=== PATIENT | female | born 1975 | race Hispanic/Latino ===

== ENCOUNTER 2018-05-17 19:08 | Emergency (ER) | payer OTHER ==
[~2018-05-17] VITALS: Ht 157.5 cm; Wt 133.4 kg
--- OUTSIDE RECORDS SUMMARY | ~2018-05-17 | XMS | Encounter Summary ---
Demographics + + + | Address | [address] | | | [place] [address] | + + + | Home Phone | | + + + | Preferred Language | Unknown | + + + | Marital Status | Legally | + + + | Faith Affiliation | 1025 | + + + | Race | Unknown | + + + | Ethnic Group | Unknown | + + + Author + + + | Author | [facility] | | | and [place] | + + + | Organization | [facility] | | | and [place] | + + + | Address | Unknown | + + + | Phone | Unavailable | + + + Support + + + + + | Name | Relationship | Address | Phone | + + + + + | Mar Ahmadi | ECON | NA | | | | | [place] [address] | | + + + + + | Magdaleno Vásquez | ECON | [address] | | | o | | [place] | | | | | [address] | | + + + + + Care Team Providers + +------+ + | Care Lapidary Apprentice Name | Role | Phone | + +------+ + | Barbara Hill MD | PCP | | + +------+ + Reason for Visit + + + | Reason | Comments | + + + | Mental Health | | | Problem | | + + + Encounter Details +--------+ + + + + | Date | Type | Department | Care Team | Description | +--------+ + + + + | 03/27/ | Emergency | [facility] | Yemi Brian, | Bipolar I disorder, | | 2019 | | [facility] | [address] | single manic | | | | CENTER [address] | [place], [place] | episode, severe, | | | | [place], [place] | [phone] | with psychosis (HCC) | | | | [address] | | (Primary Dx); | | | | [phone] | Luke Fuentes | Medical clearance | | | | | MD Iman [address] | for psychiatric | | | | | ST [place], [place] | admission | | | | | [address] | | | | | | [phone] | | | | | | | | +--------+ + + + + Social History + +-------+ +--------+------+ | Tobacco Use | Types | Packs/Day | Years | Date | | | | | Used | | + +-------+ +--------+------+ | Never Smoker | | | | | + +-------+ +--------+------+ + +---+---+---+ | Smokeless Tobacco: | | | | | Never Used | | | | + +---+---+---+ + + +---------+ + | Alcohol Use | Drinks/We | oz/Week | Comments | | | ek | | | + + +---------+ + | No | | | Was told she cannot drink after bariatirc | | | | | surgery - did not drink much before | + + +---------+ + + + + | Sex Assigned at | Date Recorded | | | | + + + | Not on file | | + + + as of this encounter Last Filed Vital Signs + + + + | Vital Sign | Reading | Time Taken | + + + + | Blood Pressure | 138/86 | 03/27/2018 1619 PST | + + + + | Pulse | 115 | 03/27/20181618 PST | + + + + | Temperature | 36.8 C (98.3 F) | 03/27/20181618 PST | + + + + | Respiratory Rate | 16 | 03/27/20181618 PST | + + + + | Oxygen Saturation | 99% | 03/27/20181618 PST | + + + + | Inhaled Oxygen | - | - | | Concentration | | | + + + + | Weight | - | - | + + + + | Height | - | - | + + + + | Body Mass Index | - | - | + + + + in this encounter Medications at Time of Discharge + + +-------+---------+ + + | Medication | Sig. | Disp. | Refills | Start | End Date | | | | | | Date | | + + +-------+---------+ + + | Calcium | Take 1 tablet by | | | | | | Citrate-Vitamin D | mouth Daily. | | | | | | (CALCIUM CITRATE + | | | | | | | PO) | | | | | | + + +-------+---------+ + + | cyanocobalamin | Take 1,000 mcg by | | | | | | (VITAMIN B-12) 1000 | mouth Daily. | | | | | | MCG tablet | | | | | | + + +-------+---------+ + + | metFORMIN | Take 1,000 mg by | | | 07/09/19 | | | (GLUCOPHAGE) 500 mg | mouth 2 times daily | | | 18 | | | tablet | (with breakfast & | | | | | | | dinner). | | | | | + + +-------+---------+ + + | Multiple | Take 1 tablet by | | | | | | Vitamins-Minerals | mouth Daily. | | | | | | (MULTIVITAMIN ADULT | | | | | | | PO) | | | | | | + + +-------+---------+ + + as of this encounter Plan of Treatment +--------+ + + + + | Date | Type | Specialty | Care Team | Description | +--------+ + + + + | 08/05/ | Office | Cardiology | Kev Dumont | | | 2018 | Visit | | MD Noe [address] | | | | | [address] [place] | | | | | | [place] [address] | | | | | | [phone] | | | | | | | | +--------+ + + + + | 02/24/ | Appointment | Oncology | Guillermo, | | | 2018 | | | Luke Antony MD [address] | | | | | [address] [place] | | | | | | [place] [address] | | | | | | [phone] | | | | | | | | +--------+ + + + + as of this encounter Procedures + +--------+ + + + | Procedure Name | Priori | Date/Time | Associated Diagnosis | Comments | | | ty | | | | + +--------+ + + + | POC GLUCOSE | Routin | 03/27/2018 | | Results for this | | | e | 1211 PST | | procedure are in the | | | | | | results section. | + +--------+ + + + | POC GLUCOSE | Routin | 03/27/2018 | | Results for this | | | e | 0846 PST | | procedure are in the | | | | | | results section. | + +--------+ + + + | HCG, URINE, QUAL | STAT | 03/27/2018 | | Results for this | | | | 0222 PST | | procedure are in the | | | | | | results section. | + +--------+ + + + | DRUGS OF ABUSE, | STAT | 03/27/2018 | | Results for this | | SCREEN, URINE | | 0222 PST | | procedure are in the | | | | | | results section. | + +--------+ + + + | CBC WITH | STAT | 03/27/2018 | | Results for this | | DIFFERENTIAL | | 221 PST | | procedure are in the | | | | | | results section. | + +--------+ + + + | TSH | STAT | 03/27/2018 | | Results for this | | | | 0222 PST | | procedure are in the | | | | | | results section. | + +--------+ + + + | ALCOHOL | STAT | 03/27/2018 | | Results for this | | | | 022 PST | | procedure are in the | | | | | | results section. | + +--------+ + + + | ACETAMINOPHEN LEVEL | STAT | 03/27/2018 | | Results for this | | | | 2 PST | | procedure are in the | | | | | | results section. | + +--------+ + + + | SALICYLATE LEVEL | STAT | 03/27/2018 | | Results for this | | | | 0222 PST | | procedure are in the | | | | | | results section. | + +--------+ + + + | COMPREHENSIVE | STAT | 03/27/2018 | | Results for this | | METABOLIC PANEL | | 2 PST | | procedure are in the | | | | | | results section. | + +--------+ + + + in this encounter Results POC Glucose (03/27/2018 1211) + +---------+ + + | Component | Value | Ref Range | Performed At | + +---------+ + + | Glucose, POC | 235 (H) | 70 - 109 mg/dL | [facility] | | | | | [facility] | | | | | CENTER - | | | | | LABORATORY | + +---------+ + + + + | Specimen | + + | Blood | + + + + + + + | Performing | Address | City/State/Zipcode | Phone Number | | Organization | | | | + + + + + | [facility] | [address] | [place] | [phone] | | [facility] | | [address] | | | - LABORATORY | | | | + + + + + | [facility] | [address] | [place], [place] | | | [facility] | | [address] | | | - LABORATORY | | | | + + + + + POC Glucose (03/27/2018845) + +---------+ + + | Component | Value | Ref Range | Performed At | + +---------+ + + | Glucose, POC | 201 (H) | 70 - 109 mg/dL | [facility] | | | | | [facility] | | | | | CENTER - | | | | | LABORATORY | + +---------+ + + + + | Specimen | + + | Blood | + + + + + + + | Performing | Address | City/State/Zipcode | Phone Number | | Organization | | | | + + + + + | [facility] | [address] | [place], [place] | [phone] | | [facility] | | [address] | | | - LABORATORY | | | | + + + + + | [facility] | [address] | [place], [place] | | | [facility] | | [address] | | | - LABORATORY | | | | + + + + + TSH (03/27/2018221) + + + + + | Component | Value | Ref Range | Performed At | + + + + + | TSH | 1.07Comment: This is a | 0.45 - 5.33 uIU/mL | [facility] | | | third generation TSH | | [facility] | | | test. | | CENTER - | | | | | LABORATORY | + + + + + + + | Specimen | + + | Blood | + + + + + + + | Performing | Address | City/State/Zipcode | Phone Number | | Organization | | | | + + + + + | [facility] | [address] | [place] | [phone] | | [facility] | | [address] | | | - LABORATORY | | | | + + + + + | [facility] | [address] | [place], [place] | | | [facility] | | [address] | | | - LABORATORY | | | | + + + + + , Urine, Qual (03/27/2018221) + + + + + | Component | Value | Ref Range | Performed At | + + + + + | HCG SCREEN, URINE | Negative | Negative | [facility] | | | | | [facility] | | | | | CENTER - | | | | | LABORATORY | + + + + + + + | Specimen | + + | Urine - Urine, Clean | | Catch | + + + + + + + | Performing | Address | City/State/Zipcode | Phone Number | | Organization | | | | + + + + + | [facility] | [address] | [place], [place] | [phone] | | [facility] | | [address] | | | - LABORATORY | | | | + + + + + | [facility] | [address] | [place], [place] | | | [facility] | | [address] | | | - LABORATORY | | | | + + + + + Salicylate Level (03/27/2018221) + +-------+ + + | Component | Value | Ref Range | Performed At | + +-------+ + + | Salicylate Level | <4.0 | <30.0 mg/dL | [facility] | | | | | [facility] | | | | | CENTER - | | | | | LABORATORY | + +-------+ + + + + | Specimen | + + | Blood | + + + + + + + | Performing | Address | City/State/Zipcode | Phone Number | | Organization | | | | + + + + + | [facility] | [address] | [place] | [phone] | | [facility] | | [address] | | | - LABORATORY | | | | + + + + + | [facility] | [address] | [place] | | | [facility] | | [address] | | | - LABORATORY | | | | + + + + + Acetaminophen Level (03/27/2018221) + +-------+ + + | Component | Value | Ref Range | Performed At | + +-------+ + + | Acetaminophen Level | <10 | <10 ug/mL | [facility] | | | | | [facility] | | | | | CENTER - | | | | | LABORATORY | + +-------+ + + + + | Specimen | + + | Blood | + + + + + + + | Performing | Address | City/State/Zipcode | Phone Number | | Organization | | | | + + + + + | [facility] | [address] | [place] | [phone] | | [facility] | | [address] | | | - LABORATORY | | | | + + + + + | [facility] | [address] | [place] | | | [facility] | | [address] | | | - LABORATORY | | | | + + + + + Ethanol (03/27/2018221) + +-------+ + + | Component | Value | Ref Range | Performed At | + +-------+ + + | ALCOHOL, | <5 | <400 mg/dL | [facility] | | SERUM/PLASMA | | | [facility] | | | | | CENTER - | | | | | LABORATORY | + +-------+ + + + + | Specimen | + + | Blood | + + + + + + + | Performing | Address | City[facility] | Phone Number | | Organization | | | | + + + + + | [facility] | [address] | [place] | [phone] | | [facility] | | [address] | | | - LABORATORY | | | | + + + + + | [facility] | [address] | [place] | | | [facility] | | [address] | | | - LABORATORY | | | | + + + + + Drugs of Abuse, Screen, Urine (03/27/2018221) + + + + + | Component | Value | Ref Range | Performed At | + + + + + | Amphetamine Screen, | Negative | Negative | [facility] | | Urine | | | [facility] | | | | | CENTER - | | | | | LABORATORY | + + + + + | Barbiturates Screen, | Negative | Negative | [facility] | | Urine | | | [facility] | | | | | CENTER - | | | | | LABORATORY | + + + + + | Benzodiazepines | Positive (A) | Negative | [facility] | | Screen, Urine | | | [facility] | | | | | CENTER - | | | | | LABORATORY | + + + + + | Cannabinoids Screen, | Negative | Negative | [facility] | | Urine | | | [facility] | | | | | CENTER - | | | | | LABORATORY | + + + + + | Cocaine Screen, | Negative | Negative | [facility] | | Urine | | | [facility] | | | | | CENTER - | | | | | LABORATORY | + + + + + | Methadone Screen, | Negative | Negative | [facility] | | Urine | | | [facility] | | | | | CENTER - | | | | | LABORATORY | + + + + + | Opiates Screen, | Negative | Negative | [facility] | | Urine | | | [facility] | | | | | CENTER - | | | | | LABORATORY | + + + + + + + | Specimen | + + | Urine - Urine, Clean | | Catch | + + + + + + + | Performing | Address | City/State/Zipcode | Phone Number | | Organization | | | | + + + + + | [facility] | [address] | [place], [place] | [phone] | | [facility] | | [address] | | | - LABORATORY | | | | + + + + + | [facility] | [address] | [place], [place] | | | [facility] | | [address] | | | - LABORATORY | | | | + + + + + Comprehensive Metabolic Panel (03/27/2018221) + + + + + | Component | Value | Ref Range | Performed At | + + + + + | Na | 132 (L) | 136 - 149 mmol/L | [facility] | | | | | [facility] | | | | | CENTER - | | | | | LABORATORY | + + + + + | K | 4.2 | 3.5 - 5.1 mmol/L | [facility] | | | | | [facility] | | | | | CENTER - | | | | | LABORATORY | + + + + + | Cl | 97 (L) | 98 - 109 mmol/L | [facility] | | | | | [facility] | | | | | CENTER - | | | | | LABORATORY | + + + + + | CO2 | 22 (L) | 24 - 31 mmol/L | [facility] | | | | | [facility] | | | | | CENTER - | | | | | LABORATORY | + + + + + | Anion Gap | 13 | 3 - 16 mmol/L | [facility] | | | | | [facility] | | | | | CENTER - | | | | | LABORATORY | + + + + + | Glucose | 378 (H) | 70 - 109 mg/dL | [facility] | | | | | [facility] | | | | | CENTER - | | | | | LABORATORY | + + + + + | BUN | 16 | 7 - 18 mg/dL | [facility] | | | | | [facility] | | | | | CENTER - | | | | | LABORATORY | + + + + + | Creatinine | 0.56 (L) | 0.60 - 1.30 mg/dL | [facility] | | | | | [facility] | | | | | CENTER - | | | | | LABORATORY | + + + + + | eGFR if not | >60Comment: GLOMERULAR | >=60 mL/min/1.73m2 | [facility] | | NEPALESE | FILTRATION | | [facility] | | | RATE,ESTIMATED mL/min | | CENTER - | | | /[id number] than 60 | | LABORATORY | | | Chronic kidney | | | | | disease,if found over a | | | | | 3-month period.Less than | | | | | 15 Kidney | | | | | failureFor | | | | | Americans,multiply the | | | | | calculated GFR by 1.21. | | | | | | | | + + + + + | Ca | 9.8 | 8.3 - 10.5 mg/dL | [facility] | | | | | [facility] | | | | | CENTER - | | | | | LABORATORY | + + + + + | Albumin | 4.0 | 3.2 - 5.0 g/dL | [facility] | | | | | [facility] | | | | | CENTER - | | | | | LABORATORY | + + + + + | Bilirubin Total | 0.5Comment: This is an | 0.1 - 1.5 mg/dL | [facility] | | | appended report. These | | [facility] | | | results have been | | CENTER - | | | appended to a previously | | LABORATORY | | | preliminary verified | | | | | report. | | | + + + + + | Total Protein | 7.6 | 6.0 - 7.8 g/dL | [facility] | | | | | [facility] | | | | | CENTER - | | | | | LABORATORY | + + + + + | AST | 21Comment: This is an | 10 - 42 U/L | [facility] | | | appended report. These | | [facility] | | | results have been | | CENTER - | | | appended to a previously | | LABORATORY | | | preliminary verified | | | | | report. | | | + + + + + | ALT | 17Comment: This is an | 6 - 45 U/L | [facility] | | | appended report. These | | [facility] | | | results have been | | CENTER - | | | appended to a previously | | LABORATORY | | | preliminary verified | | | | | report. | | | + + + + + | Alkaline Phosphatase | 116 (H)Comment: This is | 40 - 110 U/L | [facility] | | | an appended report. | | [facility] | | | These results have been | | CENTER - | | | appended to a previously | | LABORATORY | | | preliminary verified | | | | | report. | | | + + + + + | Globulin | 3.6 | 2.1 - 3.8 g/dL | [facility] | | | | | [facility] | | | | | CENTER - | | | | | LABORATORY | + + + + + | Albumin/Globulin | 1.1 | 0.8 - 2.0 | [facility] | | Ratio | | | [facility] | | | | | CENTER - | | | | | LABORATORY | + + + + + | BUN/Creatinine Ratio | 28.6 | | [facility] | | | | | [facility] | | | | | CENTER - | | | | | LABORATORY | + + + + + + + | Specimen | + + | Blood | + + + + + + + | Performing | Address | City/State/Zipcode | Phone Number | | Organization | | | | + + + + + | [facility] | [address] | [place] | [phone] | | [facility] | | [address] | | | - LABORATORY | | | | + + + + + | [facility] | [address] | [place] | | | [facility] | | [address] | | | - LABORATORY | | | | + + + + + CBC with Differential (03/27/2018221) + + + + + | Component | Value | Ref Range | Performed At | + + + + + | WBC | 10.2 | 4.0 - 11.0 K/uL | [facility] | | | | | [facility] | | | | | CENTER - | | | | | LABORATORY | + + + + + | RBC | 4.66 | 3.70 - 5.20 M/uL | [facility] | | | | | [facility] | | | | | CENTER - | | | | | LABORATORY | + + + + + | Hemoglobin | 13.7 | 11.5 - 16.0 g/dL | [facility] | | | | | [facility] | | | | | CENTER - | | | | | LABORATORY | + + + + + | Hematocrit | 41.9 | 34.0 - 47.0 % | [facility] | | | | | [facility] | | | | | CENTER - | | | | | LABORATORY | + + + + + | MCV | 89.9 | 83.0 - 101.0 fL | [facility] | | | | | [facility] | | | | | CENTER - | | | | | LABORATORY | + + + + + | MCH | 29.4 | 28.0 - 35.0 pg | [facility] | | | | | [facility] | | | | | CENTER - | | | | | LABORATORY | + + + + + | MCHC | 32.7 | 32.0 - 36.0 g/dL | [facility] | | | | | [facility] | | | | | CENTER - | | | | | LABORATORY | + + + + + | RDW-CV | 12.3 | <15.0 % | [facility] | | | | | [facility] | | | | | CENTER - | | | | | LABORATORY | + + + + + | RDW-SD | 40.8 | 35.1 - 46.3 fL | [facility] | | | | | [facility] | | | | | CENTER - | | | | | LABORATORY | + + + + + | Platelet Count | 367 | 140 - 440 K/uL | [facility] | | | | | [facility] | | | | | CENTER - | | | | | LABORATORY | + + + + + | MPV | 8.9 | 6.5 - 12.4 fL | [facility] | | | | | [facility] | | | | | CENTER - | | | | | LABORATORY | + + + + + | % Neutrophils | 81.3 | 45.0 - 82.0 % | [facility] | | | | | [facility] | | | | | CENTER - | | | | | LABORATORY | + + + + + | % Lymphocytes | 13.4 (L) | 20.0 - 45.0 % | [facility] | | | | | [facility] | | | | | CENTER - | | | | | LABORATORY | + + + + + | % Monocytes | 4.5 | 4.0 - 12.0 % | [facility] | | | | | [facility] | | | | | CENTER - | | | | | LABORATORY | + + + + + | % Eosinophils | 0.2 | 0.0 - 5.0 % | [facility] | | | | | [facility] | | | | | CENTER - | | | | | LABORATORY | + + + + + | % Basophils | 0.2 | 0.0 - 1.0 % | [facility] | | | | | [facility] | | | | | CENTER - | | | | | LABORATORY | + + + + + | % Immature | 0.4Comment: For | 0.0 - 0.4 % | [facility] | | Granulocytes | patients, use the | | [facility] | | | special reference ranges | | CENTER - | | | listed below. | | LABORATORY | + + + + + | Absolute Neutrophils | 8.30 | 1.80 - 8.50 K/uL | [facility] | | | | | [facility] | | | | | CENTER - | | | | | LABORATORY | + + + + + | Absolute Lymphocytes | 1.37 | 0.60 - 3.20 K/uL | [facility] | | | | | [facility] | | | | | CENTER - | | | | | LABORATORY | + + + + + | Absolute Monocytes | 0.46 | 0.00 - 1.00 K/uL | [facility] | | | | | [facility] | | | | | CENTER - | | | | | LABORATORY | + + + + + | Absolute Eosinophils | 0.02 | 0.00 - 0.40 K/uL | [facility] | | | | | [facility] | | | | | CENTER - | | | | | LABORATORY | + + + + + | Absolute Basophils | 0.02 | 0.00 - 0.10 K/uL | [facility] | | | | | [facility] | | | | | CENTER - | | | | | LABORATORY | + + + + + | Absolute Immature | 0.04 (H)Comment: For | 0.00 - 0.03 K/uL | [facility] | | Granulocytes | patients, use | | [facility] | | | the special reference | | CENTER - | | | ranges listed below. | | LABORATORY | + + + + + | % nRBC | 0 | 0 - 2 per 100 WBC's | [facility] | | | | | [facility] | | | | | CENTER - | | | | | LABORATORY | + + + + + | Absolute nRBC | 0.00 | 0.00 - 0.01 K/uL | [facility] | | | | | [facility] | | | | | CENTER - | | | | | LABORATORY | + + + + + + + | Specimen | + + | Blood | + + + + + | Narrative | Performed At | + + + | IMMATURE GRANULOCYTES - For patients, use the following | [facility] | | reference ranges: Trim. Absolute (K/uL) Percentage (%) | [facility] | | 1st 0.003-0.091 K/uL 0.0-0.9% 2nd 0.007-0.247 K/uL [facility] | | 0.1-2.0% 3rd 0.018-0.456 K/uL 0.1-2.0% | - LABORATORY | + + + + + + + + | Performing | Address | City/State/Zipcode | Phone Number | | Organization | | | | + + + + + | [facility] | [address] | [place], [place] | [phone] | | [facility] | | [address] | | | - LABORATORY | | | | + + + + + | [facility] | [address] | [place], [place] | | | [facility] | | [address] | | | - LABORATORY | | | | + + + + + in this encounter Visit Diagnoses + + | Diagnosis | + + | Bipolar I disorder, single manic episode, severe, with psychosis (HCC) - Primary | + + | Bipolar I disorder, single manic episode, severe, specified as with psychotic behavior | + + | Medical clearance for psychiatric admission | + + Administered Medications + +--------+ +--------+------+------+ | Medication Order | MAR | Action | Dose | Rate | Site | | | Action | Date | | | | + +--------+ +--------+------+------+ | acetaminophen (TYLENOL) tablet | Given | 03/27/2018 | 650 mg | | | | 650 mg 650 mg, Oral, ONCE, Sat | | 9:58 | | | | | 03/27/18 at 0955, For 1 dose | | PST | | | | + +--------+ +--------+------+------+ +---+---+ | | | +---+---+ + +-------+ +------+---+---+ | LORazepam (ATIVAN) tablet 2 mg | Given | 03/27/2018 | 2 mg | | | | 2 mg, Oral, ONCE, 03/27/18 at | | 16:32 | | | | | 1625, For 1 dose | | PST | | | | + +-------+ +------+---+---+ +---+---+ | | | +---+---+ + +-------+ +--------+---+---+ | metFORMIN (GLUCOPHAGE) tablet | Given | 03/27/2018 | 500 mg | | | | 500 mg 500 mg, Oral, 2 TIMES | | 9:58 | | | | | DAILY WITH BREAKFAST & DINNER, | | PST | | | | | First dose on 03/27/18 at 0935, | | | | | | | Follow hospital guidelines to | | | | | | | determine if metFORMIN should be | | | | | | | held following procedures using | | | | | | | IV iodinated contrast. | | | | | | + +-------+ +--------+---+---+ +---+---+ | | | +---+---+ + +-------+ +--------+---+---+ | metFORMIN (GLUCOPHAGE) tablet | Given | 03/27/2018 | 500 mg | | | | 500 mg 500 mg, Oral, ONCE, Sat | | 12:48 | | | | | 03/27/18 at 1225, For 1 dose, | | PST | | | | | Follow hospital guidelines to | | | | | | | determine if metFORMIN should be | | | | | | | held following procedures using | | | | | | | IV iodinated contrast. | | | | | | + +-------+ +--------+---+---+ +---+---+ | | | +---+---+ + +-------+ +------+---+ + | midazolam (VERSED) 5 mg/mL | Given | 03/27/2018 | 5 mg | | Glut-Rig | | injection 5 mg 5 mg, | | 1:12 | | | ht | | Intramuscular, ONCE, 03/27/18 | | PST | | | | | at 0100, For 1 dose | | | | | | + +-------+ +------+---+ + +---+---+ | | | +---+---+ + +-------+ +------+---+ + | midazolam (VERSED) 5 mg/mL | Given | 03/27/2018 | 5 mg | | Ventrogl | | injection 5 mg 5 mg, | | 13:10 | | | uteal-Le | | Intramuscular, ONCE, 03/27/18 | | PST | | | ft | | at 1240, For 1 dose | | | | | | + +-------+ +------+---+ + +---+---+ | | | +---+---+ + +-------+ +-------+---+ + | OLANZapine (zyPREXA) injection | Given | 03/27/2018 | 10 mg | | Deltoid- | | 10 mg 10 mg, Intramuscular, | | 1:12 | | | Left | | ONCE, 03/27/18 at 0100, For 1 | | PST | | | | | dose, Mix with 2.1 mL sterile | | | | | | | water to make 5 mg/mL. Do not | | | | | | | exceed 30 mg/day. | | | | | | + +-------+ +-------+---+ + +---+---+ | | | +---+---+ + +-------+ +------+---+---+ | OLANZapine zydis (zyPREXA | Given | 03/27/2018 | 5 mg | | | | ZYDIS) disintegrating tablet 5 mg | | 9:58 | | | | | 5 mg, Oral, ONCE, 03/27/18 at | | PST | | | | | 0955, For 1 dose | | | | | | + +-------+ +------+---+---+ +---+---+ | | | +---+---+ in this encounter"
--- OUTSIDE RECORDS SUMMARY | ~2018-05-17 | XMS | Encounter Summary ---
Demographics + + + | Address | [address] | | | [place] [address] | + + + | Home Phone | | + + + | Preferred Language | Unknown | + + + | Marital Status | Legally | + + + | Sikhism Affiliation | 1025 | + + + | Race | Unknown | + + + | Ethnic Group | Unknown | + + + Author + + + | Author | [facility] | | | and [place] | + + + | Organization | [facility] | | | and [place] | + + + | Address | Unknown | + + + | Phone | Unavailable | + + + Support + + + + + | Name | Relationship | Address | Phone | + + + + + | Mar Ahmadi | ECON | NA | | | | | [place] [address] | | + + + + + | Magdaleno Vásquez | ECON | [address] | | | o | | [place] | | | | | [address] | | + + + + + Care Team Providers + +------+ + | Care Superintendent Ammunition Storage Name | Role | Phone | + +------+ + | Barbara Hill MD | PCP | | + +------+ + Reason for Visit +---------+ + | Reason | Comments | +---------+ + | No Show | | +---------+ + Encounter Details +--------+ + + + + | Date | Type | Department | Care Team | Description | +--------+ + + + + | 02/19/ | Telephone | [facility] | Alyssia Perez, | No Show | | 2018 | | MED CTR THERAPY PT | PT [address] | | | | | OP [address] | [place] | | | | | [place] | [id number] | | | | | [address] | | | | | | [phone] | | | +--------+ + + + [...] + + + as of this encounter Plan of Treatment +--------+ + + + + | Date | Type | Specialty | Care Team | Description | +--------+ + + + + | 08/05/ | Office | Cardiology | Kev Dumont | | | 2018 | Visit | | MD Prosper [address] | | | | | | [address] [place] | | | | | | [place] [address] | | | | | | [phone] | | | | | | | | +--------+ + + + + | 02/24/ | Appointment | Oncology | Guillermo, | | | 2018 | | | MD Prosper [address] | | | | | | [address] [place] | | | | | | [place] [address] | | | | | | [phone] | | | | | | | | +--------+ + + + + as of this encounter Visit Diagnoses Not on filein this encounter"
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
--- OUTSIDE RECORDS SUMMARY | ~2018-05-17 | XMS | Encounter Summary ---
Demographics + + + | Address | [address] | | | [place] [address] | + + + | Home Phone | | + + + | Preferred Language | Unknown | + + + | Marital Status | Legally | + + + | Restoration Affiliation | 1025 | + + + | Race | Unknown | + + + | Ethnic Group | Unknown | + + + Author + + + | Author | [facility] | | | and [place] | + + + | Organization | [facility] | | | and [place] | + + + | Address | Unknown | + + + | Phone | Unavailable | + + + Support + + + + + | Name | Relationship | Address | Phone | + + + + + | Mar Ahmadi | ECON | NA | | | | | [place] [address] | | + + + + + | Magdaleno Vásquez | ECON | [address] | | | o | | [place] | | | | | [address] | | + + + + + Care Team Providers + +------+ + | Care Shift Superintendent Name | Role | Phone | + +------+ + | Barbara Hill MD | PCP | | + +------+ + Reason for Visit + + + | Reason | Comments | + + + | Therapy Daily | | | Treatment | | + + + Encounter Details +--------+---------+ + + + | Date | Type | Department | Care Team | Description | +--------+---------+ + + + | 02/22/ | Office | [facility] | Homer Barrios | Acute pain of right | | 2018 | Visit | MED CTR THERAPY PT | [address] | knee; Presence of | | | | OP [address] | [facility] | right artificial | | | | [place] | [place] [address] | knee joint | | | | [address] | [phone] | | | | | [phone] | | | | | | | Alyssia Perez B, PT | | | | | | [address] | | | | | | [place] | | | | | | [address] | | | | | | | | +--------+---------+ + + + Social History + +-------+ [...] + + + as of this encounter Progress Notes Alyssia Perez, PT - 02/22/2018 1345 PSTFormatting of this note may be different from the or iginal. [facility] CTR THERAPY PT OP [address] [place] [address] Physical Therapy Daily Treatment Note Date: 02/22/2018 Patient Information Patient Name: Desire Ahmadi Date of : 1975 Age: 42 y.o. Encounter Diagnoses Code Name Primary? M25.561 Acute pain of right knee Z96.651 Presence of right artificial knee joint Date of Onset: 11/12/2017 Referring Provider: Homer Barrios PA-C # of PT Visits to Date: 14 Start Time: 1355 Stop time: 1430 Duration: 35 minutes Timed Treatment Codes: 35 minutes Rehab Precautions Office Visit from 12/04/2017 in [facility] CTR THERAPY PT OP Rehab Precautions Precautions None Pain Assessment: Pain Rating Pre Assessment: 0 Subjective: Desire arrives at her therapy appointment 10 minutes late today; pt reports that she is doi ng well with no knee pain. Objective: Right knee AROM: 4-115 deg Therapeutic exercise to improve strength, coordination and neuromotor control for right LE: -biodex stepper: level 2 for 5 min. -supine: assisted leg lowering to bolster 2x10 each -supine: leg lock bridge 2x5 -Quad sets with heel on towel roll, 2 x 10, 10 sec hold -total gym: squats with red band at knees level 22 for 5 min. With focus on knee flexion, h eel raises for 3 min with focus on knee extension increased time to ensure good quality movements Assessment: Pt tolerated session well and demonstrated improve ROM and motor control with all activitie s. Pt does cont. To have limited knee ROM bilaterally and decreased quad strength but is slo wly improving. Pt would benefit from cont. Therapy to progress ROM and motor control to impr ove gait mechanics and ability to complete daily tasks. Plan: Cont. To progress right knee ROM/strength, manual therapy as indicated (can only schedule s appts at this time) Electronically signed by: Alyssia Perez PT, 02/22/2018 14:31 Patient Name: Desire Ahmadi/: 1975/ in this encounter Plan of Treatment +--------+ + + + + | Date | Type | Specialty | Care Team | Description | +--------+ + + + + | 08/05/ | Office | Cardiology | Kev Dumont | | | 2019 | Visit | | MD Noe [address] | | | | | | [address] | | | | | | [place] [address] | | | | | | [phone] | | | | | | | | +--------+ + + + + | 02/24/ | Appointment | Oncology | Guillermo, | | | 2018 | | | Luke Antony MD [address] | | | | | | [address] | | | | | | [place] [address] | | | | | | [phone] | | | | | | | | +--------+ + + + + as of this encounter Visit Diagnoses + + | Diagnosis | + + | Acute pain of right knee | + + | Presence of right artificial knee joint | + + | Knee joint replacement by other means | + +"
--- OUTSIDE RECORDS SUMMARY | ~2018-05-17 | XMS | Clinical Summary ---
Demographics + + + | Address | [address] | | | [place] [address] | + + + | Home Phone | | + + + | Preferred Language | Unknown | + + + | Marital Status | | + + + | Rastafarian Affiliation | JEH | + + + | Race | White | + + + | Ethnic Group | or | + + + Author + + + | Author | [facility] | + + + | Organization | [facility] | + + + | Address | Unknown | + + + | Phone | Unavailable | + + + Support + + +---------+ + | Name | Relationship | Address | Phone | + + +---------+ + | ISAIAS AHMADI | ECON | Unknown | | + + +---------+ + | Mar Ahmadi | ECON | Unknown | | + + +---------+ + Care Team Providers + +------+ + | Care Supervisor Real Estate Office Name | Role | Phone | + +------+ + | Barbara Hill MD | PP | | + +------+ + Source Comments NATASHA is fully live on both [facility] and [facility] Allergies No Known Allergies Current Medications + + +--------+---------+------+------+-------+ | Prescription | Sig. | Disp. | Refills | Star | End | Statu | | | | | | t | Date | s | | | | | | Date | | | + + +--------+---------+------+------+-------+ | ATORVASTATIN 20 mg | TAKE ONE TABLET BY | 30 | 1 | 12/2 | | Activ | | oral tablet | MOUTH AT BEDTIME | tablet | | 2/20 | | e | | | | | | 15 | | | + + +--------+---------+------+------+-------+ | ARIPIPRAZOLE | Take 5 mg by mouth | | | | | Activ | | (ABILIFY ORAL) | once daily at | | | | | e | | | bedtime. | | | | | | + + +--------+---------+------+------+-------+ | FLUOXETINE HCL | Take 5 mg by mouth | | | | | Activ | | (FLUOXETINE ORAL) | once daily. Patient | | | | | e | | | takes 1/2 of 10mg | | | | | | | | tablet | | | | | | + + +--------+---------+------+------+-------+ | metFORMIN 500 mg | Take 1,000 mg by | | | | | Activ | | oral tablet | mouth two times | | | | | e | | | daily. | | | | | | + + +--------+---------+------+------+-------+ | LORazepam 1 mg | Take 1 mg by mouth | | | | | Activ | | oral tablet | once daily as needed | | | | | e | | | (aggitation). | | | | | | + + +--------+---------+------+------+-------+ | Cholecalciferol, | Take 1 tablet by | 90 | 0 | 10/1 | | Activ | | Vitamin D3, 2,000 | mouth once daily. | tablet | | 8/20 | | e | | unit oral tablet | | | | 16 | | | + + +--------+---------+------+------+-------+ | ALBERTSONS CALCIUM | Take 1 tablet by | | | | | Activ | | 500 mg oral tablet | mouth two times | | | | | e | | | daily. | | | | | | + + +--------+---------+------+------+-------+ | cyanocobalamin | Take 1,000 mcg by | | | | | Activ | | (VITAMIN B-12) 1,000 | mouth every two | | | | | e | | mcg oral tablet | days. | | | | | | + + +--------+---------+------+------+-------+ | PEDIATRIC MULTIVIT | Take 2 tablets by | | | | | Activ | | COMB NO.28 (CHILD | mouth once daily. 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 ([facility]) | 08/02/2015 | + + + | Diabetes mellitus with insulin therapy (HCC) | 07/21/2014 | + + + | Abnormal EKG | 06/05/2014 | + + + | Gait difficulty | 05/11/2014 | + + + Resolved Problems + + + + | Problem | Noted | Resolved | | | Date | Date | + + + + | Physical deconditioning | 08/02/19 | | | | 16 | 7 | + + + + | Morbid obesity with BMI of 50.0-59.9, adult ([facility]) | 05/11/19 | | | | 15 | 7 | + + + + Family History + + +------+ + | Medical History | Relation | Name | Comments | + + +------+ + | Anesthesia | Brother | | | + + +------+ + | Depression | Mother | | | + + +------+ + | Diabetes | Mother | | | + + +------+ + | Diabetes | Sister | | | + + +------+ + | Heart Disease | Neg Hx | | | + + +------+ + + +------+ + + | Relation | Name | Status | Comments | + +------+ + + | Brother | | Alive | | + +------+ + + | Brother | | | | + +------+ + + | Father | | | natural | + +------+ + + | Mother | | | diabetes | | | | (Age | | | | | 60) | | + +------+ + + | Sister | | Alive | | + +------+ + + | Sister | | | | + +------+ + + Social History + +-------+ +--------+------+ [...] + + +---------+ + | No | 0 | 0.0 | | | | Standard | | | | | drinks or | | | | | | | | | | equivalen | | | | | t | | | + + +---------+ + + + + | Sex Assigned at | Date Recorded | | | | + + + | Not on file | | + + + Last Filed Vital Signs + + + + | Vital Sign | Reading | Time Taken | + + + + | Blood Pressure | 129/62 | 10/24/2016 9:56 AM PDT | + + + + | Pulse | 86 | 10/24/2016 9:56 AM PDT | + + + + | Temperature | 36.8 C (98.2 F) | 10/24/2016 9:56 AM PDT | + + + + | Respiratory Rate | 18 | 10/24/2016 9:56 AM PDT | + + + + | Oxygen Saturation | 96% | 05/15/2016 1:01 PM PST | + + + + | Inhaled Oxygen | - | - | | Concentration | | | + + + + | Weight | 95.7 kg (211 lb) | 10/24/2016 9:56 AM PDT | + + + + | Height | 157.5 cm (5' 2") | 10/24/2016 9:56 AM PDT | + + + + | Body Mass Index | 38.59 | 10/24/2016 9:56 AM PDT | + + + + Plan of Treatment + + + + + | Health Maintenance | Due Date | Last Done | Comments | + + + + + | Pneumococcal (Adult) | | | | | (1 of 1 - PPSV23) | 4 | | | + + + + + | Influenza (Flu) | | 03/02/2007, 03/02/2007 | | | vaccination (#1) | 8 | | | + + + + + Implants + +------+--------+ +--------+--------+--------+ | Implanted | Type | Area | Manufacture | Device | Expira | Model | | | | | r | | tion | / | | | | | | Identi | Date | Serial | | | | | | fier | | / Lot | + +------+--------+ +--------+--------+--------+ | Reinforcement Staple Line | | N/A: | [employer] | | 06/20/ | [id number] | | Bioabsorbable Sterile | | Abdome | [employer] | | 2019 | [id number] / | | Seamguard Latex Free | | n | | | | | | Disposable Blue Gold Green - | | | | | | /[id number] | | [id number]: Qty: 2 on | | | | | | 211 | | 10/08/2015 by Dina Rodriguez | | | | | | | | MD Iman | | | | | | | + +------+--------+ +--------+--------+--------+ | Sridevi Ledesma Implanted: | | N/A: | [id number] | | 02/19/ | [id number] | | Qty: 2 on 10/08/2015 by | | Alexandra | | | 2017 | 5 / | | Dina Rodriguez MD | | n | | | | /[id number] | | | | | | | | 483 | + +------+--------+ +--------+--------+--------+ Results Not on filefrom Last 3 Months Insurance + +--------+ +--------+ + + | Payer | Benefi | Subscriber | Type | Phone | Address | | | t Plan | ID | | | | | | / | | | | | | | Group | | | | | + +--------+ +--------+ + + | MEDICARE | MEDICA | xxxxxxxxxx | Medica | [phone] [phone] | | | RE A & | | re | [phone] | [place] [phone] | | | B | | | | | + +--------+ +--------+ + + | LOCKSMITH HELPER MEDICAID | LOCKSMITH HELPER | xxxxxxxx | Medica | | | | | [place] | | id | | | | | [place] | | | | | + +--------+ +--------+ + + + +--------+ +--------+ + + | Guarantor Name | Accoun | Relation to | Date | Phone | Billing Address | | | t Type | Patient | of | | | | | | | | | | + +--------+ +--------+ + + | MARIELOS CARROLL | Person | Self [birth year] Home: | [address] | | A | al/[place] | | 1975 | [phone] [place] | | | mikayla | | [phone] | + +--------+ +--------+ + +
--- OUTSIDE RECORDS SUMMARY | ~2018-05-17 | XMS | Encounter Summary ---
Demographics + + + | Address | [address] | | | [place] [address] | + + + | Home Phone | | + + + | Preferred Language | Unknown | + + + | Marital Status | Legally | + + + | Christianity Affiliation | 1025 | + + + | Race | Unknown | + + + | Ethnic Group | Unknown | + + + Author + + + | Author | [facility] | | | and [place] | + + + | Organization | [facility] | | | and [place] | + + + | Address | Unknown | + + + | Phone | Unavailable | + + + Support + + + + + | Name | Relationship | Address | Phone | + + + + + | Mar Ahmadi | ECON | NA | | | | | [place] [address] | | + + + + + | Magdaleno Vásquez | ECON | [address] | | | o | | [place] | | | | | [address] | | + + + + + Care Team Providers + +------+ + | Care Supervisor Cutting Department Name | Role | Phone | + [...] + + | 02/22/ | Office | [facility] | Homer Barrios | Acute pain of right | | 2018 | Visit | MED CTR THERAPY PT | [address] | knee; Presence of | | | | OP [address] | [facility] | right artificial | | | | [address] [place] | [place] [address] | knee joint | | | | [address] | [phone] | | | | | [phone] | | | | | | | Alyssia Perez B, PT | | | | | | [address] | | | | | | [place] | | | | | | [address] | | | | | | | [...] may be different from the or iginal. [facility] CTR THERAPY PT OP [address] [place] [address] Physical Therapy Daily Treatment Note Date: 02/22/2018 [...] Rehab Precautions Office Visit from 12/04/2017 in [facility] CTR THERAPY PT OP Rehab Precautions Precautions [...] | | | | | | [place] [address] | | | | | | [phone] | | | | | | | | +--------+ + + + + | 02/24/ | Appointment | Oncology | Guillermo, | | | 2018 | | | Luke Antony MD [address] | | | | | | [address] | | | | | | [place] [address] | | | | | | [phone] | | | | | | | | +--------+ + + + + as of this encounter Visit Diagnoses + + | Diagnosis | + + | Acute pain of right knee | + + | Presence of right artificial knee joint | + + | Knee joint replacement by other means | + +"
--- OUTSIDE RECORDS SUMMARY | ~2018-05-17 | XMS | Encounter Summary ---
Demographics + + + | Address | [address] | | | [place] [address] | + + + | Home Phone | | + + + | Preferred Language | Unknown | + + + | Marital Status | Legally | + + + | Anabaptism Affiliation | 1025 | + + + | Race | Unknown | + + + | Ethnic Group | Unknown | + + + Author + + + | Author | [facility] | | | and [place] | + + + | Organization | [facility] | | | and [place] | + + + | Address | Unknown | + + + | Phone | Unavailable | + + + Support + + + + + | Name | Relationship | Address | Phone | + + + + + | Mar Garrett | ECON | NA | | | | | [place] [address] | | + + + + + | Magdaleno Vásquez | ECON | [address] | | | o | | [place] | | | | | [address] | | + + + + + Care Team Providers + +------+ + | Care Boring Machine Feeder Name | Role | Phone | + +------+ + | Barbara Hill MD | PCP | | + +------+ + Encounter Details +--------+ + + + + | Date | Type | Department | Care Team | Description | +--------+ + + + + | 02/22/ | Hospital | [facility] | [place], | Iron deficiency | | 2018 | Encounter | [facility] | Luke Antony MD [address] | anemia following | | | | [facility] [address] | [facility] | bariatric surgery; | | | | [facility] | [place] [address] | Iron deficiency | | | | [place] [address] | [phone] | anemia due to | | | | [phone] | | chronic blood loss; | | | | | | Bipolar affective | | | | | | disorder, remission | | | | | | status unspecified | | | | | | ([facility]); Borderline | | | | | | personality disorder | | | | | | ([facility]); Diabetes | | | | | | mellitus with | | | | | | insulin therapy | | | | | | ([facility]); DM type 2 | | | | | | without retinopathy | | | | | | ([facility]); Morbid | | | | | | obesity ([facility]) | +--------+ + + + + Social [...] + + + | Blood Pressure | 131/76 | 02/22/20181055 PST | + + + + | Pulse | 82 | 02/22/20181055 PST | + + + + | Temperature | 36.4 C (97.6 F) | 02/22/20181055 PST | + + + + | Respiratory Rate | 16 | 02/22/20181055 PST | + + + + | Oxygen Saturation | 94% | 02/22/20181055 PST | + + + + | Inhaled Oxygen | - | - | | Concentration | | | + + + + | Weight | 92.8 kg (204 lb 9.4 | 02/22/20181055 PST | | | oz) | | + + + + | Height | - | - | + + + + | Body Mass Index | 37.42 | 02/22/2018 1056 PST | + + + + in [...] +-------+---------+ + + as of this encounter Progress Notes Luke Li MD - 02/22/2018 1051 PSTFormatting of this note may be different fro m the original. Hematology/Oncology Progress Note [facility] [place], [place] Pt. Name/Age/: Desire Garrett 42 y.o. 1975 Med. Record Number: [id number] Date of admission: 02/22/2018 Identifying Statement: Desire Garrett is a 42 y.o. female from [address] [place] [address] with Iron Deficiency following bariatric surgery. The patient chart and medications were reviewed in detail and the patient was seen and exam ined. History of Present Illnesses, their Current Assessments and Plans: Problem List Bipolar disorder Overview Overview: Managed by Max Toney. With psychosis Dx Name changed by system update on 01/02/2017 Last Assessment & Plan: Encouraged patient to stay on medication chronically Borderline personality disorder Overview Overview: consist symptoms. Overview: consist symptoms. Diabetes mellitus with insulin therapy DM type 2 without retinopathy Iron deficiency anemia due to chronic blood loss Iron deficiency anemia following bariatric surgery Overview ACTIVE DIAGNOSIS; Iron deficiency following bariatric surgery. 1. Eunice en Y Gastric Bypass October 08, 2015 at [facility]. 2. Patient continues to menstruate regularly following bypass surgery. 3. Iron Studies at [facility] January 04, 2016; Iron 47 ug/dl, TIBC 441 ug/dl, Saturation 11 %, F erritin 15 ng/ml. 4. Ferrlecit 125 mg iv weekly x 4 January,. 5. Iron Studies at [facility] July 07, 2016; Iron 45 ug/dl , TIBC 369 ug/dl, Saturation 7 %, Ferritin 7 ng/ml. 6. IUD placed in January,. 7. Ferrlecit 125 mg iv weekly x 4 in February,. Current Assessment & Plan Desire Garrett returned to clinic on 02/22/2018 for follow up of her iron deficienc y anemia. Interval history is notable for the fact that Desire had her right knee replaced. Review of systems is notable for the fact that Desire's menses remain light after placement of an IUD one year ago. She denies any PICA for ice. Clinical exam is negative for pallor. Laboratory exam is negative for anemia, tSat is 18%. Assessment; Iron deficiency anemia due to iron malabsorption following bariatric surgery-im proved after intravenous ferrlecit and interruption of menses with IUD. Plan; Continue to monitor. Clinical and laboratory follow up in one year. Morbid obesity Review of Systems: Constitutional: Reports energy level "is about the same. Weight loss from 92.8 kg on to 92.8 kg today, states that this intentional. Denies high fevers, shaking chills, anor exia, nausea, vomiting, or night sweats. Appetite without changes. Ear, Nose, Mouth, Throat: Denies odynophagia, dysphagia, or tinnitus. Cardiovascular: Denies shortness of breath, dyspnea on exertion, chest pain, palpitations o r orthopnea. Respiratory: Denies cough, hemoptysis, or sputum production. Gastrointestinal: Denies abdominal pain, constipation, diarrhea, melena, or bright red bloo d per rectum. Genitourinary: Denies hematuria or dysuria. Musculoskeletal: Reports joint pain in right knee, continues but improved. Neurologic: Occasional migraine reported. Denies visual changes, or numbness/tingling of th e extremities. Endocrine: Denies peripheral edema or heat/cold intolerance. Hematologic: Denies spontaneous bruising or bleeding. Integumentary: Denies rash, wounds or other skin concerns. Pain: Reports right knee pain 2/10 on scale of 0-10, goal <2/10, not taking anything for pa in. Note:6 month follow up and labs with Dr. Li My chart: Declined Scheduled Medications: Current Outpatient Prescriptions Medication Sig Dispense Refill Calcium Citrate-Vitamin D (CALCIUM CITRATE + PO) Take 1 tablet by mouth Daily. cyanocobalamin (VITAMIN B-12) 1000 MCG tablet Take 1,000 mcg by mouth Daily. metFORMIN (GLUCOPHAGE) 500 mg tablet Take 1,000 mg by mouth 2 times daily (with breakfa st & dinner). Multiple Vitamins-Minerals (MULTIVITAMIN ADULT PO) Take 1 tablet by mouth Daily. No current facility-administered medications for this encounter. Allergies: Allergy: No Known Allergies Past Medical and Surgical History, Social History and Problems: Past Medical History: Diagnosis Date Anxiety Bipolar 1 disorder (HCC) Depression Diabetes mellitus (HCC) Tachycardia Past Surgical History: Procedure Laterality Date BARIATRIC SURGERY October 08 2015 SECTION, CLASSIC KNEE ARTHROPLASTY Right REVISION TOTAL KNEE ARTHROPLASTY Right 11/12/2017 Procedure: Revision Right Total Knee Arthroplasty; Surgeon: Philippe Payne MD; Loc ation: [facility] TOE SURGERY 1999 Social History Social History Marital status: Legally Spouse name: N/A Number of children: N/A Years of education: N/A Occupational History Not on file. 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 Iron deficiency anemia due to chronic blood loss Iron deficiency anemia following bariatric surgery Abnormal EKG B12 nutritional deficiency Background diabetic retinopathy Bipolar disorder Borderline personality disorder Diabetes mellitus with insulin therapy DM type 2 without retinopathy Esophageal reflux Gait difficulty History of bariatric surgery Hypovitaminosis D Iron deficiency Menorrhagia with regular cycle Metrorrhagia Morbid obesity Obesity, morbid, BMI 50 or higher Osteoarthrosis Other and unspecified hyperlipidemia S/P gastric bypass Vitamin D deficiency Weight loss Right knee pain Presence of right artificial knee joint Objectives: Temp: 36.4 C (97.6 F) BP: 131/76 Pulse: 82 Resp: 16 SpO2: 94 % on Min/Max Temp past 24 hours:No Data Recorded No intake or output data in the 24 hours ending 02/28/18 1141 Wt. Admission: Weight: 92.8 kg (204 lb 9.4 oz) Wt. Current: Weight: 92.8 kg (204 lb 9.4 oz) Wt Readings from Last 3 Encounters: 02/23/18 92.5 kg (204 lb) 02/22/18 92.8 kg (204 lb 9.4 oz) 12/29/17 94.3 kg (208 lb) Body mass index is 37.42 kg/m. Physical Exam: General: The patient is alert and oriented. No acute distress. Eyes: Conjunctiva clear. Sclera anicteric. ENMT: Oropharynx fee of lesions, mucous membranes moist. Cardiovascular: Regular rate and rhythm, no rubs, gallops, or murmurs. Lungs: Clear to auscultation and percussion. Extremities: Nontender, no erythema, no edema. Skin: No rashes, bruising, or petechiae. Neurological: Cranial nerves are intact. Patient walks with a limp. Muscular/Skeletal: No acute bony tenderness. No evidence of sarcopenia. Psychiatric: Normal mood and affect. ECOG Performance Status [x] 0 [] 1 [] 2 []3 [] 4 ECOG PERFORMANCE STATUS* Grade ECOG Karnofsky 0 Fully active, able to carry on all pre-disease performance without restriction. 90 - 100 1 Restricted in physically strenuous activity but ambulatory and able to carry out work of a light or sedentary nature, e.g., light house work, office work 70 - 80 2 Ambulatory and capable of all selfcare but unable to carry out any work activ ities. Up and about more than 50% of waking hours 50 - 60 3 Capable of only limited selfcare, confined to bed or chair more than 50% of w aking hours 30 - 40 4 Completely disabled. Cannot carry on any selfcare. Totally confined to bed or chair 10 - 20 * As published in Am. J. Clin. Oncol.: Nadia Harley., Diane Randolph., Kathleen Rinaldi., Mateo Proctor, Pauline Rose., Stephanie Rios., [place], P .P.: Toxicity And Response Criteria Of The Eastern Cooperative Oncology Group. Am J Clin Onc ol 5:649-655, 1982. The ECOG Performance Status is in the public domain therefore available for public use. To duplicate the scale, please cite the reference above and credit the Eastern Cooperative Onco logy Group, Luke Hickey M.D., Group Chair Diagnostic studies: Available data and images were reviewed personally. See reports. Significant results and findings are addressed here or in the Assessment and Plan. Results for DESIRE GARRETT ( ) as of 02/28/2018 11:37 Ref. Range 02/22/2018 10:37 WBC Latest Ref Range: 4.0 - 11.0 K/uL 6.1 RBC COUNT Latest Ref Range: 3.70 - 5.20 M/uL 4.45 Hgb Latest Ref Range: 11.5 - 16.0 g/dL 13.2 Hct, Final Latest Ref Range: 34.0 - 47.0 % 40.3 MCV Latest Ref Range: 83.0 - 101.0 fL 90.6 MCH Latest Ref Range: 28.0 - 35.0 pg 29.7 MCHC Latest Ref Range: 32.0 - 36.0 g/dL 32.8 RDW-SD Latest Ref Range: 35.1 - 46.3 fL 40.6 RDW-CV Latest Ref Range: <15.0 % 12.3 Platelet Count Latest Ref Range: 140 - 440 K/uL 268 MPV Latest Ref Range: 6.5 - 12.4 fL 8.6 Absolute Neutrophils Latest Ref Range: 1.80 - 8.50 K/uL 4.04 Absolute Lymphocytes Latest Ref Range: 0.60 - 3.20 K/uL 1.46 Absolute Monocytes Latest Ref Range: 0.00 - 1.00 K/uL 0.33 Absolute Eosinophils Latest Ref Range: 0.00 - 0.40 K/uL 0.27 Absolute Basophils Latest Ref Range: 0.00 - 0.10 K/uL 0.02 % Neutrophils Latest Ref Range: 45.0 - 82.0 % 65.8 % Lymphocytes Latest Ref Range: 20.0 - 45.0 % 23.8 % Monocytes Latest Ref Range: 4.0 - 12.0 % 5.4 % Eosinophils Latest Ref Range: 0.0 - 5.0 % 4.4 % Basophils Latest Ref Range: 0.0 - 1.0 % 0.3 % Immature granulocytes Latest Ref Range: 0.0 - 0.4 % 0.3 Absolute Imm. Granulocytes Latest Ref Range: 0.00 - 0.03 K/uL 0.02 NRBC Latest Ref Range: 0 - 2 per 100 WBC's 0 Na Latest Ref Range: 136 - 149 mmol/L 134 (L) K Latest Ref Range: 3.5 - 5.1 mmol/L 3.8 Chloride Latest Ref Range: 98 - 109 mmol/L 101 Carbon dioxide Latest Ref Range: 24 - 31 mmol/L 25 Anion Gap Latest Ref Range: 3 - 16 mmol/L 8 Glucose Latest Ref Range: 70 - 109 mg/dL 229 (H) BUN Latest Ref Range: 7 - 18 mg/dL 7 Creatinine Latest Ref Range: 0.60 - 1.30 mg/dL 0.37 (L) BUN/Creatinine Ratio Unknown 18.9 Albumin Latest Ref Range: 3.2 - 5.0 g/dL 3.4 Albumin/Globulin Ratio Latest Ref Range: 0.8 - 2.0 1.1 Total Protein Latest Ref Range: 6.0 - 7.8 g/dL 6.4 EGFR IF NOT Latest Ref Range: >=60 mL/min/1.73m2 >60 Calcium Latest Ref Range: 8.3 - 10.5 mg/dL 8.8 ALK PHOS Latest Ref Range: 40 - 110 U/L 83 ALT (SGPT) (REF) Latest Ref Range: 6 - 45 U/L 19 AST (SGOT) (REF) Latest Ref Range: 10 - 42 U/L 23 LDH TOTAL Latest Ref Range: 91 - 180 U/L 112 Bilirubin Total (Calculated) Latest Ref Range: 0.1 - 1.5 mg/dL 0.4 Globulin Latest Ref Range: 2.1 - 3.8 g/dL 3.0 FERRITIN Latest Ref Range: 11 - 307 ng/mL 16 Iron Latest Ref Range: 40 - 150 ug/dL 66 TIBC Latest Ref Range: 235 - 425 ug/dL 367 % SATURATION Latest Ref Range: 20.0 - 55.0 % 18.0 (L) Transferrin Latest Ref Range: 240.0 - 480.0 mg/dL 262.3 NRBC ABS Latest Ref Range: 0.00 - 0.01 K/uL 0.00 Pharmacovigilance: Palliative Care: Procedure: Lkue Li MD Portions of this chart may have been created with [employer] recognition software. Occasi onal wrong-word or sound-alike substitutions may have occurred due to the inherent yin itations of voice recognition software. Please read the chart carefully and recognize, using context, where these substitutions have occurred. in this encounter Plan of Treatment +--------+ + + + + | Date | Type | Specialty | Care Team | Description | +--------+ + + + + | 08/05/ | Office | Cardiology | Kev Dumont | | | 2018 | Visit | | MD Noe [address] | | | | | | [address] | | | | | | [place] [address] | | | | | | [phone] | | | | | | | | +--------+ + + + + | 02/24/ | Appointment | Oncology | [place], | | | 2018 | | | Luke Antony MD [address] | | | | | | [address] [place] | | | | | | [place] [address] | | | | | | [phone] | | | | | | | | +--------+ + + + + + +--------+ + + | Name | Priori | Associated Diagnoses | Order Schedule | | | ty | | | + +--------+ + + | CBC w/ Auto Differential | STAT | Iron deficiency | 1 Occurrences | | | | anemia due to | starting 02/22/2018 | | | | chronic blood loss | until 02/22/2019 | + +--------+ + + | Comprehensive Metabolic Panel | STAT | Iron deficiency | 1 Occurrences | | | | anemia due to | starting 02/22/2018 | | | | chronic blood loss | until 02/22/2019 | + +--------+ + + | Lactate Dehydrogenase | STAT | Iron deficiency | 1 Occurrences | | | | anemia due to | starting 02/22/2018 | | | | chronic blood loss | until 02/23/2019 | + +--------+ + + | Iron and Transferrin | STAT | Iron deficiency | 1 Occurrences | | | | anemia due to | starting 02/22/2018 | | | | chronic blood loss | until 02/22/2019 | + +--------+ + + | Ferritin | STAT | Iron deficiency | 1 Occurrences | | | | anemia due to | starting 02/22/2018 | | | | chronic blood loss | until 02/22/2019 | + +--------+ + + as of this encounter Procedures + +--------+ + + + | Procedure Name | Priori | Date/Time | Associated Diagnosis | Comments | | | ty | | | | + +--------+ + + + | CBC W/AUTO | STAT | 02/22/2018 | Iron deficiency | Results for this | | DIFFERENTIAL | | 1037 PST | anemia following | procedure are in the | | | | | bariatric surgery | results section. | | | | | Iron deficiency | | | | | | anemia due to | | | | | | chronic blood loss | | + +--------+ + + + | IRON AND TRANSFERRIN | STAT | 02/22/2018 | Iron deficiency | Results for this | | | | 1037 PST | anemia following | procedure are in the | | | | | bariatric surgery | results section. | | | | | Iron deficiency | | | | | | anemia due to | | | | | | chronic blood loss | | + +--------+ + + + | LACTATE | STAT | 02/22/2018 | Iron deficiency | Results for this | | DEHYDROGENASE | | 1037 PST | anemia following | procedure are in the | | | | | bariatric surgery | results section. | | | | | Iron deficiency | | | | | | anemia due to | | | | | | chronic blood loss | | + +--------+ + + + | FERRITIN | STAT | 02/22/2018 | Iron deficiency | Results for this | | | | 1037 PST | anemia following | procedure are in the | | | | | bariatric surgery | results section. | | | | | Iron deficiency | | | | | | anemia due to | | | | | | chronic blood loss | | + +--------+ + + + | COMPREHENSIVE | STAT | 02/22/2018 | Iron deficiency | Results for this | | METABOLIC PANEL | | 1037 PST | anemia following | procedure are in the | | | | | bariatric surgery | results section. | | | | | Iron deficiency | | | | | | anemia due to | | | | | | chronic blood loss | | + +--------+ + + + in this encounter Results CBC w/ Auto Differential (02/22/2018 1037) + + + + + | Component | Value | Ref Range | Performed At | + + + + + | WBC | 6.1 | 4.0 - 11.0 K/uL | [facility] | | [facility] - | | | | | [facility] | + + + + + | RBC | 4.45 | 3.70 - 5.20 M/uL | [facility] | | [facility] - | | | | | [facility] | + + + + + | Hemoglobin | 13.2 | 11.5 - 16.0 g/dL | [facility] | | | | | [facility] | | | | | [facility] - | | | | | [facility]ORY | + + + + + | Hematocrit | 40.3 | 34.0 - 47.0 % | [facility] | | | | [facility] | | | | | [facility] - | | | | | [facility]ORY | + + + + + | MCV | 90.6 | 83.0 - 101.0 fL | [facility] | | [facility] | | | [facility] - | | | | | [facility] | + + + + + | MCH | 29.7 | 28.0 - 35.0 pg | [facility] | | [facility] | | | [facility] - | | | | | [facility]ORY | + + + + + | MCHC | 32.8 | 32.0 - 36.0 g/dL | [facility] [...] + + + + | RDW-SD | 40.6 | 35.1 - 46.3 fL | [facility] | | [facility] | | | [facility] - | | | | | [facility] | + + + + + | Platelet Count | 268 | 140 - 440 K/uL | [facility] | [facility] | | | [facility] - | | | | | [facility] | + + + + + | MPV | 8.6 | 6.5 - 12.4 fL | [facility] | | | | [facility] | | | | [facility] - | | | | | [facility] | + + + + + | % Neutrophils | 65.8 | 45.0 - 82.0 % | [facility] | | | | | [facility] | | | | | [facility] - | | | | | [facility]ORY | + + + + + | % Lymphocytes | 23.8 | 20.0 - 45.0 % | [facility] | | | | | [facility] | | | | | [facility] - | | | | | [facility]ORY | + + + + + | % Monocytes | 5.4 | 4.0 - 12.0 % | [facility] | | | | | [facility] | | | | | [facility] - | | | | | [facility]ORY | + + + + + | % Eosinophils | 4.4 | 0.0 - 5.0 % | [facility] | | | | | [facility] | | | | | [facility] - | | | | | [facility]ORY | + + + + + | % Basophils | 0.3 | 0.0 - 1.0 % | [facility] | | | | | [facility] | | | | | [facility] - | | | | | LAB[facility]ATORY | + + + + + | % Immature | 0.3Comment: For | 0.0 - 0.4 % | [facility] | | Granulocytes | patients, use the | | [facility] | | | special reference ranges | | [facility]ENTER - | | | listed below. | | LABORATORY | + + + + + | Absolute Neutrophils | 4.04 | 1.80 - 8.50 K/uL | [facility] | | | | | [facility] | | | | | [facility] - | | | | | LAB[facility]ATORY | + + + + + | Absolute Lymphocytes | 1.46 | 0.60 - 3.20 K/uL | [facility] | | | | | [facility] | | | | | [facility] - | | | | | LAB[facility]ATORY | + + + + + | Absolute Monocytes | 0.33 | 0.00 - 1.00 K/uL | [facility] | | | | | [facility] | | | | | [facility] - | | | | | LAB[facility]ATORY | + + + + + | Absolute Eosinophils | 0.27 | 0.00 - 0.40 K/uL | [facility] [...] + + + | Absolute Immature | 0.02Comment: For | 0.00 - 0.03 K/uL | [...] 0.00 | 0.00 - 0.01 K/uL | [facility] | | | | | [facility] | | | | | CENTER - [...] ranges: Trim. Absolute (K/uL) Percentage (%) | [facility] | | 1st 0.003-0.091 K/uL 0.0-0.9% 2nd 0.007-0.247 K/uL | MEDICAL [facility]ENTER | | 0.1-2.0% 3rd 0.018-0.456 K/uL 0.1-2.0% | - LABORATORY | + + + + + + + + | Performing | Address | City/State/Zipcode | Phone Number | | Organization | | | | + + + + + | [facility] | [address] | [place], [place] | [phone] | | [facility] | | [address] | | | - LABORATORY | | | | + + + + + | [facility] | [address] | [place], [place] | | | [facility] | | [address] | | | - LABORATORY | | | | + + + + + Comprehensive Metabolic Panel (02/22/2018 1037) + + + + + | Component | Value | Ref Range | Performed At | + + + + + | Na | 134 (L) | 136 - 149 mmol/L | [facility] | | | | | [facility] - | | | | | LAB[facility]ATORY | + + + + + | K | 3.8 | 3.5 - 5.1 mmol/L | [facility] | | | | | [facility] | | | | | [facility] - | | | | | LABORATORY | + + + + + | Cl | 101 | 98 - 109 mmol/L | [facility] | | | | | [facility] | | | | | [facility] - | | | | | LAB[facility]ATORY | + + + + + | CO2 | 25 | 24 - 31 mmol/L | [facility] | | | | | [facility] | | | | | [facility] - | | | | | LABORATORY | + + + + + | Anion Gap | 8 | 3 - 16 mmol/L | [facility] | | | | | [facility] | | | | | [facility] - | | | | | LABORATORY | + + + + + | Glucose | 229 (H) | 70 - 109 mg/dL | [facility] | | | | | [facility] | | | | | [facility] - | | | | | LABORATORY | + + + + + | BUN | 7 | 7 - 18 mg/dL | [facility] | | | | [facility] | | | | | CENTER - | | | | | LABORATORY | + + + + + | Creatinine | 0.37 (L) | 0.60 - 1.30 mg/dL | [facility] | | | | | [facility] | | | | | CENTER - | | | | | LABORATORY | + + + + + | eGFR if not | >60Comment: GLOMERULAR | >=60 mL/min/1.73m2 | [facility] | | UZBEK | FILTRATION | | [facility] | | | RATE,ESTIMATED mL/min | | CENTER - | | | /1.33q5Zobq than 60 | | LABORATORY | | [...] + + + + | Ca | 8.8 | 8.3 - 10.5 mg/dL | [facility] | | | | | [facility] | | | | | [facility] - | | | | | LAB[facility]ATORY | + + + + + | Albumin | 3.4 | 3.2 - 5.0 g/dL | [facility] | | | | | [facility] | | | | | [facility] - | | | | | LABORATORY | + + + + + | Bilirubin Total | 0.4Comment: This is an | 0.1 - 1.5 mg/dL | [facility] | | | appended report. These | | [facility] | | | results have been | | CENTER - | | | appended to a previously | | LABORATORY | | | preliminary verified | | | | | report. | | | + + + + + | Total Protein | 6.4 | 6.0 - 7.8 g/dL | [facility] | | | | | [facility] | | | | | [facility] - | | | | | LABORATORY | + + + + + | AST | 23Comment: This is an | 10 - 42 U/L | [facility] | | | appended report. These | | [facility] | | | results have been | | CENTER - | | | appended to a previously | | LABORATORY | | | preliminary verified | | | | | report. | | | + + + + + | ALT | 19Comment: This is an | 6 - 45 [...] + + + | Alkaline Phosphatase | 83Comment: This is an | 40 - 110 U/L | [facility] | | | appended report. These | | [facility] | | | results have been | | CENTER - | | | appended to a previously | | LABORATORY | | | preliminary verified | | | | | report. | | | + + + + + | Globulin | 3.0 | 2.1 - 3.8 g/dL | [facility] | | | | | [facility] | | | | | [facility] - | | | | | LABORATORY | + + + + + | Albumin/Globulin | 1.1 | 0.8 - 2.0 | [facility] | | Ratio | | | [facility] | | | | | CENTER - | | | | | LABORATORY | + + + + + | BUN/Creatinine Ratio | 18.9 | | [facility] | | | [...] + | [facility] | [address] | [place] | [phone] | | [facility] | | [address] | | | - LABORATORY | | | | + + + + + | [facility] | [address] | [place] | | | [facility] | | [address] | | | - LABORATORY | | | | + + + + + Ferritin (02/22/2018 1037) + +-------+ + + | Component | Value | Ref Range | Performed At | + +-------+ + + | FERRITIN | 16 | 11 - 307 ng/mL | [facility] | | | | | [facility] | | | | | CENTER - | | | | | LABORATORY | + +-------+ + + + + | Specimen | + + | Blood | + + + + + + + | Performing | Address | City/State/Zipcode | Phone Number | | Organization | | | | + + + + + | [facility] | [address] | [place] | [phone] | | [facility] | | [id number] | | | - LABORATORY | | | | + + + + + | [facility] | [address] | [place], [place] | | | [facility] | | [address] | | | - LABORATORY | | | | + + + + + Iron and Transferrin (02/22/2018 1037) + + + + + | Component | Value | Ref Range | Performed At | + + + + + | Iron | 66 | 40 - 150 ug/dL | [facility] | | | | | [facility] | | | | | CENTER - | | | | | LABORATORY | + + + + + | TRANSFERRIN | 262.3 | 240.0 - 480.0 mg/dL | [facility] | | | | | [facility] | | | | | CENTER - | | | | | LABORATORY | + + + + + | TIBC | 367 | 235 - 425 ug/dL | [facility] | | | | | [facility] | | | | | CENTER - | | | | | LABORATORY | + + + + + | % SATURATION | 18.0 (L) | 20.0 - 55.0 % | [facility] | | | [...] + | [facility] | [address] | [place] | [phone] | | [facility] | | [address] | | | - LABORATORY | | | | + + + + + | [facility] | [address] | [place] | | | [facility] | | [address] | | | - LABORATORY | | | | + + + + + Lactate Dehydrogenase (02/22/2018 1037) + +-------+ + + | Component | Value | Ref Range | Performed At | + +-------+ + + | LDH TOTAL | 112 | 91 - 180 U/L | [facility] | | | | | [facility] | | | | | CENTER - | | | | | LABORATORY | + +-------+ + + + + | Specimen | + + | Blood | + + + + + + + | Performing | Address | City/State/Zipcode | Phone Number | | Organization | | | | + + + + + | [facility] | [address] | [place] | [phone] | | [facility] | | [address] | | | - LABORATORY | | | | + + + + + | [facility] | 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
--- OUTSIDE RECORDS SUMMARY | ~2018-05-17 | XMS | Encounter Summary ---
Demographics + + + | Address | [address] | | | [place] [address] | + + + | Home Phone | | + + + | Preferred Language | Unknown | + + + | Marital Status | Legally | + + + | Temple Affiliation | 1025 | + + + | Race | Unknown | + + + | Ethnic Group | Unknown | + + + Author + + + | Author | [facility] | | | and [place] | + + + | Organization | [facility] | | | and [place] | + + + | Address | Unknown | + + + | Phone | Unavailable | + + + Support + + + + + | Name | Relationship | Address | Phone | + + + + + | Mar Ahmadi | ECON | NA | | | | | [place] [address] | | + + + + + | Magdaleno Vásquez | ECON | [address] | | | o | | [place] | | | | | [address] | | + + + + + Care Team Providers + +------+ + | Care Photogrammetric Engineer Name | Role | Phone | + +------+ + | Barbara Hill MD | PCP | | + +------+ + Reason for Referral Evaluate & Treat (Routine) + + + + + + + | Status | Reason | Specialty | Diagnoses / | Referred By | Referred To | | | | | Procedures | Contact | Contact | + + + + + + + | Authorized | Specialty | Cardiology | Diagnoses | Chanelle, | Irvin, | | | Services | | Chest pain, | Arnel | MD Fuentes | | | Required | | unspecified | MD Luke | [address] | | | | | type ER | [address] | [address] | | | | | F[address] | [place] | [place], | | | | | Procedures | [place], [place] | [place] [address] | | | | | [employer] | [address] | Phone: | | | | | | Phone: | [phone] | | | | | | [phone] | Fax: | | | | | | Fax: | [phone] | | | | | | [phone] | | + + + + + + + Reason for Visit + + + | Reason | Comments | + + + | Chest Pain | | + + + Encounter Details +--------+ + + + + | Date | Type | Department | Care Team | Description | +--------+ + + + + | 02/23/ | Emergency | [facility] | Arnel Roca | Chest pain, | | 2018 - | | [facility] | MD Luke [address] | unspecified type | | | | [place] [address] | [address] [facility] | (Primary Dx) | | 02/24/ | | [address] | [place] [address] | | | 2017 | | [address] | [phone] | | | | | [phone] | | | +--------+ + + + [...] + + + | Blood Pressure | 132/72 | 02/24/2018158 PST | + + + + | Pulse | 108 | 02/24/2018158 PST | + + + + | Temperature | 37.4 C (99.3 F) | 02/23/20182210 PST | + + + + | Respiratory Rate | 24 | 02/24/2018158 PST | + + + + | Oxygen Saturation | 96% | 02/24/2018158 PST | + + + + | Inhaled Oxygen | - | - | | Concentration | | | + + + + | Weight | 92.5 kg (204 lb) | 02/23/20182201 PST | + + + + | Height | - | - | + + + + | Body Mass Index | 37.31 | 02/23/20182201 PST | + + + + in this encounter Discharge Instructions The following attachments cannot be sent through Care Everywhere.Chest Pain, Uncertain Caus e (Nepali)in this encounter Medications at Time of Discharge [...] [address] | | | | | | [address] [place] | | | | | | [place] [address] | | | | | | [phone] | | | | | | | | +--------+ + + + + | 02/24/ | Appointment | Oncology | Guillermo, | | | 2018 | | | Luke Antony MD [address] | | | | | [address] [place] | | | | | | [place] [address] | | | | | | [phone] | | | | | | | | +--------+ + + + + + +--------+ + + | Name | Priori | Associated Diagnoses | Order Schedule | | | ty | | | + +--------+ + + | Cardiology [facility] | Routin | Chest pain, | Ordered: 02/24/2018 | | | e | unspecified type | | + +--------+ + + as of this encounter Procedures + +--------+ + + + | Procedure Name | Priori | Date/Time | Associated Diagnosis | Comments | | | ty | | | | + +--------+ + + + | TROPONIN I | STAT | 02/24/2018 | | Results for this | | | | 0100 PST | | procedure are in the | | | | | | results section. | + +--------+ + + + | ECG 12 LEAD | STAT | 02/24/2018 | | Results for this | | | | 0049 PST | | procedure are in the | | | | | | results section. | + +--------+ + + + | CT ANGIOGRAM | STAT | 02/23/2018 | | Results for this | | PULMONARY | | 2327 PST | | procedure are in the | | | | | | results section. | + +--------+ + + + | INFLUENZA A AND B | STAT | 02/23/2018 | | Results for this | | RNA, NAAT | | 2246 PST | | procedure are in the | | | | | | results section. | + +--------+ + + + | TROPONIN I | Routin | 02/23/2018 | | Results for this | | | e | 2221 PST | | procedure are in the | | | | | | results section. | + +--------+ + + + | CBC WITH | STAT | 02/23/2018 | | Results for this | | DIFFERENTIAL | | 2221 PST | | procedure are in the | | | | | | results section. | + +--------+ + + + | , SERUM, | STAT | 02/23/2018 | | Results for this | | QUAL | | 2221 PST | | procedure are in the | | | | | | results section. | + +--------+ + + + | B TYPE NATRIURETIC | STAT | 02/23/2018 | | Results for this | | PEPTIDE | | 2221 PST | | procedure are in the | | | | | | results section. | + +--------+ + + + | COMPREHENSIVE | STAT | 02/23/2018 | | Results for this | | METABOLIC PANEL | | 2221 PST | | procedure are in the | | | | | | results section. | + +--------+ + + + | XR CHEST AP PORTABLE | STAT | 02/23/2018 | | Results for this | | | | 2219 PST | | procedure are in the | | | | | | results section. | + +--------+ + + + | ECG 12 LEAD | STAT | 02/23/2018 | | Results for this | | | | 2204 PST | | procedure are in the | | | | | | results section. | + +--------+ + + + in this encounter Results Troponin I (02/24/2018 0100) + + + + + | Component | Value | Ref Range | Performed At | + + + + + | Troponin I | <0.01Comment: Reference | <0.06 ng/mL | [facility] | | | Ranges:0.00-0.06 = | | [facility] | | | NORMAL>0.06 = | | CENTER - | | | SUSPICIOUS FOR | | LABORATORY | | | MYOCARDIAL DAMAGE NOTE: | | | | | Values greater than 0.50 | | | | | ng/mL have been shown | | | | | to be strongly | | | | | associated with acute | | | | | myocardial infarction. | | | | | The [employer] | | | | | Cardiology (ACC) | | | | | recommends a decision | | | | | limit of 0.06 ng/mL for | | | | | this assay. Results | | | | | greater than 0.06 can | | | | | reflect a pre-infarct | | | | | acute coronary syndrome, | | | | | but can also reflect | | | | | myocardial necrosis or | | | | | injury that is not due | | | | | to coronary artery | | | | | disease. Some of | | | | | these causes are sepsis, | | | | | hypocolemia, atrial | | | | | fibrillation, heart | | | | | failure, pulmonary | | | | | embolism, myocarditis, | | | | | myocardial contusion, | | | | | and renal | | | | | failure. The | | | | | diagnosis of myocardial | | | | | infarction should be | | | | | based on a combination | | | | | of the patient's | | | | | clinical presentation | | | | | and the clinical | | | | | laboratory test results | | | | | (especially serial | | | | | troponin levels). | | | + + + + + + + | Specimen | + + | Blood | + + + + + + + | Performing | Address | City/State[facility] | Phone Number | | Organization | | | | + + + + + | [facility] | [address] | [place] | [phone] | | [facility] | | [address] | | | - LABORATORY | | | | + + + + + | [facility] | [address] | [place], [place] | | | [facility] | | [address] | | | - LABORATORY | | | | + + + + + ECG 12 lead (02/24/2018 0049) + + + + + | Component | Value | Ref Range | Performed At | + + + + + | VENTRICULAR RATE EKG | 103 | BPM | [facility] | + + + + + | ATRIAL RATE | 103 | BPM | [facility] | + + + + + | P-R INTERVAL | 154 | ms | [facility] | + + + + + | QRS DURATION | 98 | ms | [facility] | + + + + + | Q-T INTERVAL | 382 | ms | [facility] | + + + + + | Q-T INTERVAL | 500 | ms | [facility] | | (CORRECTED) | | | | + + + + + | P WAVE AXIS | 66 | degrees | [facility] | + + + + + | QRS AXIS | 20 | degrees | [facility] | + + + + + | T AXIS | 76 | degrees | [facility] | + + + + + | INTERPRETATION TEXT | Sinus tachycardiaLong | | [facility] | | | QTcWhen compared with | | | | | ECG of 23-FEB-2018 | | | | | 22:04, (Unconfirmed)T | | | | | wave amplitude has | | | | | decreased in leads I and | | | | | aVL though direct | | | | | comparison is difficult | | | | | secondary to poor data | | | | | quality of | | | | | priorConfirmed by | | | | | GILA PIERRE, SAGAR ([id number]) | | | | | on 02/24/2018 7:40:48 AM | | | + + + + + + + + | Narrative | Performed At | + + + | | | + + + + +---------+ + + | Performing | Address | City/State/Zipcode | Phone Number | | Organization | | | | + +---------+ + + | [facility] | | | | + +---------+ + + CT Angiogram Pulmonary (02/23/2018 2327) + + + | Narrative | Performed At | + + + | CT ANGIOGRAM PULMONARY CLINICAL INFORMATION: Left sided | [facility] | | chest pain. COMPARISON: XR CHEST AP PORTABLE (02/23/2018); | | | PROCEDURE: Thin-section images of the entire chest after the | | | administration of 90 ml Omnipaque 350 intravenous contrast. 3D MIP | | | thin slab images and 2D multiplanar reconstructions performed. At | | | least one of the following CT dose optimization techniques were | | | used: Automated exposure control; Adjustment of mA and/or kV according | | | to patient size; Use of iterative reconstruction technique. | | | FINDINGS: PULMONARY ARTERIES: No pulmonary embolism. RIGHT | | | VENTRICLE TO LEFT VENTRICLE RATIO: Not applicable. (Maximum short | | | axis diameter on axial image. Applicable only when pulmonary embolism | | | present. Abnormal greater than or equal to 0.9.) CHEST Lungs, | | | Pleura and Airways: No significant pulmonary abnormality. No airway | | | narrowing or obstruction. No pleural effusion or pneumothorax. | | | Mediastinum: No significant pericardial, great vessel or esophageal | | | abnormality. No mediastinal mass. Lymph Nodes: No adenopathy. Upper | | | Abdomen: No significant abnormality in the visualized upper abdomen. | | | Anastomotic suture is noted in the left upper quadrant. BODY WALL | | | Soft Tissues: The soft tissues of the chest wall are unremarkable. | | | Bones: No acute fracture or vertebral end plate destruction. No lytic | | | or blastic lesion. IMPRESSION- No pulmonary embolism or other | | | acute cardiopulmonary findings. Essentially normal CT of the | | | chest. A preliminary report was sent without significant | | | discrepancy. Dictated and Signed by: Hill Uriostegui MD | | | Electronically signed: 02/24/2018 9:18 AM | | + + + + + | Procedure Note | + + | Humza, Rad Results In - 02/24/2018 0921 PST | | CT ANGIOGRAM PULMONARY | | | | CLINICAL INFORMATION: | | Left sided chest pain. | | | | COMPARISON: | | XR CHEST AP PORTABLE (02/23/2018); | | | | PROCEDURE: | | Thin-section images of the entire chest after the administration of 90 | | ml Omnipaque 350 intravenous contrast. 3D MIP thin slab images and 2D | | multiplanar reconstructions performed. | | | | At least one of the following CT dose optimization techniques were | | used: Automated exposure control; Adjustment of mA and/or kV according | | to patient size; Use of iterative reconstruction technique. | | | | FINDINGS: | | PULMONARY ARTERIES: No pulmonary embolism. | | | | RIGHT VENTRICLE TO LEFT VENTRICLE RATIO: Not applicable. (Maximum short | | axis diameter on axial image. Applicable only when pulmonary embolism | | present. Abnormal greater than or equal to 0.9.) | | | | CHEST | | Lungs, Pleura and Airways: No significant pulmonary abnormality. No | | airway narrowing or obstruction. No pleural effusion or pneumothorax. | | Mediastinum: No significant pericardial, great vessel or esophageal | | abnormality. No mediastinal mass. | | Lymph Nodes: No adenopathy. | | Upper Abdomen: No significant abnormality in the visualized upper | | abdomen. Anastomotic suture is noted in the left upper quadrant. | | | | BODY WALL | | Soft Tissues: The soft tissues of the chest wall are unremarkable. | | Bones: No acute fracture or vertebral end plate destruction. No lytic | | or blastic lesion. | | | | IMPRESSION- | | No pulmonary embolism or other acute cardiopulmonary findings. | | | | Essentially normal CT of the chest. | | | | | | | | A preliminary report was sent without significant discrepancy. | | | | Dictated and Signed by: Hill Uriostegui MD | | Electronically signed: 02/24/2018 9:18 AM | + + + +---------+ + + | Performing | Address | City/State/Zipcode | Phone Number | | Organization | | | | + +---------+ + + | [facility] | | | | + +---------+ + + Influenza A and B RNA, NAAT (02/23/2018 2246) + + + + + | Component | Value | Ref Range | Performed At | + + + + + | Influenza A PCR | Negative | Negative | [facility] | | | | | [facility] | | | | | CENTER - | | | | | LABORATORY | + + + + + | Influenza B PCR | Negative | Negative | [facility] | | | | | [facility] | | | | | CENTER - | | | | | LABORATORY | + + + + + + + | Specimen | + + | Tissue - Nasopharynx | + + + + + + + | Performing | Address | City/State/Zipcode | Phone Number | | Organization | | | | + + + + + | [facility] | [address] | [place], [place] | [phone] | | [facility] | | [address] | | | - LABORATORY | | | | + + + + + | [facility] | [address] | [place], [place] | | | [facility] | | [address] | | | - LABORATORY | | | | + + + + + , Serum, Qual (02/23/20182220) + + + + + | Component | Value | Ref Range | Performed At | + + + + + | hCG Screen, Serum | Negative | Negative | [facility] | | | | | [facility] | | | | | CENTER [...] [address] | [place] | [phone] | | [facility] | | [address] | | | - LABORATORY | | | | + + + + + | [facility] | [address] | [place] | | | [facility] | | [address] | | | - LABORATORY | | | | + + + + + B Type Natriuretic Peptide (02/23/20182220) + +-------+ + + | Component | Value | Ref Range | Performed At | + +-------+ + + | BNP | 20 | <100 pg/mL | [facility] | | | | | [facility] | | | | | CENTER - | | | | | LABORATORY | + +-------+ + + + + | Specimen | + + | Blood | + + + + + + + | Performing | Address | City/State/Zipcode | Phone Number | | Organization | | | | + + + + + | [facility] | [address] | [place], [place] | [phone] | | [facility] | | [address] | | | - LABORATORY | | | | + + + + + | [facility] | [address] | [place], [place] | | | [facility] | | [address] | | | - LABORATORY | | | | + + + + + Troponin I (02/23/20182220) + +-------+ + + | Component | Value | Ref Range | Performed At | + +-------+ + + | Troponin I | <0.01 | <0.06 ng/mL | [facility] | | | | | [facility] | | | | | CENTER - | | | | | LABORATORY | + +-------+ + + + + | Specimen | + + | Blood | + + + + + + + | Performing | Address | City/State/Zipcode | Phone Number | | Organization | | | | + + + + + | [facility] | [address] | [place] | [phone] | | [facility] | | [address] | | | - LABORATORY | | | | + + + + + | [facility] | [address] | [place] | | | [facility] | | [address] | | | - LABORATORY | | | | + + + + + Comprehensive Metabolic Panel (02/23/20181) + + + + + | Component | Value | Ref Range | Performed At | + + + + + | Na | 135 (L) | 136 - 149 mmol/L | [facility] | | | | | [facility] | | | | | CENTER - | | | | | LABORATORY | + + + + + | K | 3.4 (L) | 3.5 - 5.1 mmol/L | [facility] | | | | | [facility] | | | | | CENTER - | | | | | LABORATORY | + + + + + | Cl | 102 | 98 - 109 mmol/L | [facility] [...] + + + + | Glucose | 155 (H) | 70 - 109 mg/dL | [facility] | | | | | [facility] | | | | | CENTER - | | | | | LABORATORY | + + + + + | BUN | 8 | 7 - 18 mg/dL | [facility] | | | | | [facility] | | | | | CENTER - | | | | | LABORATORY | + + + + + | Creatinine | 0.34 (L) | 0.60 - 1.30 mg/dL | [facility] | | | | | [facility] | | | | | CENTER - | | | | | LABORATORY | + + + + + | eGFR if not | >60Comment: GLOMERULAR | >=60 mL/min/1.73m2 | [facility] | | [place] | FILTRATION | | [facility] | | | RATE,ESTIMATED mL/min | | CENTER - | | | /1.66n3Aklw than 60 | | LABORATORY | | [...] + + + + | Ca | 9.0 | 8.3 - 10.5 mg/dL | [facility] | | | | | [facility] | | | | | CENTER - | | | | | LABORATORY | + + + + + | Albumin | 3.8 | 3.2 - 5.0 g/dL | [facility] | | | | | [facility] | | | | | CENTER - | | | | | LABORATORY | + + + + + | Bilirubin Total | 0.5Comment: This is an | 0.1 - 1.5 mg/dL | [facility] | | | appended report. These | | [facility] | | | results have been | | CENTER - | | | appended to a previously | | LABORATORY | | | preliminary verified | | | | | report. | | | + + + + + | Total Protein | 7.1 | 6.0 - 7.8 g/dL | [facility] | | | | | [facility] | | | | | CENTER - | | | | | LABORATORY | + + + + + | AST | 24Comment: This is an | 10 - 42 U/L | [facility] | | | appended report. These | | [facility] | | | results have been | | CENTER - | | | appended to a previously | | LABORATORY | | | preliminary verified | | | | | report. | | | + + + + + | ALT | 20Comment: This is an | 6 - 45 [...] + + + | Alkaline Phosphatase | 95Comment: This is an | 40 - 110 U/L | [facility] | | | appended report. These | | [facility] | | | results have been | | CENTER - | | | appended to a previously | | LABORATORY | | | preliminary verified | | | | | report. | | | + + + + + | Globulin | 3.3 | 2.1 - 3.8 g/dL | [facility] | | | | | [facility] | | | | | CENTER - | | | | | LABORATORY | + + + + + | Albumin/Globulin | 1.2 | 0.8 - 2.0 | [facility] | | Ratio | | | [facility] | | | | | CENTER - | | | | | LABORATORY | + + + + + | BUN/Creatinine Ratio | 23.5 | | [facility] | | | | | [facility] [...] | + + + + + | [facility] | [address] | [place] | [phone] | | [facility] | | [address] | | | - LABORATORY | | | | + + + + + | [facility] | [address] | [place] | | | [facility] | | [address] | | | - LABORATORY | | | | + + + + + CBC with Differential (02/23/20182220) + + + + + | Component | Value | Ref Range | Performed At | + + + + + | WBC | 8.0 | 4.0 - 11.0 K/uL | [facility] | | | | | [facility] | | | | | CENTER - | | | | | LABORATORY | + + + + + | RBC | 4.74 | 3.70 - 5.20 M/uL | [facility] [...] + + + + | Hematocrit | 43.1 | 34.0 - 47.0 % | [facility] | | | | | [facility] | | | | | CENTER - | | | | | LABORATORY | + + + + + | MCV | 90.9 | 83.0 - 101.0 fL | [facility] | | | | | [facility] | | | | | CENTER - | | | | | LABORATORY | + + + + + | MCH | 28.9 | 28.0 - 35.0 pg | [facility] | | | | | [facility] | | | | | CENTER - | | | | | LABORATORY | + + + + + | MCHC | 31.8 (L) | 32.0 - 36.0 g/dL | [facility] | | | | | [facility] | | | | | CENTER - | | | | | LABORATORY | + + + + + | RDW-CV | 12.4 | <15.0 % | [facility] | | | | | [facility] | | | | | CENTER - | | | | | LABORATORY | + + + + + | RDW-SD | 41.0 | 35.1 - 46.3 fL | [facility] | | | | | [facility] | | | | | CENTER - | | | | | LABORATORY | + + + + + | Platelet Count | 336 | 140 - 440 K/uL | [facility] | | | | | [facility] | | | | | CENTER - | | | | | LABORATORY | + + + + + | MPV | 9.1 | 6.5 - 12.4 fL | [facility] | | | | | [facility] | | | | | CENTER - | | | | | LABORATORY | + + + + + | % Neutrophils | 59.3 | 45.0 - 82.0 % | [facility] | | | | | [facility] | | | | | CENTER - | | | | | LABORATORY | + + + + + | % Lymphocytes | 30.2 | 20.0 - 45.0 % | [facility] | | | | | [facility] | | | | | CENTER - | | | | | LABORATORY | + + + + + | % Monocytes | 7.0 | 4.0 - 12.0 % | [facility] | | | | | [facility] | | | | | CENTER - | | | | | LABORATORY | + + + + + | % Eosinophils | 3.1 | 0.0 - 5.0 % | [facility] [...] + + + | % Immature | 0.2Comment: For | 0.0 - 0.4 % | [facility] | | Granulocytes | patients, use the | | [facility] | | | special reference ranges | | CENTER - | | | listed below. | | LABORATORY | + + + + + | Absolute Neutrophils | 4.74 | 1.80 - 8.50 K/uL | [facility] | | | | | [facility] | | | | | CENTER - | | | | | LABORATORY | + + + + + | Absolute Lymphocytes | 2.42 | 0.60 - 3.20 K/uL | [facility] | | | | | [facility] | | | | | CENTER - | | | | | LABORATORY | + + + + + | Absolute Monocytes | 0.56 | 0.00 - 1.00 K/uL | [facility] | | | | | [facility] | | | | | CENTER - | | | | | LABORATORY | + + + + + | Absolute Eosinophils | 0.25 | 0.00 - 0.40 K/uL | [facility] [...] ranges: Trim. Absolute (K/uL) Percentage (%) | [facility] | | 1st 0.003-0.091 K/uL 0.0-0.9% 2nd 0.007-0.247 K/uL | [facility] | | 0.1-2.0% 3rd 0.018-0.456 K/uL 0.1-2.0% | - LABORATORY | + + + + + + + + | Performing | Address | City/State/Zipcode | Phone Number | | Organization | | | | + + + + + | [facility] | [address] | [place] | [phone] | | [facility] | | [address] | | | - LABORATORY | | | | + + + + + | [facility] | [address] | [place] | | | [facility] | | [address] | | | - LABORATORY | | | | + + + + + XR Chest AP Portable (02/23/20182218) + + + | Narrative | Performed At | + + + | XR CHEST AP PORTABLE 02/23/2018 10:19 PM HISTORY: CHEST PAIN. | [facility] | | COMPARISON: Multiple priors. Findings: Heart size is within | | | normal limits. Aorta is normal. Mediastinum demonstrates no acute | | | findings. Central pulmonary vasculature is normal. The bilateral lungs | | | are clear with no evidence for pleural effusion or pneumothorax. | | | There is moderate spondylosis. IMPRESSION - No acute findings. | | | Dictated and Signed by: Alexander Fox MD Electronically signed: | | | 02/24/2018 8:40 AM | | + + + + + | Procedure Note | + + | Humza, Rad Results In - 02/24/2018 0843 PST XR CHEST AP PORTABLE 02/23/2018 10:19 PM | | | | HISTORY: CHEST PAIN. | | | | COMPARISON: Multiple priors. | | | | Findings: | | Heart size is within normal limits. Aorta is normal. Mediastinum demonstrates no | | acute findings. Central pulmonary vasculature is normal. The bilateral lungs are | | clear with no evidence for pleural effusion or pneumothorax. There is moderate | | spondylosis. | | | | IMPRESSION - | | No acute findings. | | | | Dictated and Signed by: Alexander Fox MD | | Electronically signed: 02/24/2018 8:40 AM | + + + +---------+ + + | Performing | Address | City/State/Zipcode | Phone Number | | Organization | | | | + +---------+ + + | [facility] | | | | + +---------+ + + ECG 12 lead (02/23/2018 2204) + + + + + | Component | Value | Ref Range | Performed At | + + + + + | VENTRICULAR RATE EKG | 100 | BPM | [facility] | + + + + + | ATRIAL RATE | 100 | BPM | [facility] | + + + + + | P-R INTERVAL | 152 | ms | [facility] | + + + + + | QRS DURATION | 88 | ms | [facility] | + + + + + | Q-T INTERVAL | 352 | ms | [facility] | + + + + + | Q-T INTERVAL | 454 | ms | [facility] | | (CORRECTED) | | | | + + + + + | P WAVE AXIS | 65 | degrees | [facility] | + + + + + | QRS AXIS | 31 | degrees | [facility] | + + + + + | T AXIS | 70 | degrees | [facility] | + + + + + | INTERPRETATION TEXT | Normal sinus | | [facility] | | | rhythmNormal ECGWhen | | | | | compared with ECG of | | | | | 09-NOV-2017 11:21,Vent. | | | | | rate has increased | | | | | BY 41 BPMConfirmed by | | | | | SAGAR URIOSTEGUI MD ([id number]) | | | | | on 02/24/2018 7:39:29 AM | | | | | | | | + + + + + + + + | Narrative | Performed At | + + + | | | + + + + +---------+ + + | Performing | Address | City/State/Zipcode | Phone Number | | Organization | | | | + +---------+ + + | [facility] | | | | + +---------+ + + in this encounter Visit Diagnoses + + | Diagnosis | + + | Chest pain, unspecified type - Primary | + + Administered Medications + +--------+ +--------+------+------+ | Medication Order | MAR | Action | Dose | Rate | Site | | | Action | Date | | | | + +--------+ +--------+------+------+ | aluminum & magnesium | Given | | 30 mLs | | | | hydroxide-simethicone (MAALOX | | 8 22:35 | | | | | PLUS REGULAR STRENGTH) 200-200-20 | | PST | | | | | mg/5 mL suspension 30 mL 30 mL, | | | | | | | Oral, ONCE, Thu02/23/18 at 2225, | | | | | | | For 1 dose, Mix lidocaine and | | | | | | | Maalox. Shake well. | | | | | | + +--------+ +--------+------+------+ +---+---+ | | | +---+---+ + +-------+ +-------+---+---+ | diphenhydrAMINE (BENADRYL) | Given | | 25 mg | | | | injection 25 mg 25 mg, | | 8 23:27 | | | | | Intravenous, ONCE, Thu02/23/18 at | | PST | | | | | 2255, For 1 dose | | | | | | + +-------+ +-------+---+---+ +---+---+ | | | +---+---+ + +-------+ +-------+---+---+ | famotidine (PEPCID) injection | Given | | 20 mg | | | | 20 mg 20 mg, Intravenous, ONCE, | | 8 22:35 | | | | | [facility] 02/23/18 at 2225, For 1 dose, | | PST | | | | | Dilute 2 mL of famotidine with 8 | | | | | | | mL of normal saline to a final | | | | | | | concentration of 2 mg/mL. | | | | | | | Administer ordered dose over a | | | | | | | period of at least 2 minutes. | | | | | | + +-------+ +-------+---+---+ +---+---+ | | | +---+---+ + +-------+ +--------+---+---+ | iohexol (OMNIPAQUE 350) 350 | Given | | 95 mLs | | | | mg/mL injection 95 mL 95 mL, | | 8 23:27 | | | | | Intravenous, ONCE PRN, Other, | | PST | | | | | Starting [facility] 02/23/18 at 2326, For | | | | | | | 1 dose, Cat Scanner | | | | | | + +-------+ +--------+---+---+ +---+---+ | | | +---+---+ + +-------+ +--------+---+---+ | lidocaine (XYLOCAINE) 2% | Given | | 10 mLs | | | | viscous solution 10 mL 10 mL, | | 8 22:35 | | | | | Oral, ONCE, 02/23/18 at 2225, | | PST | | | | | For 1 dose, Mix lidocaine and | | | | | | | MAALOX. Frank badillo. | | | | | | + +-------+ +--------+---+---+ +---+---+ | | | +---+---+ + +-------+ +--------+---+---+ | LORazepam (ATIVAN) injection | Given | | 0.5 mg | | | | 0.5 mg 0.5 mg, Intravenous, | | 8 22:56 | | | | | ONCE, 02/23/18 at 2255, For 1 | | PST | | | | | dose | | | | | | + +-------+ +--------+---+---+ +---+---+ | | | +---+---+ + +-------+ +-------+---+---+ | prochlorperazine (COMPAZINE) | Given | | 10 mg | | | | injection 10 mg 10 mg, | | 8 23:27 | | | | | Intravenous, ONCE, 02/23/18 at | | PST | | | | | 2255, For 1 dose | | | | | | + +-------+ +-------+---+---+ +---+---+ | | | +---+---+ + +---------+ +--------+-------+---+ | sodium chloride 0.9% (NS) bolus | New Bag | | 1,000 | 1000 | | | 1,000 mL 1,000 mL, Intravenous, | | 8 22:46 | mLs | mL/hr | | | Administer over 1 Hours, ONCE, | | PST | | | | | 02/23/18 at 2245, For 1 dose | | | | | | + +---------+ +--------+-------+---+ +---+---+ | | | +---+---+ in this encounter"
--- OUTSIDE RECORDS SUMMARY | ~2018-05-17 | XMS | Encounter Summary ---
Demographics + + + | Address | [address] | | | [place] [address] | + + + | Home Phone | | + + + | Preferred Language | Unknown | + + + | Marital Status | Legally | + + + | Mosque Affiliation | 1025 | + + + | Race | Unknown | + + + | Ethnic Group | Unknown | + + + Author + + + | Author | [facility] | | | and [place] | + + + | Organization | [facility] | | | and [place] | + + + | Address | Unknown | + + + | Phone | Unavailable | + + + Support + + + + + | Name | Relationship | Address | Phone | + + + + + | Mar Ahmadi | ECON | NA | | | | | [place] [address] | | + + + + + | Magdaleno Vásquez | ECON | [address] | | | o | | [place] | | | | | [address] | | + + + + + Care Team Providers + +------+ + | Care Automotive Parts Counter Person Name | Role | Phone | + +------+ + | Barbara Hill MD | PCP | | + +------+ + Reason for Visit + + + | Reason | Comments | + + + | Therapy Daily | | | Treatment | | + + + Evaluate & Treat (Routine) +--------+ + + + + + | Status | Reason | Specialty | Diagnoses / | Referred By | Referred To | | | | | Procedures | Contact | Contact | +--------+ + + + + + | Closed | Specialty | Physical | Diagnoses | Sophie, | [facility] | | | Services | Therapy / | Right knee | Homer | Pt Op [address] | | | Required | Rehabilitatio | pain, | [address] | [place] | | | | n | unspecified | [address] | [place], | | | | | chronicity | [facility] | [place] [address] | | | | | S/P TKR | [place], [place] | Phone: | | | | | (total knee | [address] | [phone] | | | | | replacement) | Phone: | Fax: | | | | | , right | [phone] | [phone] | | | | | [phone] | Fax: | | | | | | (ICD-10-CM) | [phone] | | | | | | - [phone] | | | | | | | (ICD-9-CM) - | | | | | | | Right knee | | | | | | | pain, | | | | | | | unspecified | | | | | | | chronicity | | | | | | | Procedures | | | | | | | pt eval dc | | | | | | | hh 11/30 | | | +--------+ + + + + + Encounter Details +--------+---------+ + + + | Date | Type | Department | Care Team | Description | +--------+---------+ + + + | 02/15/ | Office | [facility] | Homer Barrios | Acute pain of right | | 2018 | Visit | MED CTR THERAPY PT | [address] | knee; Presence of | | | | OP [address] [place] | right artificial | | | | [place], [place] | [place] [address] | knee joint | | | | [address] | [phone] | | | | | [phone] | | | | | | | Robin Perez, | | | | | | ASSOCIATE SALES MANAGER [address] | | | | | | [place] | | | | | | [address] | | | | | | | | | | | | Dhara Charles, | | | | | | Aide | | +--------+---------+ + + + Social [...] + as of this encounter Progress Notes Robin Perez, ASSOCIATE SALES MANAGER - 02/15/2018 1345 PSTFormatting of this note may be different from prabhakar morin. [facility] CTR THERAPY PT OP [address] [place] [address] Physical Therapy Daily Treatment Note Date: 02/15/2018 Patient Information Patient Name: Desire Ahmadi Date of : 1975 Age: 42 y.o. Encounter Diagnoses Code Name Primary? M25.561 Acute pain of right knee Z96.651 Presence of right artificial knee joint Date of Onset: 11/12/2017 Referring Provider: [place] Barrios PA-C # of PT Visits to Date: 13 Start Time: 1407 Stop time: 1430 Duration: 23 minutes Timed Treatment Codes: 23 minutes Rehab Precautions Office Visit from 12/04/2017 in [facility] CTR THERAPY PT OP Rehab Precautions Precautions None Pain Assessment: Pain Scale Used: NUMERIC Pain Rating Pre Assessment: 1 Location: right knee Subjective: Desire arrives at her therapy appointment 20 minutes late do to not having transportation. Agreed to a short session with therapist assistant scientist. Objective: Therapeutic exercise to improve strength, coordination and neuromotor control for right LE: -contract/relax: quad/hamstring -Quad sets with heel on towel roll, 2 x 15, 10 sec hold -PROM into knee flexion and extension -Gentle grade II-III mobilizations into flexion and extension Assessment: Pt tolerated session well and did have an increase in knee mobility. Patient still demonstr ates decreased quadriceps strength and is still challenged with quad extension exercises in supine and has evident extension lag during straight leg raises. Patient son accompanied her at appointment and was educated and instructed on what exercises his mom should be focusing on at home. Plan: Cont. To progress right knee ROM/strength, manual therapy as indicated Electronically signed by: Robin Perez PTA, 02/15/2018 17:02 Patient Name: Desire Ahmadi/: 1975/ in this encounter Plan of Treatment +--------+ + + + + | Date | Type | Specialty | Care Team | Description | +--------+ + + + + | 08/05/ | Office | Cardiology | Shannen Dumontr | | | 2018 | Visit | | MD Noe [address] | | | | | | [address] [place] | | | | | | [place] [address] | | | | | | [phone] | | | | | | | | +--------+ + + + + | 02/24/ | Appointment | Oncology | Guillermo, | | | 2018 | | | Luke Antony MD [address] | | | | | | [address] [place] | | | | | | [place] [address] | | | | | | [phone] | | | | | | | | +--------+ + + + + as of this encounter Visit Diagnoses + + | Diagnosis | + + | Acute pain of right knee | + + | Presence of right artificial knee joint | + + | Knee joint replacement by other means | + +"
--- OUTSIDE RECORDS SUMMARY | ~2018-05-17 | XMS | Encounter Summary ---
Demographics + + + | Address | [address] | | | [place] [address] | + + + | Home Phone | | + + + | Preferred Language | Unknown | + + + | Marital Status | Legally | + + + | Anabaptism Affiliation | 1025 | + + + | Race | Unknown | + + + | Ethnic Group | Unknown | + + + Author + + + | Author | [facility] | | | and [place] | + + + | Organization | [facility] | | | and [place] | + + + | Address | Unknown | + + + | Phone | Unavailable | + + + Support + + + + + | Name | Relationship | Address | Phone | + + + + + | Mar Ahmadi | ECON | NA | | | | | [place] [address] | | + + + + + | Magdaleno Vásquez | ECON | [address] | | | o | | [place] | | | | | [address] | | + + + + + Care Team Providers + +------+ + | Care Insurance Verification Rep Name | Role | Phone | + [...] Rehabilitatio | pain, | [address] | [address] | | | | n | unspecified | [address] | [place], | | | | | chronicity | [facility] | [place] [address] | | | | | S/P TKR | [place], [place] | Phone: | | | | | (total knee | [address] | [phone] | | | | | replacement) | Phone: | Fax: | | | | | , right | [phone] | [phone] | | | | | [phone] | Fax: | | | | | | (ICD-10-CM) | [phone] | | | | | | - [...] + + | 02/15/ | Office | [facility] | Homer Barrios | Acute pain of right | | 2018 | Visit | MED CTR THERAPY PT | [address] | knee; Presence of | | | | OP [address] | [address] [place] | right artificial | | | | [place], [place] | [place] [address] | knee joint | | | | [address] | [phone] | | | | | [phone] | | | | | | | Robni Perez, | | | | | | DISHING MACHINE OPERATOR [address] | | | | | | [place] | | | | | | [address] | | | | | | | [...] of this encounter Progress Notes Robin Perez, DISHING MACHINE OPERATOR - 02/15/2018 1345 PSTFormatting of this note may be different from prabhakar morin. [facility] CTR THERAPY PT OP [address] [place] [address] Physical Therapy Daily Treatment Note Date: 02/15/2018 [...] Rehab Precautions Office Visit from 12/04/[address] [facility] CTR THERAPY PT OP Rehab Precautions Precautions None Pain Assessment: Pain Scale Used: NUMERIC Pain Rating Pre Assessment: 1 Location: right knee Subjective: Desire arrives at her therapy appointment 20 minutes late do to not having transportation. Agreed to a short session with therapist quality control assistant. Objective: Therapeutic exercise to improve strength, coordination [...] [address] | | | | | | [address] [place] | | | | | | [place] [address] | | | | | | [phone] | | | | | | | | +--------+ + + + + | 02/24/ | Appointment | Oncology | Guillermo, | | | 2018 | | | Luke Antony MD [address] | | | | | | [address] [place] | | | | | | [place] [address] | | | | | | [phone] | | | | | | | | +--------+ + + + + as of this encounter Visit Diagnoses + + | Diagnosis | + + | Acute pain of right knee | + + | Presence of right artificial knee joint | + + | Knee joint replacement by other means | + +"
--- OUTSIDE RECORDS SUMMARY | ~2018-05-17 | XMS | Clinical Summary ---
Demographics + + + | Address | [address] | | | [place] [address] | + + + | Home Phone | | + + + | Preferred Language | Unknown | + + + | Marital Status | | + + + | Spiritism Affiliation | JEH | + + + [...] Team Providers + +------+ + | Care Technical Sales Engineer Name | Role | Phone | + +------+ + | Barbara Hill MD | PP | | + +------+ + Source Comments NATASHA is fully live on both [facility] and [facility] Allergies No Known Allergies Current Medications + [...] + | DM type 2 without retinopathy ([facility]) | 08/02/2015 | + + + | [...] Morbid obesity with BMI of 50.0-59.9, adult ([facility]) | 05/11/19 | | | | 15 [...] - | | | | | | /[id number] | | [id number]: Qty: 2 on | | | | [...] | | n | | | | /[id number] | | | | | | | [...] & | | re | [address] | [place] [address] | | | B | | | | | + +--------+ +--------+ + + | DIRECTOR HOME MEDICAID | DIRECTOR HOME | xxxxxxxx | Medica | | | [...] | [birth year] | Home: | [address] | | A | al/[place] | | 1975 | [phone] | [place] | | | m[place]la | | | [phone] | [phone] | + +--------+ +--------+ + +
--- OUTSIDE RECORDS SUMMARY | ~2018-05-17 | XMS | Encounter Summary ---
Demographics + + + | Address | [address] | | | [place] [address] | + + + | Home Phone | | + + + | Preferred Language | Unknown | + + + | Marital Status | Legally | + + + | Denominational Affiliation | 1025 | + + + | Race | Unknown | + + + | Ethnic Group | Unknown | + + + Author + + + | Author | [facility] | | | and [place] | + + + | Organization | [facility] | | | and [place] | + + + | Address | Unknown | + + + | Phone | Unavailable | + + + Support + + + + + | Name | Relationship | Address | Phone | + + + + + | Mar Garrett | ECON | NA | | | | | [place] [address] | | + + + + + | Magdaleno Vásquez | ECON | [address] | | | o | | [place] | | | | | [address] | | + + + + + Care Team Providers + +------+ + | Care Crew Car Driver Name | Role | Phone | + +------+ + | Barbara Hill MD | PCP | | + +------+ + Encounter Details +--------+ + + + + | Date | Type | Department | Care Team | Description | +--------+ + + + + | 02/22/ | Hospital | [facility] | Guillermo, | Iron deficiency | | 2018 | Encounter | MED CTR MEDICAL | Luke Antony MD [address] | anemia following | | | | [facility] [address] | [facility] | bariatric surgery; | | | | [facility] | [place] [address] | Iron deficiency | | | | [place] [address] | [phone] | anemia due to | | | | [phone] | | chronic blood loss; | | | | | | Bipolar affective | | | | | | disorder, remission | | | | | | status unspecified | | | | | | ([facility]); 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 Hematology/Oncology Progress Note [facility] [place], [place] Pt. Name/Age/: Desire Garrett 42 y.o. 1975 Med. Record Number: [id number] Date of admission: 02/22/2018 Identifying Statement: Desire Garrett is a 42 y.o. female from [address] [place] [address] with Iron Deficiency following bariatric surgery. The [...] Gastric Bypass October 08, 2015 at [facility]. 2. Patient continues to menstruate regularly following bypass surgery. 3. Iron Studies at [facility] January 04, 2016; Iron 47 ug/dl, TIBC 441 ug/dl, Saturation 11 %, F erritin 15 ng/ml. 4. Ferrlecit 125 mg iv weekly x 4 January,. 5. Iron Studies at [facility] July 07, 2016; Iron 45 ug/dl , [...] in [facility] Oncol.: Nadia Harley., iDane Randolph., Kathleen Rinaldi., Mateo Proctor, Pauline Rose., [...] 0.01 K/uL 0.00 Pharmacovigilance: Palliative Care: Procedure: Luke Li MD Portions of this chart may have been created with Revales[employer] recognition software. Occasi onal wrong-word or sound-alike [...] | | | | | [place] [address] | | | | | | [phone] | | | | | | | | +--------+ + + + + | 02/24/ | Appointment | Oncology | Guillermo, | | | 2018 | | | Luke Antony MD [address] | | | | | | [address] [place] | | | | | | [place] [address] | | | | | | [phone] | | | | | | | [...] 0.00 | 0.00 - 0.01 K/uL | [facility] | | | | | [facility] | | | | | CENTER [...] + | [facility] | [address] | [place], [place] | [phone] | | [facility] | | [address] | | | - LABORATORY | | | | + + + + + | [facility] | [address] | [place], [place] | | | [facility] | | [address] | | | - LABORATORY | | [...] 7 | 7 - 18 mg/dL | [facility] | | | | | [facility] | | | | | CENTER - | | | | | LABORATORY | + + + + + | Creatinine | 0.37 (L) | 0.60 - 1.30 mg/dL | [facility] | | | | | [facility] | | | | | CENTER - | | | | | LABORATORY | + + + + + | eGFR if not | >60Comment: GLOMERULAR | >=60 mL/min/1.73m2 | [facility] | | [place] [place] | FILTRATION | | [facility] | | | RATE,ESTIMATED mL/min | | CENTER - | | | /[id number] than 60 | | LABORATORY | | [...] | | appended report. These | | [facility] | | | results [...] + | [facility] | [address] | [place] | [phone] | | [facility] | | [address] | | | - LABORATORY | | | | + + + + + | [facility] | [address] | [place] | | | [facility] | | [address] | | | - LABORATORY | | | | + + + + + Ferritin (02/22/2018 1037) + +-------+ + + | Component | Value | Ref Range | Performed At | + +-------+ + + | FERRITIN | 16 | 11 - 307 ng/mL | [facility] | | | | | [facility] | | | | | CENTER [...] [address] | [place] | [phone] | | [facility] | | [address] | | | - LABORATORY | | | | + + + + + | [facility] | [address] | [place], [place] | | | [facility] | | [address] | | | - LABORATORY | | | | + + + + + Iron and Transferrin (02/22/2018 1037) + + + + + | Component | Value | Ref Range | Performed At | + + + + + | Iron | 66 | 40 - 150 ug/dL | [facility] | | | | | [facility] | | | | | CENTER - | | | | | LABORATORY | + + + + + | TRANSFERRIN | 262.3 | 240.0 - 480.0 mg/dL | [facility] | | | | | [facility] | | | | | CENTER [...] + | [facility] | [address] | [place] | [phone] | | [facility] | | [address] | | | - LABORATORY | | | | + + + + + | [facility] | [address] | [place] | | | [facility] | | [address] | | | - LABORATORY | | | | + + + + + Lactate Dehydrogenase (02/22/2018 1037) + +-------+ + + | Component | Value | Ref Range | Performed At | + +-------+ + + | LDH TOTAL | 112 | 91 - 180 U/L | [facility] | | | | | [facility] | | | | | CENTER - | | | | | LABORATORY | + +-------+ + + + + | Specimen | + + | Blood | + + + + + + + | Performing | Address | City/State/Zipcode | Phone Number | | Organization | | | | + + + + + | [facility] | [address] | [place] | [phone] | | [facility] | | [address] | | | - LABORATORY | | | | + + + + + | [facility] | [address] | [place] | | | [facility] | | [address] | | | - LABORATORY | | [...]
--- OUTSIDE RECORDS SUMMARY | ~2018-05-17 | XMS | Encounter Summary ---
Demographics + + + | Address | [address] | | | [place] [address] | + + + | Home Phone | | + + + | Preferred Language | Unknown | + + + | Marital Status | Legally | + + + | Samaritan Affiliation | 1025 | + + + | Race | Unknown | + + + | Ethnic Group | Unknown | + + + Author + + + | Author | [facility] | | | and [place] | + + + | Organization | [facility] | | | and [place] | + + + | Address | Unknown | + + + | Phone | Unavailable | + + + Support + + + + + | Name | Relationship | Address | Phone | + + + + + | Mar Ahmadi | ECON | NA | | | | | [place] [address] | | + + + + + | Magdaleno Vásquez | ECON | [address] | | | o | | [place] | | | | | [address] | | + + + + + Care Team Providers + +------+ + | Care Porter Sample Case Name | Role | Phone | + [...] + + | 03/27/ | Emergency | [facility] | Yemi Brian, | Bipolar I disorder, | | 2019 | | [facility] | [address] | single manic | | | | CENTER [address] | [place], [place] | episode, severe, | | | | [place], [place] | [phone] | with psychosis (HCC) | | | | [address] | | (Primary Dx); | | | | [phone] | Luke Fuentes | Medical clearance | | | | | MD Iman [address] | for psychiatric | | | | | [place], [place] | admission | | | | | [address] | | | | | | [phone] | | | | | | | [...] W | | | | | | [address] [place] | | | | | | [place] [address] | | | | | | [phone] | | | | | | | | +--------+ + + + + | 02/24/ | Appointment | Oncology | Guillermo, | | | 2018 | | | Luke Antony MD [address] | | | | | [address] [place] | | | | | | [place] [address] | | | | | | [phone] | | | | | | | [...] ST. | | | | | [facility] | | | | | CENTER - | | | | | LABORATORY | + +---------+ + + + + | Specimen | + + | Blood | + + + + + + + | Performing | Address | City/State/Zipcode | Phone Number | | Organization | | | | + + + + + | [facility] | [address] | [place] | [phone] | | [facility] | | [address] | | | - LABORATORY | | | | + + + + + | [facility] | [address] | [place], [place] | | | [facility] | | [address] | | | - LABORATORY | | | | + + + + + POC Glucose (03/27/2018845) + +---------+ + + | Component | Value | Ref Range | Performed At | + +---------+ + + | Glucose, POC | 201 (H) | 70 - 109 mg/dL | [facility] | | | | | [facility] | | | | | CENTER - | | | | | LABORATORY | + +---------+ + + + + | Specimen | + + | Blood | + + + + + + + | Performing | Address | City/State/Zipcode | Phone Number | | Organization | | | | + + + + + | [facility] | [address] | [place], [place] | [phone] | | [facility] | | [address] | | | - LABORATORY | | | | + + + + + | [facility] | [address] | [place], [place] | | | [facility] | | [address] | | | - LABORATORY | | | | + + + + + TSH (03/27/2018221) + + + + + | Component | Value | Ref Range | Performed At | + + + + + | TSH | 1.07Comment: This is a | 0.45 - 5.33 uIU/mL | [facility] | | | third generation TSH | | [facility] | | | test. | | CENTER [...] + | [facility] | [address] | [place] | [phone] | | [facility] | | [address] | | | - LABORATORY | | | | + + + + + | [facility] | [address] | [place], [place] | | | [facility] | | [address] | | | - LABORATORY | | | | + + + + + , Urine, Qual (03/27/2018221) + + + + + | Component | Value | Ref Range | Performed At | + + + + + | HCG SCREEN, URINE | Negative | Negative | [facility] | | | | | [facility] | | | | | CENTER - [...] + | [facility] | [address] | [place], [place] | [phone] | | [facility] | | [address] | | | - LABORATORY | | | | + + + + + | [facility] | [address] | [place], [place] | | | [facility] | | [address] | | | - LABORATORY | | | | + + + + + Salicylate Level (03/27/2018221) + +-------+ + + | Component | Value | Ref Range | Performed At | + +-------+ + + | Salicylate Level | <4.0 | <30.0 mg/dL | [facility] | | | | | [facility] | | | | | CENTER - [...] [address] | [place] | [phone] | | [facility] | | [address] | | | - LABORATORY | | | | + + + + + | [facility] | [address] | [place] | | | [facility] | | [address] | | | - LABORATORY | | | | + + + + + Acetaminophen Level (03/27/2018221) + +-------+ + + | Component | Value | Ref Range | Performed At | + +-------+ + + | Acetaminophen Level | <10 | <10 ug/mL | [facility] | | | | | [facility] | | | | | CENTER - | | | | | LABORATORY | + +-------+ + + + + | Specimen | + + | Blood | + + + + + + + | Performing | Address | City/State/Zipcode | Phone Number | | Organization | | | | + + + + + | [facility] | [address] | [place] | [phone] | | [facility] | | [address] | | | - LABORATORY | | | | + + + + + | [facility] | [address] | [place] | | | [facility] | | [address] | | | - LABORATORY | | | | + + + + + Ethanol (03/27/2018221) + +-------+ + + | Component | Value | Ref Range | Performed At | + +-------+ + + | ALCOHOL, | <5 | <400 mg/dL | [facility] | | SERUM/PLASMA | | | [facility] | | | | | CENTER - | | | | | LABORATORY | + +-------+ + + + + | Specimen | + + | Blood | + + + + + + + | Performing | Address | City[facility] | Phone Number | | Organization | | | | + + + + + | [facility] | [address] | [place] | [phone] | | [facility] | | [address] | | | - LABORATORY | | | | + + + + + | [facility] | [address] | [place] | | | [facility] | | [address] | | | - LABORATORY | | | | + + + + + Drugs of Abuse, Screen, Urine (03/27/2018221) + + + + + | Component | Value | Ref Range | Performed At | + + + + + | Amphetamine Screen, | Negative | Negative | [facility] | | Urine | | | [facility] | | | | | CENTER - | | | | | LABORATORY | + + + + + | Barbiturates Screen, | Negative | Negative | [facility] | | Urine | | | [facility] | | | | [...] + | [facility] | [address] | [place], [place] | [phone] | | [facility] | | [address] | | | - LABORATORY | | | | + + + + + | [facility] | [address] | [place], [place] | | | [facility] | | [address] | | | - LABORATORY | | [...] 16 | 7 - 18 mg/dL | [facility] | | | | | [facility] | | | | | CENTER - | | | | | LABORATORY | + + + + + | Creatinine | 0.56 (L) | 0.60 - 1.30 mg/dL | [facility] | | | | | [facility] | | | | | CENTER - | | | | | LABORATORY | + + + + + | eGFR if not | >60Comment: GLOMERULAR | >=60 mL/min/1.73m2 | [facility] | | [place] [facility] | FILTRATION | | [facility] | | | RATE,ESTIMATED mL/min | | CENTER - | | | /1.77e1Ocpx than 60 | | LABORATORY | | [...] ST. | | Ratio | | | [facility] | | | | | CENTER - | | | | | LABORATORY | + + + + + | BUN/Creatinine Ratio | 28.6 | | [facility] | | | | | [facility] | | | | [...] + | [facility] | [address] | [place] | [phone] | | [facility] | | [address] | | | - LABORATORY | | | | + + + + + | [facility] | [address] | [place] | | | [facility] | | [address] | | | - LABORATORY | | [...] [facility] | | | | | [facility] | | | | [...] ranges: Trim. Absolute (K/uL) Percentage (%) | [facility] | | 1st 0.003-0.091 K/uL 0.0-0.9% 2nd 0.007-0.247 K/uL [facility] | | 0.1-2.0% 3rd 0.018-0.456 K/uL 0.1-2.0% | - LABORATORY | + + + + + + + + | Performing | Address | City/State/Zipcode | Phone Number | | Organization | | | | + + + + + | [facility] | [address] | [place], [place] | [phone] | | [facility] | | [address] | | | - LABORATORY | | | | + + + + + | [facility] | [address] | [place], [place] | | | [facility] | | [address] | | | - LABORATORY | | [...]
--- OUTSIDE RECORDS SUMMARY | ~2018-05-17 | XMS | Clinical Summary ---
Demographics + + + | Address | [address] | | | [place] [address] | + + + | Home Phone | | + + + | Preferred Language | Unknown | + + + | Marital Status | Legally | + + + | [employer] Affiliation | 1025 | + + + | Race | Unknown | + + + | Ethnic Group | Unknown | + + + Author + + + | Author | [facility] | | | and [place] | + + + | Organization | [facility] | | | and [place] | + + + | Address | Unknown | + + + | Phone | Unavailable | + + + Support + + + + + | Name | Relationship | Address | Phone | + + + + + | Mar Garrett | ECON | NA | | | | | [place] [address] | | + + + + + | Magdaleno Vásquez | ECON | [address] | | | o | | [place] | | | | | [address] | | + + + + + Care Team Providers + +------+ + | Care Provider Relations Specialist Name | Role | Phone | + +------+ + | Barbara Hill MD | PP | | + +------+ + Allergies No Known Allergies Current Medications + [...] | | Activ | | (VITAMIN B-12) 1000 | mouth Daily. | | | | | e | | MCG tablet | | | | | | | + + +--------+---------+------+------+-------+ | Calcium | Take 1 tablet by | | | | | Activ | | Citrate-Vitamin D | mouth Daily. | | | | | e | | (CALCIUM CITRATE + | | | | | | | | PO) | | | | | | | + + +--------+---------+------+------+-------+ | Multiple | Take 1 tablet by | | | | | Activ | | Vitamins-Minerals | mouth Daily. | | | | | e | | (MULTIVITAMIN ADULT | | | | | | | | PO) | | | | | | | + + +--------+---------+------+------+-------+ | metFORMIN | Take 1,000 mg by | | | 04/1 | | Activ | | (GLUCOPHAGE) 500 mg | mouth 2 times daily | | | 8/20 | | e | | tablet | (with breakfast & | | | 18 | | | | | dinner). | | | | | | + + +--------+---------+------+------+-------+ | traMADol (ULTRAM) | Take 1-2 tablets by | 10 | 0 | 02/1 | | Activ | | 50 mg tablet | mouth every 6 hours | tablet | | 3/20 | | e | | | as needed for Pain. | | | 19 | | | + + +--------+---------+------+------+-------+ | ibuprofen | Take 1 tablet by | 20 | 0 | 02/1 | 02/1 | Expir | | (ADVIL,MOTRIN) 600 | mouth every 6 hours | tablet | | 3/20 | 8/20 | ed | | MG tablet | for 5 days. | | | 19 | 19 | | + + +--------+---------+------+------+-------+ Active Problems + + + | Problem | Noted Date | + + + | Other chest pain | 05/13/2018 | + + + | Right knee pain | 12/04/2017 | + + + | Presence of right artificial knee joint | 12/04/2017 | + + + | Menorrhagia with regular cycle | 12/04/2016 | + + + + + | Overview: Overview: | | EMB normal 11/2016 | | | | Last Assessment & Plan: | | Successful treatment with Mirena IUD. | | | | Overview: | | EMB normal 11/2016. Managed effectively with Mirena IUD | | | | Last Assessment & Plan: | | Successful treatment with Mirena IUD. | + + + + + | History of bariatric surgery | 12/02/2016 | + + + + + | Overview: Last Assessment & Plan: Successful weight loss with | | bariatric surgery. Recent labs obtained by her commercial lines manager's | | are reassurance regarding her vitamin levels and anemia. No | | further studies needed today.Last Assessment & Plan: Weight has | | stabilized. She would like to lose more. She is going to return | | to exercising. | + + + + + | Iron deficiency | 12/02/2016 | + + + + + | Overview: Overview: | | After bariatric surgery + menorrhagia. | | Resolved after Mirena IUD insertion | + + + + + | Iron deficiency anemia following bariatric surgery | 02/02/2016 | + + + + + | Overview: ACTIVE DIAGNOSIS; Iron deficiency following | | bariatric surgery.1. Eunice en Y Gastric Bypass October 08, 2015 at | | [facility].2. Patient continues to menstruate regularly following | | bypass surgery. 3. Iron Studies at [facility] January 04, 2016; Iron 47 | | ug/dl, TIBC 441 ug/dl, Saturation 11 %, Ferritin 15 ng/ml.4. | | Ferrlecit 125 mg iv weekly x 4 January,.5. Iron Studies at | | [facility] July 07, 2016; Iron | | 45 ug/dl, TIBC 369 ug/dl, Saturation 7 %, Ferritin 7 ng/ml.6. IUD | | placed in January,.7. Ferrlecit 125 mg iv weekly x 4 in | | February,. Last Assessment & Plan: Desire Garrett | | returned to clinic on 02/22/2018 for follow up of her iron | | deficiency anemia.Interval history is notable for the fact that | | Desire had her right knee replaced.Review of systems is notable | | for the fact that Desire's menses remain light after placement of | | an IUD one year ago. She denies any PICA for ice.Clinical exam | | is negative for pallor.Laboratory exam is negative for anemia, | | tSat is 18%.Assessment; Iron deficiency anemia due to iron | | malabsorption following bariatric surgery-improved after | | intravenous ferrlecit and interruption of menses with IUD.Plan; | | Continue to monitor. Clinical and laboratory follow up in one | | year. | + + + + + | Iron deficiency anemia due to chronic blood loss | 01/29/2016 | + + + | B12 nutritional deficiency | 01/04/2016 | + + + | Hypovitaminosis D | 01/04/2016 | + + + | Metrorrhagia | 01/04/2016 | + + + | Weight loss | 01/04/2016 | + + + | S/P gastric bypass | 11/09/2015 | + + + | DM type 2 without retinopathy (HCC) | 08/02/2015 | + + + | Morbid obesity (HCC) | 08/02/2015 | + + + | Diabetes mellitus with insulin therapy (HCC) | 07/21/2014 | + + + | Generalized muscle weakness | 07/19/2014 | + + + | Bilateral anterior knee pain | 07/19/2014 | + + + | Lumbago | 07/19/2014 | + + + | Type 2 diabetes mellitus with diabetic retinopathy (HCC) | 07/19/2014 | + + + + + | Overview: Last Assessment & Plan: Patient continues with good | | lifestyle choices and mild weight loss. She is now only using | | metformin. Recheck A1c. She may be able to decrease her | | metformin dose.Patient had self discontinued atorvastatin. I | | recommended that she restart pravastatin for primary | | prevention.Last Assessment & Plan: Patient continues with good | | lifestyle choices and mild weight loss. She is now only using | | metformin. Recheck A1c. She may be able to decrease her | | metformin dose.Patient had self discontinued atorvastatin. I | | recommended that she restart pravastatin for primary prevention. | + + + + + | Abnormal EKG | 06/05/2014 | + + + | Gait difficulty | 05/11/2014 | + + + | Background diabetic retinopathy (HCC) | 09/06/2012 | + + + + + | Overview: Overview: | | Ophtho appt 2012 | | | | IMO Problem List Replacement - 2016_Regulatory_1 | | | | Overview: | | Ophtho appt 2012 | | | | IMO Problem List Replacement - 2016_Regulatory_1 | + + + + + | Borderline personality disorder (HCC) | 07/13/2012 | + + + + + | Overview: Overview: | | consist symptoms. | | | | Overview: | | consist symptoms. | | | | Overview: | | consist symptoms. | + + + + + | Vitamin D deficiency | 12/23/2011 | + + + + + | Overview: Overview: | | Dx Name changed by system update on 01/02/2017 | | | | Last Assessment & Plan: | | Requires rx dose. | + + + + + | Esophageal reflux | 12/16/2011 | + + + | Osteoarthrosis | 12/12/2011 | + + + + + | Overview: Overview: OSTEOARTHRITIS OF BILATERAL KNEES; spine. | | Dr. Frank needs wt less than 250 prior to surgery | |prior to surgery | + + + + + | Other and unspecified hyperlipidemia | 12/08/2011 | + + + + + | Overview: Overview: | | REconsider statin after age 39 | + + + + + | Bipolar disorder ([facility]) | 01/14/2011 | + + + + + | Overview: Overview: Managed by Max Toney. With psychosisDx | | Name changed by system update on 01/02/2017Last Assessment & | | Plan: Encouraged patient to stay on medication | | chronicallyOverview: Managed by Max Toney. With psychosisDx | | Name changed by system update on 01/02/2017Last Assessment & | | Plan: Patient has been severely ill in the past. I cautioned her | | about being off medications. She expresses understanding and | | reports that she will seek care if necessary. | |Overview: | |Managed by Max Toney. With psychosis | | | |Dx Name changed by system update on 01/02/2017 | | | |Last Assessment & Plan: | |Patient has been severely ill in the past. I cautioned her about being off medications. S he expresses understanding and reports that she will seek care if necessary. | + + + + + | Obesity, morbid, BMI 50 or higher ([facility]) | 08/14/2004 | + + + + + | Overview: Overview: | | BMI 54.8 | | | | Last Assessment & Plan: | | DOing well post bariatric surgery. Keep follow up in [place], | | | | Overview: | | BMI 54.8 | | | | Last Assessment & Plan: | | DOing well post bariatric surgery. Keep follow up in [place], | + + Encounters +--------+ + + + + | Date | Type | Specialty | Care Team | Description | +--------+ + + + + | 05/05/ | Emergency | | Darrion Locke, | Strain of neck | | 2019 | | | MD | muscle, initial | | | | | | encounter (Primary | | | | | | Dx); Thoracic | | | | | | myofascial strain, | | | | | | initial encounter; | | | | | | Lumbar strain, | | | | | | initial encounter; | | | | | | Contusion of right | | | | | | hip, initial | | | | | | encounter | +--------+ + + + + | 03/30/ | Documentati | | Alyssia Perez, | Discharge Without | | 2019 | on | | PT | Visit | +--------+ + + + + | 03/27/ | Emergency | | Yemi Brian, | Bipolar I disorder, | | 2019 | | | MD Fuentes, | single manic | | | | | Luke Valerio MD | episode, severe, | | | | | | with psychosis (HCC) | | | | | | (Primary Dx); | | | | | | Medical clearance | | | | | | for psychiatric | | | | | | admission | +--------+ + + + + | 02/23/ | Emergency | | Arnel Roca | Chest pain, | | 2017 - | | | MD Luke | unspecified type | | | | | | (Primary Dx) | | 02/24/ | | | | | | 2018 | | | | | +--------+ + + + + | 02/22/ | Office | | Homer Barrios | Acute pain of right | | 2017 | Visit | | MARÍA Yougn, | knee; Presence of | | | | | Alyssia B, PT | right artificial | | | | | | knee joint | +--------+ + + + + | 02/22/ | Hospital | | Guillermo, | Iron deficiency | | 2018 | Encounter | | Luke Antony MD | anemia following | | | | | | bariatric surgery; | | | | | | Iron deficiency | | | | | | anemia due to | | | | | | chronic blood loss; | | | | | | Bipolar affective | | | | | | disorder, remission | | | | | | status unspecified | | | | | | ([facility]); Borderline | | | | | | personality disorder | | | | | | ([facility]); Diabetes | | | | | | mellitus with | | | | | | insulin therapy | | | | | | ([facility]); DM type 2 | | | | | | without retinopathy | | | | | | ([facility]); Morbid | | | | | | obesity ([facility]) | +--------+ + + + + | 02/19/ | Telephone | | Alyssia Perez, | No Show | | 2017 | | | PT | | +--------+ + + + + | 02/15/ | Office | | Homer Barrios | Acute pain of right | | 2018 | Visit | | MARÍA Young, | knee; Presence of | | | | | Robin T, HOT ROLL LAMINATOR | right artificial | | | | | Dhara Charles, | knee joint | | | | | Aide | | +--------+ + + + + from Last 3 Months Immunizations + + + + | Name | Dates Previously Given | Next Due | + + + + | INFLUENZA, | 03/02/2007 | | | UNSPECIFIED | | | | FORMULATION | | | + + + + | IPV, 4 DOSE | 01/20/2001 | | | (PED/ADULT) | | | + + + + | MMR, 2 DOSE | 01/20/2001 | | | (PED/ADULT) | | | + + + + | PPD Test | 07/26/2004, 01/20/2001 | | + + + + | TD PF (2 LF TETANUS) | 01/20/2001 | | | (ADOL/ADULT) | | | + + + + | TDAP, (ADOL/ADULT) | 12/18/2014 | | + + + + Family History + + +------+ + | Medical History | Relation | Name | Comments | + + +------+ + | Diabetes | Mother | | | + + +------+ + + +------+ + + | Relation | Name | Status | Comments | + +------+ + + | Father | | | | + +------+ + + | Mother | | | | + +------+ + [...] Height | 157.5 cm (5' 2") | 12/29/2017 1325 PDT | + + + + | Body Mass Index | 37.31 | 05/05/2018 0101 PST | + + + + Plan of Treatment +--------+ + + + + | Date | Type | Specialty | Care Team | Description | +--------+ + + + + | 08/05/ | Office | | Kev Dumont | | | 2018 | Visit | | MD Prosper Liu [address] | | | | | | [address] | | | | | | [place] [address] | | | | | | [phone] | | | | | | | | +--------+ + + + + | 02/24/ | Appointment | | Guillermo, | | | 2018 | | | MD Prosper [address] | | | | | | [address] | | | | | | [place] [address] | | | | | | [phone] | | | | | | | | +--------+ + + + + + + + + + | Health Maintenance | Due Date | Last Done | Comments | + + + + + | Diabetic Eye Exam | | | | | | 3 | | | + + + + + | Diabetic Foot Exam | | | | | | 3 | | | + + + + + | Vaccine: | | | | | Pneumococcal 19-64 | 4 | | | | (PPSV23 only) Medium | | | | | Risk (1 of 1 - | | | | | PPSV23) | | | | + + + + + | Cervical Cancer | | | | | Screening (Pap) | 5 | | | + + + + + | Adult Annual | | | | | Wellness Visit | 5 | | | + + + + + | Microalbumin | | | | | Screening | 5 | | | + + + + + | Statin Therapy | | | | | (optimal intensity) | 5 | | | + + + + + | Vaccine: Influenza | | 03/02/2007 | | | (#1) | 8 | | | + + + + + | Hemoglobin A1c Q6 | | 11/10/2017 | | | Months | 9 | | | + + + + + | Vaccine: | | 12/18/2014, 01/20/2001 | | | Dtap/Tdap/Td (2 - | 5 | | | | Td) | | | | + + + + + Implants + +--------+--------+ +--------+--------+--------+ | Implanted | Type | Area | Manufacture | Device | Expira | Model | | | | | r | | tion | / | | | | | | Identi | Date | Serial | | | | | | fier | | / Lot | + +--------+--------+ +--------+--------+--------+ | Imp Knee Stem Wiley Por | Generi | Right: | CARO - | | 09/09/ | [id number] | | 12.5x150 - | c | Knee | ZIMM | | 2027 | / | | [id number]: Qty: 1 | | | | | | /[id number] | | on 11/12/2017 by Elmer, | | | | | | 0 | | Philippe Brody MD | | | | | | | + +--------+--------+ +--------+--------+--------+ | Tee Bone Palacos-R 40gm - | Generi | Right: | CARO - | | 04/22/ | 00-111 | | [id number]: Qty: 2 | c | Knee | ZIMM | | 2022 | 2-140- | | on 11/12/2017 by Elmer, | | | | | | 01 / | | Philippe Brody MD | | | | | | /[id number] | | | | | | | | 767 | + +--------+--------+ +--------+--------+--------+ | Imp Knee Femur Axle Oss - | Generi | Right: | CARO - | | 09/30/ | [id number] | | [id number]: Qty: 1 | c | Knee | ZIMM | | 2027 | / | | on 11/12/2017 by Elmer, | | | | | | /[id number] | | Philippe Brody MD | | | | | | 0 | + +--------+--------+ +--------+--------+--------+ | Imp Knee Yoke Reinf Oss - | Generi | Right: | CARO - | | 10/28/ | [id number] | | [id number]: Qty: 1 | c | Knee | ZIMM | | 2027 | / | | on 11/12/2017 by Elmer, | | | | | | /[id number] | | Philippe Brody MD | | | | | | 0 | + +--------+--------+ +--------+--------+--------+ | Imp Knee Fem Bshng Poly Oss - | Generi | Right: | CARO - | | 09/15/ | [id number] | | [id number]: Qty: 1 | c | Knee | ZIMM | | 2022 | / | | on 11/12/2017 by Elmer, | | | | | | /[id number] | | Philippe Brody MD | | | | | | 0 | + +--------+--------+ +--------+--------+--------+ | Imp Knee Tib Bshng Poly Oss - | Generi | Right: | CARO - | | 09/10/ | [id number] | | [id number]: Qty: 1 | c | Knee | ZIMM | | 2022 | / | | on 11/12/2017 by Elmer, | | | | | | / | | Philippe Brody MD | | | | | | 0 | + +--------+--------+ +--------+--------+--------+ | Imp Knee Tib Bsplt Lng Oss 63 | Generi | Right: | CARO - | | 07/29/ | [id number] | | - [id number]: Qty: | c | Knee | ZIMM | | 2027 | / | | 1 on 11/12/2017 by Elmer, | | | | | | /[id number] | | Philippe Brody MD | | | | | | 0 | + +--------+--------+ +--------+--------+--------+ | Imp Knee Rev Tib Poly Oss | Generi | Right: | CARO - | | 06/21/ | [id number] | | 18mm - [id number]: | c | Knee | ZIMM | | 2021 | / | | Qty: 1 on 11/12/2017 by | | | | | | /[id number] | | Philippe Payne MD | | | | | | 0 | + +--------+--------+ +--------+--------+--------+ | Imp Knee Pin Lock Poly Oss - | Generi | Right: | CARO - | | 09/14/ | [id number] | | [id number]: Qty: 1 | c | Knee | ZIMM | | 2022 | / | | on 11/12/2017 by Elmer, | | | | | | / | | Philippe Brody MD | | | | | | 0 | + +--------+--------+ +--------+--------+--------+ | Imp Knee Resurf Oss 3cm Rt - | | Right: | CARO - | | 11/06/ | [id number] | | [id number]: Qty: 1 | | Knee | ZIMM | | 2024 | / | | on 11/12/2017 by Elmer, | | | | | | /[id number] | | Philippe Brody MD | | | | | | 0R | + +--------+--------+ +--------+--------+--------+ Procedures + +--------+ + + + | [...] Results for this | | | | 221 PST | | procedure [...] this | | METABOLIC PANEL | | 022 PST | | procedure [...] for this | | PEPTIDE | | 2220 PST | | procedure are in the | | | | | | results section. | + +--------+ + + + | TROPONIN I | Routin | 02/23/2018 | | Results for this | | | e | 2220 PST | | procedure are in the | | | | | | results section. | + +--------+ + + + | COMPREHENSIVE | STAT | 02/23/2018 | | Results for this | | METABOLIC PANEL | | 2220 PST | | procedure are in the | | | | | | results section. | + +--------+ + + + | CBC WITH | STAT | 02/23/2018 | | Results for this | | DIFFERENTIAL | | 2220 PST | | procedure are in the [...] Results for this | | | | 220 PST | | procedure are in the [...] | | + +--------+ + + + from Last 3 Months Results POC Glucose (03/27/2018 1211)Only the most recent of 2 results within the time period is in cluded. + +---------+ + + | Component | Value | Ref Range | Performed At | + +---------+ + + | Glucose, POC | 235 (H) | 70 - 109 mg/dL | [facility] | | | | | [facility] | | | | | [place] - | | | | | LABORATORY | + +---------+ + + + + | Specimen | + + | Blood | + + + + + + + | Performing | Address | City/State/Zipcode | Phone Number | | Organization | | | | + + + + + | [facility] | [address] | [place], [place] | [phone] | | [facility] | | [address] | | | - LABORATORY | | | | + + + + + | [facility] | [address] | [place], [place] | | | [facility] | | [address] | | | - LABORATORY | | | | + + + + + , Urine, Qual (03/27/2018221) + + + + + | Component | Value | Ref Range | Performed At | + + + + + | HCG SCREEN, URINE | Negative | Negative | [facility] | | | | | [facility] | | | | [...] | + + + + + | [facility] | [address] | [place] | [phone] | | [facility] | | [address] | | | - LABORATORY | | | | + + + + + | [facility] | [address] | [place] | | | [facility] | | [address] | | | - LABORATORY | | | | + + + + + Drugs of Abuse, Screen, Urine (03/27/2018221) + + + + + | Component | Value | Ref Range | Performed At | + + + + + | Amphetamine Screen, | Negative | Negative | [facility] | | Urine | | | [facility] | | | | | CENTER - | | | | | LABORATORY | + + + + + | Barbiturates Screen, | Negative | Negative | [facility] | | Urine | | | [facility] | | | | [...] + | [facility] | [address] | [place] | [phone] | | [facility] | | [address] | | | - LABORATORY | | | | + + + + + | [facility] | [address] | [place], [place] | | | [facility] | | [address] | | | - LABORATORY | | | | + + + + + CBC with Differential (03/27/2018221)Only the most recent of 2 results within the time gonzalez powell is included. + + + + + | Component [...] 0.00 - 0.01 K/uL | [facility] | | | | | [facility] [...] ranges: Trim. Absolute (K/uL) Percentage (%) | [facility] | | 1st 0.003-0.091 K/uL 0.0-0.9% 2nd 0.007-0.247 K/uL | MEDICAL CENTER | | 0.1-2.0% 3rd 0.018-0.456 K/uL 0.1-2.0% | - LABORATORY | + + + + + + + + | Performing | Address | City/State/Zipcode | Phone Number | | Organization | | | | + + + + + | [facility] | [address] | [place] | [phone] | | [facility] | | [address] | | | - LABORATORY | | | | + + + + + | [facility] | [address] | [place] | | | [facility] | | [address] | | | - LABORATORY | | | | + + + + + TSH (03/27/2018221) + + + + + | Component | Value | Ref Range | Performed At | + + + + + | TSH | 1.07Comment: This is a | 0.45 - 5.33 uIU/mL | [facility] | | | third generation TSH | | [facility] | | | test. | | CENTER [...] + | [facility] | [address] | [place], [place] | [phone] | | [facility] | | [address] | | | - LABORATORY | | | | + + + + + | [facility] | [address] | [place], [place] | | | [facility] | | [address] | | | - LABORATORY | | | | + + + + + Ethanol (03/27/2018221) + +-------+ + + | Component | Value | Ref Range | Performed At | + +-------+ + + | ALCOHOL, | <5 | <400 mg/dL | [facility] | | SERUM/PLASMA | | | [facility] | | | | [...] + | [facility] | [address] | [place] | [phone] | | [facility] | | [address] | | | - LABORATORY | | | | + + + + + | [facility] | [address] | [place] | | | [facility] | | [address] | | | - LABORATORY | | | | + + + + + Acetaminophen Level (03/27/2018221) + +-------+ + + | Component | Value | Ref Range | Performed At | + +-------+ + + | Acetaminophen Level | <10 | <10 ug/mL | [facility] | | | | [...] + | [facility] | [address] | [place] | [phone] | | [facility] | | [address] | | | - LABORATORY | | | | + + + + + | [facility] | [address] | [place], [place] | | | [facility] | | [address] | | | - LABORATORY | | | | + + + + + Salicylate Level (03/27/2018221) + +-------+ + + | Component | Value | Ref Range | Performed At | + +-------+ + + | Salicylate Level | <4.0 | <30.0 mg/dL | [facility] | | | | | [facility] | | | | [...] + | [facility] | [address] | [place], [place] | [phone] | | [facility] | | [address] | | | - LABORATORY | | | | + + + + + | [facility] | [address] | [place], [place] | | | [facility] | | [address] | | | - LABORATORY | | | | + + + + + Comprehensive Metabolic Panel (03/27/2018221)Only the most recent of 3 results within the time period is included. + + + + + | Component | Value | Ref Range | Performed At | + + + + + | Na | 132 (L) | 136 - 149 mmol/L | [facility] | | | [...] 16 | 7 - 18 mg/dL | [facility] | | | | | [facility] | | | | | CENTER - | | | | | LABORATORY | + + + + + | Creatinine | 0.56 (L) | 0.60 - 1.30 mg/dL | [facility] | | | | | [facility] | | | | | CENTER - | | | | | LABORATORY | + + + + + | eGFR if not | >60Comment: GLOMERULAR | >=60 mL/min/1.73m2 | [facility] | | RWANDAN | FILTRATION | | [facility] | | | RATE,ESTIMATED mL/min | | CENTER - | | | /1.59g0Hrbi than 60 | | LABORATORY | | [...] [facility] | | | | | [facility] | | | | | CENTER - | | | | | LABORATORY | + + + + + | Bilirubin Total | 0.5Comment: This is an | 0.1 - 1.5 mg/dL | [facility] | | | appended report. These | | [facility] | | | results [...] + | [facility] | [address] | [place], [place] | [phone] | | [facility] | | [address] | | | - LABORATORY | | | | + + + + + | [facility] | [address] | [place], [place] | | | [facility] | | [address] | | | - LABORATORY | | | | + + + + + Troponin I (02/24/2018 0100)Only the most recent of 2 results within the time period is inc eric. + + + + + | Component | Value | Ref Range | Performed At | + + + + + | Troponin I | <0.01Comment: Reference | <0.06 ng/mL | [facility] | | | Ranges:0.00-0.06 = | [...] infarction. | | | | | [employer] | | | | | [...] + + | Performing | Address | City/[facility] | Phone Number | | Organization | | | | + + + + + | [facility] | [address] | [place] | [phone] | | [facility] | | [address] | | | - LABORATORY | | | | + + + + + | [facility] | [address] | [place] | | | [facility] | | [address] | | | - LABORATORY | | | | + + + + + ECG 12 lead (02/24/201848)Only the most recent of 2 results within the time period is in cluded. + + + + + | Component | Value | Ref Range | Performed At | + + + + + | VENTRICULAR RATE EKG | 103 | B[facility] | [facility] | + + + + + | ATRIAL RATE | 103 | [facility] | [facility] | + + + + + | P-R INTERVAL | 154 | ms | [facility] | + + + + + | QRS DURATION | 98 | ms | WAMT MUSE | + + + + + | Q-T INTERVAL | 382 | ms | [facility]AMT MUSE | + + + + + | Q-T INTERVAL | 500 | ms | WAMT MUSE | | [...] priorConfirmed by | | | | | SAGAR URIOSTEGUI MD ([id number]) | | | | | on 02/24/2018 [...] A PCR | Negative | Negative | [facility] [place] | | | | | [facility] | | | | | CENTER - | | | | | LABORATORY | + + + + + | Influenza B PCR | Negative | Negative | [facility] | | | | | [facility] | | | | [...] + | [facility] | [address] | [place] | [phone] | | [facility] | | [address] | | | - LABORATORY | | | | + + + + + | [facility] | [address] | [place] | | | [facility] | | [address] | | | - LABORATORY | | | | + + + + + , Serum, Qual (02/23/20182220) + + + + + | Component | Value | Ref Range | Performed At | + + + + + | hCG Screen, Serum | Negative | Negative | [facility] | | | | | [facility] | | | | [...] + | [facility] | [address] | [place], [place] | [phone] | | [facility] | | [address] | | | - LABORATORY | | | | + + + + + | [facility] | [address] | [place], [place] | | | [facility] | | [address] | | | - LABORATORY | | | | + + + + + B Type Natriuretic Peptide (02/23/20182220) + +-------+ + + | Component | Value | Ref Range | Performed At | + +-------+ + + | BNP | 20 | <100 pg/mL | [facility] | | | | | [facility] | | | | [...] + | [facility] | [address] | [place] | [phone] | | [facility] | | [address] | | | - LABORATORY | | | | + + + + + | [facility] | [address] | [place], [place] | | | [facility] | | [address] | | | - LABORATORY | | | | + + + + + XR Chest AP Portable (02/23/2018 2219) + + + | Narrative | Performed [...] | | | + +---------+ + + CBC w/ Auto Differential (02/22/2018 1037) + + + + + | Component | Value | Ref Range | Performed At | + + + + + | WBC | 6.1 | 4.0 - 11.0 K/uL | [facility] | | | | | [facility] | | | | | CENTER - | | | | | LABORATORY | + + + + + | RBC | 4.45 | 3.70 - 5.20 M/uL | [facility] [...] | Granulocytes | patients, use | | [facility] | | | the special reference | | CENTER - | | | ranges listed below. | | LABORATORY | + + + + + | % nRBC | 0 | 0 - 2 per 100 WBC's | [facility] | | | | | [facility] | | | | | CENTER - | | | | | LABORATORY | + + + + + | Absolute nRBC | 0.00 | 0.00 - 0.01 K/uL | [facility] | | | | | [facility] [...] ranges: Trim. Absolute (K/uL) Percentage (%) | [facility] | | 1st 0.003-0.091 K/uL 0.0-0.9% 2nd 0.007-0.247 K/uL | [facility] | | 0.1-2.0% 3rd 0.018-0.456 K/uL 0.1-2.0% | - LABORATORY | + + + + + + + + | Performing | Address | City/State/Zipcode | Phone Number | | Organization | | | | + + + + + | [facility] | [address] | [place] | [phone] | | [facility] | | [address] | | | - LABORATORY | | | | + + + + + | [facility] | [address] | [place] | | | [facility] | | [address] | | | - LABORATORY | | | | + + + + + Iron and Transferrin (02/22/2018 1037) + + + + + | Component | Value | Ref Range | Performed At | + + + + + | Iron | 66 | 40 - 150 ug/dL | [facility] | | | | | [facility] | | | | | CENTER - | | | | | LABORATORY | + + + + + | TRANSFERRIN | 262.3 | 240.0 - 480.0 mg/dL | [facility] | | | | | [facility] | | | | | CENTER - | | | | | LABORATORY | + + + + + | TIBC | 367 | 235 - 425 ug/dL | [facility] | | | | | [facility] | | | | | CENTER - | | | | | LABORATORY | + + + + + | % SATURATION | 18.0 (L) | 20.0 - 55.0 % | [facility] | | | | | [facility] | | | | [...] + | [facility] | [address] | [place] | [phone] | | [facility] | | [address] | | | - LABORATORY | | | | + + + + + | [facility] | [address] | [place] | | | [facility] | | [address] | | | - LABORATORY | | | | + + + + + Lactate Dehydrogenase (02/22/2018 1037) + +-------+ + + | Component | Value | Ref Range | Performed At | + +-------+ + + | LDH TOTAL | 112 | 91 - 180 U/L | [facility] | | | | | [facility] | | | | [...] + | [facility] | [address] | [place], [place] | [phone] | | [facility] | | [address] | | | - LABORATORY | | | | + + + + + | [facility] | [address] | [place], [place] | | | [facility] | | [address] | | | - LABORATORY | | | | + + + + + Ferritin (02/22/2018 1037) + +-------+ + + | Component | Value | Ref Range | Performed At | + +-------+ + + | FERRITIN | 16 | 11 - 307 ng/mL | [facility] | | | | | [facility] | | | | [...] + | [facility] | [address] | [place] | [phone] | | [facility] | | [address] | | | - LABORATORY | | | | + + + + + | [facility] | [address] | [place] | | | [facility] | | [address] | | | - LABORATORY | | | | + + + + + from Last 3 Months Insurance + +--------+ +--------+ +---------+ | Payer | Benefi | Subscriber | Type | Phone | Address | | | t Plan | ID | | | | | | / | | | | | | | Group | | | | | + +--------+ +--------+ +---------+ | MEDICARE | MEDICA | [id number] | Medica | [phone] | | | | RE | | re | 555 | | | | PART A | | | | | | | AND B | | | | | + +--------+ +--------+ +---------+ | [place]ICAID [place] | MEDICA | [id number] | Medica | [phone] | | | [place] | | id | [phone] | | | | PLUS | | | | | + +--------+ +--------+ +---------+ + +--------+ +--------+ + + | Guarantor Name | Accoun | Relation to | Date | Phone | Billing Address | | | t Type | Patient | of | | | | | | | | | | + +--------+ +--------+ + + | DESIRE GARRETT | Person | Self | [birth year] | Home: | [address] | | [place] | al/Fam | | 1975 | +- | [place], [place] | | | mikayla | | | [address] | [address] | + +--------+ +--------+ + + | DESIRE GARRETT | Third | Self | [birth year] | Home: | [address] | | [place] | Libertarian | | 1975 | +- | [place], [place] | | | [place] | | | [address] | [address] | | | ity | | | | | + +--------+ +--------+ + +
--- OUTSIDE RECORDS SUMMARY | ~2018-05-17 | XMS | Encounter Summary ---
Demographics + + + | Address | [address] | | | [place] [address] | + + + | Home Phone | | + + + | Preferred Language | Unknown | + + + | Marital Status | Legally | + + + | Judaism Affiliation | 1025 | + + + | Race | Unknown | + + + | Ethnic Group | Unknown | + + + Author + + + | Author | [facility] | | | and [place] | + + + | Organization | [facility] | | | and [place] | + + + | Address | Unknown | + + + | Phone | Unavailable | + + + Support + + + + + | Name | Relationship | Address | Phone | + + + + + | Mar Ahmadi | ECON | NA | | | | | [place] [address] | | + + + + + | Magdaleno Vásquez | ECON | [address] | | | o | | [place] | | | | | [address] | | + + + + + Care Team Providers + +------+ + | Care Caseworker Protective Services Name | Role | Phone | + [...] + + | 02/19/ | Telephone | [facility] | Alyssia Perez, | No Show | | 2018 | | MED CTR THERAPY PT | PT [address] | | | | | OP [address] | [place] | | | | | [place] | [address] | | | | | [address] | | | | | | [phone] | | | +--------+ + + + [...] | | | | | [place] [address] | | | | | | [phone] | | | | | | | | +--------+ + + + + | 02/24/ | Appointment | Oncology | Guillermo, | | | 2018 | | | MD [address] | | | | | | [address] [place] | | | | | | [place] [address] | | | | | | [phone] | | | | | | | | +--------+ + + + + as of this encounter Visit Diagnoses Not on filein this encounter"
--- OUTSIDE RECORDS SUMMARY | ~2018-05-17 | XMS | Encounter Summary ---
Demographics + + + | Address | [address] | | | [place] [address] | + + + | Home Phone | | + + + | Preferred Language | Unknown | + + + | Marital Status | Legally | + + + | Buddhist Affiliation | 1025 | + + + | Race | Unknown | + + + | Ethnic Group | Unknown | + + + Author + + + | Author | [facility] | | | and [place] | + + + | Organization | [facility] | | | and [place] | + + + | Address | Unknown | + + + | Phone | Unavailable | + + + Support + + + + + | Name | Relationship | Address | Phone | + + + + + | Mar Ahmadi | ECON | NA | | | | | [place] [address] | | + + + + + | Magdaleno Vásquez | ECON | [address] | | | o | | [place] | | | | | [address] | | + + + + + Care Team Providers + +------+ + | Care Animal Groomer Name | Role | Phone | + [...] + + | 05/05/ | Emergency | [facility] | Darrion Locke, | Strain of neck | | 2019 | | MED CTR EMERGENCY | MD [address] | muscle, initial | | | | CENTER [address] | [facility] [place] | encounter (Primary | | | | [place], [place] | [place] [address] | Dx); Thoracic | | | | [address] | [phone] | myofascial strain, | | | | [phone] | | initial encounter; | | | [...] sent through Care Everywhere.Cervical Strain, Nupuran jose (Maltese)Back Sprain/Strain (Maltese)Hip Contusion (Maltese)in this encounter Medications at Time of Discharge [...] | | | | | [place] [address] | | | | | | [phone] | | | | | | | | +--------+ + + + + | 02/24/ | Appointment | Oncology | Guillermo, | | | 2018 | | | Luke Antony MD [address] | | | | | | [place] | | | | | | [place] [address] | | | | | | [phone] | | | | | | | [...]
--- OUTSIDE RECORDS SUMMARY | ~2018-05-17 | XMS | Encounter Summary ---
Demographics + + + | Address | [address] | | | [place] [address] | + + + | Home Phone | | + + + | Preferred Language | Unknown | + + + | Marital Status | Legally | + + + | Scientologist Affiliation | 1025 | + + + | Race | Unknown | + + + | Ethnic Group | Unknown | + + + Author + + + | Author | [facility] | | | and [place] | + + + | Organization | [facility] [...] | | | | | [place] [address] | | + + + + + | Magdaleno Vásquez | ECON | [address] | | | o | | [place] | | | | | [address] | | + + + + + Care Team Providers + +------+ + | Care Feed Blender Name | Role | Phone | + [...] + | 03/30/ | Documentati | [facility] | Alyssia Perez, | Discharge Without | | 2019 | on | MED CTR THERAPY PT | PT [address] | Visit | | | | OP [address] | [place] | | | | | [place] | [address] | | | | | [address] | | | | | | [phone] | | | +--------+ + + + [...] Notes Alyssia Perez, PT - 03/30/2018 [facility] [address] [place] [address] Physical Therapy Discharge Note This discharge is [...] | | | | | [place] [address] | | | | | | [phone] | | | | | | | | +--------+ + + + + | 02/24/ | Appointment | Oncology | Guillermo, | | | 2018 | | | MD [address] | | | | | | [place] | | | | | | [place] [address] | | | | | | [phone] | | | | | | | | +--------+ + + + + as of this encounter Visit Diagnoses Not on filein this encounter"
--- OUTSIDE RECORDS SUMMARY | ~2018-05-17 | XMS | Encounter Summary ---
Demographics + + + | Address | [address] | | | [place] [address] | + + + | Home Phone | | + + + | Preferred Language | Unknown | + + + | Marital Status | Legally | + + + | Zoroastrianism Affiliation | 1025 | + + + | Race | Unknown | + + + | Ethnic Group | Unknown | + + + Author + + + | Author | [facility] | | | and [place] | + + + | Organization | [facility] | | | and [place] | + + + | Address | Unknown | + + + | Phone | Unavailable | + + + Support + + + + + | Name | Relationship | Address | Phone | + + + + + | Mar Ahmadi | ECON | NA | | | | | [place] [address] | | + + + + + | Magdaleno Vásquez | ECON | [address] | | | o | | [place] | | | | | [address] | | + + + + + Care Team Providers + +------+ + | Care Orthotic Technician Name | Role | Phone | + [...] | unspecified | MD Luke | [address] | | | | | type ER | [address] | [address] | | | | | FUP | ST [place] | [place], | | | | | Procedures | [place], [place] | [place] [address] | | | | | [employer]ESSIONAL | [address] | Phone: | | | | | | Phone: | [phone] | | | | | | [phone] | Fax: | | | | | | Fax: | [phone] | | | | | | [phone] | | + + + + + + + Reason for Visit + + + | Reason | Comments | + + + | Chest Pain | | + + + Encounter Details +--------+ + + + + | Date | Type | Department | Care Team | Description | +--------+ + + + + | 02/23/ | Emergency | [facility] | Arnel Roca | Chest pain, | | 2018 - | | MED CTR EMERGENCY | MD Luke [address] | unspecified type | | | | [place] [address] | [address] [facility] | (Primary Dx) | | 02/24/ | | [place] | [place] [address] | | | 2017 | | [address] | [phone] | | | | | [phone] | | | +--------+ + + + [...] through Care Everywhere.Chest Pain, Uncertain Caus e (Danish)in this encounter Medications at Time of Discharge [...] W | | | | | | [address] [place] | | | | | | [place] [address] | | | | | | [phone] | | | | | | | | +--------+ + + + + | 02/24/ | Appointment | Oncology | Guillermo, | | | 2018 | | | Luke Antony MD [address] | | | | | | [address] [place] | | | | | | [place] [address] | | | | | | [phone] | | | | | | | [...] infarction. | | | | | [employer] | | | | | [...] + + | Performing | Address | City/State/[facility] | Phone Number | | Organization | | | | + + + + + | [facility] | [address] | [place] | [phone] | | [facility] | | [address] | | | - LABORATORY | | | | + + + + + | [facility] | [address] | [place], [place] | | | [facility] | | [address] | | | - LABORATORY | | [...] | | | | GILA PIERRE, SAGAR ([id number]) | | | | | on 02/24/2018 [...] [facility] | | | | | [facility] | | | | | CENTER - | | | | | LABORATORY | + + + + + | Influenza B PCR | Negative | Negative | [facility] | | | | | [facility] | | | | [...] + | [facility] | [address] | [place], [place] | [phone] | | [facility] | | [address] | | | - LABORATORY | | | | + + + + + | [facility] | [address] | [place], [place] | | | [facility] | | [address] | | | - LABORATORY | | [...] [address] | [place] | [phone] | | [facility] | | [address] | | | - LABORATORY | | | | + + + + + | [facility] | [address] | [place] | | | [facility] | | [address] | | | - LABORATORY | | [...] + | [facility] | [address] | [place], [place] | [phone] | | [facility] | | [address] | | | - LABORATORY | | | | + + + + + | [facility] | [address] | [place], [place] | | | [facility] | | [address] | | | - LABORATORY | | [...] + | [facility] | [address] | [place] | [phone] | | [facility] | | [address] | | | - LABORATORY | | | | + + + + + | [facility] | [address] | [place] | | | [facility] | | [address] | | | - LABORATORY | | [...] 8 | 7 - 18 mg/dL | [facility] | | | | | [facility] | | | | | CENTER - | | | | | LABORATORY | + + + + + | Creatinine | 0.34 (L) | 0.60 - 1.30 mg/dL | [facility] | | | | | [facility] | | | | | CENTER - | | | | | LABORATORY | + + + + + | eGFR if not | >60Comment: GLOMERULAR | >=60 mL/min/1.73m2 | [facility] | | ECUADOREAN | FILTRATION | | [facility] | | | RATE,ESTIMATED mL/min | | CENTER - | | | /1.77t9Velg than 60 | | LABORATORY | | [...] [facility] | | | | | [facility] | | | | | CENTER - | | | | | LABORATORY | + + + + + | Albumin | 3.8 | 3.2 - 5.0 g/dL | [facility] | | | | | [facility] | | | | | CENTER - | | | | | LABORATORY | + + + + + | Bilirubin Total | 0.5Comment: This is an | 0.1 - 1.5 mg/dL | [facility] | | | appended report. These | | [facility] | | | results [...] 3.3 | 2.1 - 3.8 g/dL | [facility] | | | | | [facility] | | | | | CENTER - | | | | | LABORATORY | + + + + + | Albumin/Globulin | 1.2 | 0.8 - 2.0 | [facility] | | Ratio | | | [facility] | | | | | CENTER - | | | | | LABORATORY | + + + + + | BUN/Creatinine Ratio | 23.5 | | [facility] | | | | | [facility] [...] + | [facility] | [address] | [place] | [phone] | | [facility] | | [address] | | | - LABORATORY | | | | + + + + + | [facility] | [address] | [place] | | | [facility] | | [address] | | | - LABORATORY | | [...] Granulocytes | patients, use the | | [facility] | | | special reference ranges [...] Trim. Absolute (K/uL) Percentage (%) | [facility] | | 1st 0.003-0.091 K/uL 0.0-0.9% 2nd 0.007-0.247 K/uL | [facility] | | 0.1-2.0% 3rd 0.018-0.456 K/uL 0.1-2.0% | - LABORATORY | + + + + + + + + | Performing | Address | City/State/Zipcode | Phone Number | | Organization | | | | + + + + + | [facility] | [address] | [place] | [phone] | | [facility] | | [address] | | | - LABORATORY | | | | + + + + + | [facility] | [address] | [place] | | | [facility] | | [address] | | | - LABORATORY | | [...] | | | | SAGAR URIOSTEGUI MD ([id number]) | | | | | on 02/24/2018 [...] 8 22:35 | | | | | [facility] 02/23/18 at 2225, For 1 dose, | [...] PST | | | | | Starting [facility] 02/23/18 at 2326, For | | | [...]
--- OUTSIDE RECORDS SUMMARY | ~2018-05-17 | XMS | Clinical Summary ---
Demographics + + + | Address | [address] | | | [place] [address] | + + + | Home Phone | | + + + | Preferred Language | Unknown | + + + | Marital Status | Legally | + + + | Religion Affiliation | 1025 | + + + | Race | Unknown | + + + | Ethnic Group | Unknown | + + + Author + + + | Author | [facility] | | | and [place] | + + + | Organization | [facility] | | | and [place] | + + + | Address | Unknown | + + + | Phone | Unavailable | + + + Support + + + + + | Name | Relationship | Address | Phone | + + + + + | Mar Garertt | ECON | NA | | | | | [place] [address] | | + + + + + | Magdaleno Vásquez | ECON | [address] | | | o | | [place] | | | | | [address] | | + + + + + Care Team Providers + +------+ + | Care Sole Dyer Name | Role | Phone | + [...] bariatric surgery. Recent labs obtained by her facility engineer's | | are reassurance regarding her vitamin [...] Bypass October 08, 2015 at | | [facility].2. Patient continues to menstruate regularly following | | bypass surgery. 3. Iron Studies at [facility] January 04, 2016; Iron 47 | | ug/dl, TIBC 441 ug/dl, Saturation 11 %, Ferritin 15 ng/ml.4. | | Ferrlecit 125 mg iv weekly x 4 January,.5. Iron Studies at | | [facility] July 07, 2016; Iron | | 45 [...] + + | Bipolar disorder ([facility]) | 01/14/2011 | + + + [...] morbid, BMI 50 or higher ([facility]) | 08/14/2004 | + + + + + | Overview: Overview: | | BMI 54.8 | | | | Last Assessment & Plan: | | DOing well post bariatric surgery. Keep follow up in [place], | | | | Overview: | | BMI 54.8 | | | | Last Assessment & Plan: | | DOing well post bariatric surgery. 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 | | | | | | ([facility]); Diabetes | | | | | | mellitus with | | | | | | insulin therapy | | | | | | ([facility]); DM type 2 | | | | | | without retinopathy | | | | | | ([facility]); Morbid | | | | | | obesity ([facility]) | +--------+ + + + + | [...] | | | | | Robin T, NURSE PLASTICS | right artificial | | | | [...] | | | | | [place] [address] | | | | | | [phone] | | | | | | | | +--------+ + + + + | 02/24/ | Appointment | | Guillermo, | | | 2018 | | | MD Prosper Coburn [address] | | | | | | [address] | | | | | | [place] [address] | | | | | | [phone] | | | | | | | [...] + +--------+--------+ +--------+--------+--------+ | Imp Knee Stem [place] Por | Generi | Right: | CARO - | | 09/09/ | [id number] | | 12.5x150 - | c | Knee | ZIMM | | 2027 | / | | [id number]: Qty: 1 | | | | | | /[id number] | | on 11/12/2017 by Elmer, | | | | | | 0 | | Philippe Brody MD | | | | | | | + +--------+--------+ +--------+--------+--------+ | Tee Bone Palacos-R 40gm - | Generi | Right: | CARO - | | 04/22/ | 00-111 | | [id number]: Qty: 2 | c | Knee | ZIMM | | 2022 | 2-140- | | on 11/12/2017 by Elmer, | | | | | | 01 / | | Philippe Brody MD | | | | | | /[id number] | | | | | | | | 767 | + +--------+--------+ +--------+--------+--------+ | Imp Knee Femur Axle Oss - | Generi | Right: | CARO - | | 09/30/ | [id number] | | [id number]: Qty: 1 | c | Knee | ZIMM | | 2027 | / | | on 11/12/2017 by Elmer, | | | | | | /[id number] | | Philippe Brody MD | | | | | | 0 | + +--------+--------+ +--------+--------+--------+ | Imp Knee Yoke Reinf Oss - | Generi | Right: | CARO - | | 10/28/ | [id number] | | [id number]: Qty: 1 | c | Knee | ZIMM | | 2027 | / | | on 11/12/2017 by Elmer, | | | | | | /[id number] | | Philippe Brody MD | | | | | | 0 | + +--------+--------+ +--------+--------+--------+ | Imp Knee Fem Bshng Poly Oss - | Generi | Right: | CARO - | | 09/15/ | [id number] | | [id number]: Qty: 1 | c | Knee | ZIMM | | 2022 | / | | on 11/12/2017 by Elmer, | | | | | | /[id number] | | Philippe Brody MD | | | | | | 0 | + +--------+--------+ +--------+--------+--------+ | Imp Knee Tib Bshng Poly Oss - | Generi | Right: | CARO - | | 09/10/ | [id number] | | [id number]: Qty: 1 | c | Knee | ZIMM | | 2022 | / | | on 11/12/2017 by Elmer, | | | | | | / | | Philippe Brody MD | | | | | | 0 | + +--------+--------+ +--------+--------+--------+ | Imp Knee Tib Bsplt Lng Oss 63 | Generi | Right: | CARO - | | 07/29/ | [id number] | | - [id number]: Qty: | c | Knee | ZIMM | | 2027 | / | | 1 on 11/12/2017 by Elmer, | | | | | | /[id number] | | Philippe Brody MD | | | | | | 0 | + +--------+--------+ +--------+--------+--------+ | Imp Knee Rev Tib Poly Oss | Generi | Right: | CARO - | | 06/21/ | [id number] | | 18mm - [id number]: | c | Knee | ZIMM | | 2021 | / | | Qty: 1 on 11/12/2017 by | | | | | | /[id number] | | Philippe Payne MD | | | | | | 0 | + +--------+--------+ +--------+--------+--------+ | Imp Knee Pin Lock Poly Oss - | Generi | Right: | CARO - | | 09/14/ | 798603 | | [id number]: Qty: 1 | c | Knee | ZIMM | | 2022 | / | | on 11/12/2017 by Elmer, | | | | | | / | | Philippe Brody MD | | | | | | 0 | + +--------+--------+ +--------+--------+--------+ | Imp Knee Resurf Oss 3cm Rt - | | Right: | CARO - | | 11/06/ | [id number] | | [id number]: Qty: 1 | | Knee | ZIMM | | 2024 | / | | on 11/12/2017 by Elmer, | | | | | | /[id number] | | Philippe Brody MD | | [...] [facility] | | | | | [facility] | | | | | [facility] - | | | | | LABORATORY | + +---------+ + + + + | Specimen | + + | Blood | + + + + + + + | Performing | Address | City/State/Zipcode | Phone Number | | Organization | | | | + + + + + | [facility] | [address] | [place], [place] | [phone] | | [facility] | | [address] | | | - LABORATORY | | | | + + + + + | [facility] | [address] | [place], [place] | | | [facility] | | [address] | | | - LABORATORY | | | | + + + + + , Urine, Qual (03/27/2018221) + + + + + | Component | Value | Ref Range | Performed At | + + + + + | HCG SCREEN, URINE | Negative | Negative | [facility] | | | | | [place] [address] | [place] | [phone] | | [facility] | | [address] | | | - LABORATORY | | | | + + + + + | [facility] | [address] | [place] | | | [facility] | | [address] | | | - LABORATORY | | | | + + + + + Drugs of Abuse, Screen, Urine (03/27/2018221) + + + + + | Component | Value | Ref Range | Performed At | + + + + + | Amphetamine Screen, | Negative | Negative | [facility] | | Urine | | | [facility] | | | | | CENTER - | | | | | LABORATORY | + + + + + | Barbiturates Screen, | Negative | Negative | [facility] | | Urine | | | [facility] | | | | [...] + | [facility] | [address] | [place] | [phone] | | [facility] | | [address] | | | - LABORATORY | | | | + + + + + | [facility] | [address] | [place], [place] | | | [facility] | | [address] | | | - LABORATORY | | [...] 0.00 | 0.00 - 0.01 K/uL | [facility] | | | | [...] + | [facility] | [address] | [place] | [phone] | | [facility] | | [address] | | | - LABORATORY | | | | + + + + + | [facility] | [address] | [place] | | | [facility] | | [address] | | | - LABORATORY | | [...] + | [facility] | [address] | [place], [place] | [phone] | | [facility] | | [address] | | | - LABORATORY | | | | + + + + + | [facility] | [address] | [place], [place] | | | [facility] | | [address] | | | - LABORATORY | | | | + + + + + Ethanol (03/27/2018221) + +-------+ + + | Component | Value | Ref Range | Performed At | + +-------+ + + | ALCOHOL, | <5 | <400 mg/dL | [facility] | | SERUM/PLASMA | | | [facility] | | | | [...] + | [facility] | [address] | [place] | [phone] | | [facility] | | [address] | | | - LABORATORY | | | | + + + + + | [facility] | [address] | [place] | | | [facility] | | [address] | | | - LABORATORY | | [...] + | [facility] | [address] | [place] | [phone] | | [facility] | | [address] | | | - LABORATORY | | | | + + + + + | [facility] | [address] | [place], [place] | | | [facility] | | [address] | | | - LABORATORY | | [...] + | [facility] | [address] | [place], [place] | [phone] | | [facility] | | [address] | | | - LABORATORY | | | | + + + + + | [facility] | [address] | [place], [place] | | | [facility] | | [address] | | | - LABORATORY | | [...] 16 | 7 - 18 mg/dL | [facility] | | | | | [facility] | | | | | CENTER - | | | | | LABORATORY | + + + + + | Creatinine | 0.56 (L) | 0.60 - 1.30 mg/dL | [facility] | | | | | [facility] | | | | | CENTER - | | | | | LABORATORY | + + + + + | eGFR if not | >60Comment: GLOMERULAR | >=60 mL/min/1.73m2 | [facility] | | CYMRO | FILTRATION | | [facility] | | | RATE,ESTIMATED mL/min | | CENTER - | | | /1.59l0Esln than 60 | | LABORATORY | | [...] [facility] | | | | | [facility] | | | | | CENTER - | | | | | LABORATORY | + + + + + | Bilirubin Total | 0.5Comment: This is an | 0.1 - 1.5 mg/dL | [facility] | | | appended report. These | | [facility] | | | results [...] + | [facility] | [address] | [place], [place] | [phone] | | [facility] | | [address] | | | - LABORATORY | | | | + + + + + | [facility] | [address] | [place], [place] | | | [facility] | | [address] | | | - LABORATORY | | | | + + + + + Troponin I (02/24/2018 0100)Only the most recent of 2 results within the time period is inc eric. + + + + + | Component | Value | Ref Range | Performed At | + + + + + | Troponin I | <0.01Comment: Reference | <0.06 ng/mL | [facility] | | | Ranges:0.00-0.06 = | [...] infarction. | | | | | [employer] | | | | | [...] + + | Performing | Address | City/[facility] | Phone Number | | Organization | | | | + + + + + | [facility] | [address] | [place] | [phone] | | [facility] | | [address] | | | - LABORATORY | | | | + + + + + | [facility] | [address] | [place] | | | [facility] | | [address] | | | - LABORATORY | | [...] | | | | SAGAR URIOSTEGUI MD ([id number]) | | | | | on 02/24/2018 [...] [place] | | | | | [facility] [...] + | [facility] | [address] | [place] | [phone] | | [facility] | | [address] | | | - LABORATORY | | | | + + + + + | [facility] | [address] | [place] | | | [facility] | | [address] | | | - LABORATORY | | [...] + | [facility] | [address] | [place], [place] | [phone] | | [facility] | | [address] | | | - LABORATORY | | | | + + + + + | [facility] | [address] | [place], [place] | | | [facility] | | [address] | | | - LABORATORY | | [...] + | [facility] | [address] | [place] | [phone] | | [facility] | | [address] | | | - LABORATORY | | | | + + + + + | [facility] | [address] | [place], [place] | | | [facility] | | [address] | | | - LABORATORY | | [...] | Granulocytes | patients, use | | [facility] | | | the special reference | | CENTER - | | | ranges listed below. | | LABORATORY | + + + + + | % nRBC | 0 | 0 - 2 per 100 WBC's | [facility] | | | | | [facility] | | | | | CENTER - | | | | | LABORATORY | + + + + + | Absolute nRBC | 0.00 | 0.00 - 0.01 K/uL | [facility] | | | | | [facility] [...] 0.003-0.091 K/uL 0.0-0.9% 2nd 0.007-0.247 K/uL | [facility] | | 0.1-2.0% 3rd 0.018-0.456 K/uL 0.1-2.0% | - LABORATORY | + + + + + + + + | Performing | Address | City/State/Zipcode | Phone Number | | Organization | | | | + + + + + | [facility] | [address] | [place] | [phone] | | [facility] | | [address] | | | - LABORATORY | | | | + + + + + | [facility] | [address] | [place] | | | [facility] | | [address] | | | - LABORATORY | | [...] + | [facility] | [address] | [place] | [phone] | | [facility] | | [address] | | | - LABORATORY | | | | + + + + + | [facility] | [address] | [place] | | | [facility] | | [address] | | | - LABORATORY | | | | + + + + + Lactate Dehydrogenase (02/22/2018 1037) + +-------+ + + | Component | Value | Ref Range | Performed At | + +-------+ + + | LDH TOTAL | 112 | 91 - 180 U/L | [facility] | | | | | [place] [...] + | [facility] | [address] | [place], [place] | [phone] | | [facility] | | [address] | | | - LABORATORY | | | | + + + + + | [facility] | [address] | [place], [place] | | | [facility] | | [address] | | | - LABORATORY | | [...] + | [facility] | [address] | [place] | [phone] | | [facility] | | [address] | | | - LABORATORY | | | | + + + + + | [facility] | [address] | [place] | | | [facility] | | [address] | | | - LABORATORY | | [...] +--------+ +---------+ | MEDICARE | MEDICA | [id number] | Medica | +1- | | | | RE | | re | 555 | | | | PART A | | | | | | | AND B | | | | | + +--------+ +--------+ +---------+ | MEDICAID [place] | MEDICA | [id number] | Medica | [phone] | | [...] al/Fam | | 1975 | +- | [place], [place] | | | mikayla | | | [address] | [address] | + +--------+ +--------+ + + | DESIRE GARRETT | Third | Self | [birth year] | Home: | [address] | | [place] | Republican | | 1975 | +- | [place], [place] | | | [place] | | | [address] | [address] | | | ity | | | | | + +--------+ +--------+ + +
--- OUTSIDE RECORDS SUMMARY | ~2018-05-17 | XMS | Encounter Summary ---
Demographics + + + | Address | [address] | | | [place] [address] | + + + | Home Phone | | + + + | Preferred Language | Unknown | + + + | Marital Status | Legally | + + + | Orthodox Affiliation | 1025 | + + + | Race | Unknown | + + + | Ethnic Group | Unknown | + + + Author + + + | Author | [facility] | | | and [place] | + + + | Organization | [facility] | | | and [place] | + + + | Address | Unknown | + + + | Phone | Unavailable | + + + Support + + + + + | Name | Relationship | Address | Phone | + + + + + | Mar Ahmadi | ECON | NA | | | | | [place] [address] | | + + + + + | Magdlaeno Vásquez | ECON | [address] | | | o | | [place] | | | | | [address] | | + + + + + Care Team Providers + +------+ + | Care Refrigeration Operator Name | Role | Phone | + [...] + | 03/30/ | Documentati | [facility] | Alyssia Perez, | Discharge Without | | 2019 | on | [facility] CTR THERAPY PT | PT [address] | Visit | | | | OP [address] | [place] | | | | | [place] | [id number] | | | | | [address] | | | | | | [phone] | | | +--------+ + + + [...] Notes Alyssia Perez, PT - [facility]30/2018 [facility] [address] [place] [address] Physical Therapy Discharge Note This discharge is [...] | | | | | | [address] | | | | | | [place] [address] | | | | | | [phone] | | | | | | | | +--------+ + + + + | 02/24/ | Appointment | Oncology | Guillermo, | | | 2018 | | | MD Prosper Coburn [address] | | | | | | [address] | | | | | | [place] [address] | | | | | | [phone] | | | | | | | | +--------+ + + + + as of this encounter Visit Diagnoses Not on filein this encounter"
[~2018-05-17 19:08] MED LIST: FELDENE20 MG PO; GLUCOPHAGE500 MG PO; ZOFRAN ODT4 MG PO
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
[2018-05-17] MEDS ORDERED: TRUVADA 200 MG1 EACH PO (23:08)
[2018-05-17] MEDS ORDERED: ISENTRESS400 MG PO (23:08)
== END 2018-05-17 23:29 | disposition home or self-care (01) ==
LOC: ED 19:08
DX: Z04.41 Encounter for examination and observation following alleged adult rape (principal)
CPT/HCPCS: 80069; 80076; 82977; 83615; 84703; 85025; 86703; 86706; 86707; 96372; 99284; 99284-25; J0696

== ENCOUNTER 2018-05-18 10:34 | Emergency (ER) | payer MEDICARE, OTHER ==
[~2018-05-18] VITALS: Ht 157.5 cm; Wt 133.4 kg
[~2018-05-18 10:34] MED LIST changes: +ISENTRESS400 MG PO; +TRUVADA 200 MG1 EACH PO
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
[2018-05-20] MEDS ORDERED: B-121000 MC2 PO (10:34)
[2018-05-20] MEDS ORDERED: METFORMIN HCL500 M2 PO (10:34)
[2018-05-20] MEDS ORDERED: VITAMIN D1000 UNIT PO (10:34)
[2018-05-20] MEDS ORDERED: DEPAKOTE500 MG PO (10:35)
[2018-05-20] MEDS ORDERED: ALTOPREV40 MG PO (10:35)
[2018-05-20] MEDS ORDERED: LATUDA60 MG PO (10:37)
== END 2018-05-20 15:54 | disposition short-term general hospital (02) ==
LOC: ED 10:34
DX: F31.9 Bipolar disorder, unspecified (principal); E11.9 Type 2 diabetes mellitus without complications; Z79.899 Other long term (current) drug therapy; Z79.84 Long term (current) use of oral hypoglycemic drugs
CPT/HCPCS: 81001; 96372; 99284-25; J2060; J3486

== ENCOUNTER 2018-06-04 19:29 | Emergency (ER) | payer MEDICARE, OTHER ==
[~2018-06-04] VITALS: Ht 157.5 cm; Wt 90.7 kg
--- OUTSIDE RECORDS SUMMARY | ~2018-06-04 | XMS | Encounter Summary ---
Demographics + + + | Address | [address] | | | [place] [address] | + + + | Home Phone | | + + + | Preferred Language | Unknown | + + + | Marital Status | Legally | + + + | Druze Affiliation | 1025 | + + + | Race | Unknown | + + + | Ethnic Group | Unknown | + + + Author + + + | Author | [facility] | | | and [place] | + + + | Organization | [facility] | | | and [place] | + + + | Address | Unknown | + + + | Phone | Unavailable | + + + Support + + + + + | Name | Relationship | Address | Phone | + + + + + | Mar Ahmadi | ECON | NA | | | | | [place] [address] | | + + + + + | Magdaleno Vásquez | ECON | [address] | | | o | | [place] | | | | | [address] | | + + + + + Care Team Providers + +------+ + | Care Dinkey Engineer Name | Role | Phone | + [...] + + | 03/27/ | Emergency | [facility] | Yemi Brian, | Bipolar I disorder, | | 2019 | | MED CTR EM[facility] | [address] | single manic | | | | CENTER [address] | [place], [place] | episode, severe, | | | | [place], [place] | [phone]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 | | | | | [facility] | | | | | CENTER - | | | | | LABORATORY | + +---------+ + + + + | Specimen | + + | Blood | + + + + + + + | Performing | Address | City/State/Zipcode | Phone Number | | Organization | | | | + + + + + | [facility] | [address] | [place] | [phone] | | [facility] | | [address] | | | - LABORATORY | | | | + + + + + | [facility] | [address] | [place], [place] | | | [facility] | | [address] | | | - LABORATORY | | | | + + + + + POC Glucose (03/27/2018845) + +---------+ + + | Component | Value | Ref Range | Performed At | + +---------+ + + | Glucose, POC | 201 (H) | 70 - 109 mg/dL | [facility] | | | | | [facility] | | | | | CENTER - | | | | | LABORATORY | + +---------+ + + + + | Specimen | + + | Blood | + + + + + + + | Performing | Address | City/State/Zipcode | Phone Number | | Organization | | | | + + + + + | [facility] | [address] | [place], [place] | [phone] | | [facility] | | [address] | | | - LABORATORY | | | | + + + + + | [facility] | [address] | [place], [place] | | | [facility] | | [address] | | | - LABORATORY | | | | + + + + + TSH (03/27/2018221) + + + + + | Component | Value | Ref Range | Performed At | + + + + + | TSH | 1.07Comment: This is a | 0.45 - 5.33 uIU/mL | [facility] | | | third generation TSH | | [facility] | | | test. | | [...] + | [facility] | [address] | [place] | [phone] | | [facility] | | [address] | | | - LABORATORY | | | | + + + + + | [facility] | [address] | [place], [place] | | | [facility] | | [address] | | | - LABORATORY | | | | + + + + + , Urine, Qual (03/27/2018221) + + + + + | Component | Value | Ref Range | Performed At | + + + + + | HCG SCREEN, URINE | Negative | Negative | [facility] | | | | | [facility] | | | | | CENTER [...] + | [facility] | [address] | [place], [place] | [phone] | | [facility] | | [address] | | | - LABORATORY | | | | + + + + + | [facility] | [address] | [place], [place] | | | [facility] | | [address] | | | - LABORATORY | | | | + + + + + Salicylate Level (03/27/2018221) + +-------+ + + | Component | Value | Ref Range | Performed At | + +-------+ + + | Salicylate Level | <4.0 | <30.0 mg/dL | [facility] | | | | | [facility] | | | | | CENTER [...] [address] | [place] | [phone] | | [facility] | | [address] | | | - LABORATORY | | | | + + + + + | [facility] | [address] | [place] | | | [facility] | | [address] | | | - LABORATORY | | | | + + + + + Acetaminophen Level (03/27/2018221) + +-------+ + + | Component | Value | Ref Range | Performed At | + +-------+ + + | Acetaminophen Level | <10 | <10 ug/mL | [facility] | | | | | [facility] | | | | | CENTER - | | | | | LABORATORY | + +-------+ + + + + | Specimen | + + | Blood | + + + + + + + | Performing | Address | City/State/Zipcode | Phone Number | | Organization | | | | + + + + + | [facility] | [address] | [place] | [phone] | | [facility] | | [address] | | | - LABORATORY | | | | + + + + + | [facility] | [address] | [place] | | | [facility] | | [address] | | | - LABORATORY | | | | + + + + + Ethanol (03/27/2018221) + +-------+ + + | Component | Value | Ref Range | Performed At | + +-------+ + + | ALCOHOL, | <5 | <400 mg/dL | [facility] | | SERUM/PLASMA | | | [facility] | | | | | CENTER - | | | | | LABORATORY | + +-------+ + + + + | Specimen | + + | Blood | + + + + + + + | Performing | Address | City/[facility] | Phone Number | | Organization | | | | + + + + + | [facility] | [address] | [place] | [phone] | | [facility] | | [address] | | | - LABORATORY | | | | + + + + + | [facility] | [address] | [place] | | | [facility] | | [address] | | | - LABORATORY | | | | + + + + + Drugs of Abuse, Screen, Urine (03/27/2018221) + + + + + | Component | Value | Ref Range | Performed At | + + + + + | Amphetamine Screen, | Negative | Negative | [facility] | | Urine | | | [facility] | | | | | CENTER - | | | | | LABORATORY | + + + + + | Barbiturates Screen, | Negative | Negative | [facility] | | Urine | | | [facility] | | | | | CENTER [...] + | [facility] | [address] | [place], [place] | [phone] | | [facility] | | [address] | | | - LABORATORY | | | | + + + + + | [facility] | [address] | [place], [place] | | | [facility] | | [address] | | | - LABORATORY | | [...] 16 | 7 - 18 mg/dL | [facility] | | | | | [facility] | | | | | CENTER - | | | | | LABORATORY | + + + + + | Creatinine | 0.56 (L) | 0.60 - 1.30 mg/dL | [facility] | | | | | [facility] | | | | | CENTER - | | | | | LABORATORY | + + + + + | eGFR if not | >60Comment: GLOMERULAR | >=60 mL/min/1.73m2 | [facility] | | GAMBIAN | FILTRATION | | [facility] | | | RATE,ESTIMATED mL/min | | CENTER - | | | /1.52d6Gblw than 60 | | LABORATORY | | [...] ST. | | Ratio | | | [facility] | | | | | CENTER - | | | | | LABORATORY | + + + + + | BUN/Creatinine Ratio | 28.6 | | [facility] | | | | | [facility] | | | | | CENTER [...] + | [facility] | [address] | [place] | [phone] | | [facility] | | [address] | | | - LABORATORY | | | | + + + + + | [facility] | [address] | [place] | | | [facility] | | [address] | | | - LABORATORY | | [...] [facility] | | | | | [facility] | | | | | CENTER [...] [facility] | | | | | [facility] | | | | | CENTER [...] ranges: Trim. Absolute (K/uL) Percentage (%) | [facility] | | 1st 0.003-0.091 K/uL 0.0-0.9% 2nd 0.007-0.247 K/uL [facility] | | 0.1-2.0% 3rd 0.018-0.456 K/uL 0.1-2.0% | - LABORATORY | + + + + + + + + | Performing | Address | City/State/Zipcode | Phone Number | | Organization | | | | + + + + + | [facility] | [address] | [place], [place] | [phone] | | [facility] | | [address] | | | - LABORATORY | | | | + + + + + | [facility] | [address] | [place], [place] | | | [facility] | | [address] | | | - LABORATORY | | [...]
--- OUTSIDE RECORDS SUMMARY | ~2018-06-04 | XMS | Encounter Summary ---
Demographics + + + | Address | [address] | | | [place] [address] | + + + | Home Phone | | + + + | Preferred Language | Unknown | + + + | Marital Status | Legally | + + + | Mu-Ism Affiliation | 1025 | + + + | Race | Unknown | + + + | Ethnic Group | Unknown | + + + Author + + + | Author | [facility] | | | and [place] | + + + | Organization | [facility] | | | and [place] | + + + | Address | Unknown | + + + | Phone | Unavailable | + + + Support + + + + + | Name | Relationship | Address | Phone | + + + + + | Mar Ahmadi | ECON | NA | | | | | [place] [address] | | + + + + + | Magdaleno Vásquez | ECON | [address] | | | o | | [place] | | | | | [address] | | + + + + + Care Team Providers + +------+ + | Care Hairspring Fabrication Supervisor Name | Role | Phone | + +------+ + | Barbara Hill MD | PCP | | + +------+ + Reason for Visit + + + | Reason | Comments | + + + | Discharge Without | | | Visit | | + + + Encounter Details +--------+ + + + + | Date | Type | Department | Care Team | Description | +--------+ + + + + | 03/30/ | Documentati | [facility] | Alyssia Perez, | Discharge Without | | 2019 | on | MED CTR THERAPY PT | PT [address] | Visit | | | | OP [address] | [place] | | | | | [place] | [address] | | | | | [address] | | | | | | [phone] | | | +--------+ + + + [...] encounter Progress Notes Alyssia Perez, PT - 03/30/2018 [facility] [address] [place] [address] Physical Therapy Discharge Note This discharge is associated with the evaluation completed on 12/04/17. Date: 03/30/2018 Patient Information Patient Name: Desire Ahmadi Date of : 1975 Age: 42 y.o. No diagnosis found. Date of Onset: No data was found Referring Provider: Reginaldo Barrios Total Number of Visits Completed: 14 Total Cancellations: 4 Total No Shows: 3 Patient has failed to return to therapy for further treatment. Goal status is unknown at th is time. This note serves as discharge from therapy. Patient was contacted/messages left but did not respond. At this time we find it necessary to discharge this patient from therapy services. The last progress note or the patients initial evaluation will serve as objective status fo r purposes of discharge. Electronically signed by: Alyssia Perez PT, 03/30/2018 16:35 Patient Name: Desire Ahmadi/: 1975/ in this [...] | | | | | | [place] [address] | | | | | | [phone] | | | | | | | | +--------+ + + + + | 02/24/ | Appointment | Oncology | Guillermo, | | | 2018 | | | MD [address] | | | | | | [address] | | | | | | [place] [address] | | | | | | [phone] | | | | | | | | +--------+ + + + + as of this encounter Visit Diagnoses Not on filein this encounter"
--- OUTSIDE RECORDS SUMMARY | ~2018-06-04 | XMS | Encounter Summary ---
Demographics + + + | Address | [address] | | | [place] [address] | + + + | Home Phone | | + + + | Preferred Language | Unknown | + + + | Marital Status | Legally | + + + | Oriental Orthodox Affiliation | 1025 | + + + | Race | Unknown | + + + | Ethnic Group | Unknown | + + + Author + + + | Author | [facility] | | | and [place] | + + + | Organization | [facility] | | | and [place] | + + + | Address | Unknown | + + + | Phone | Unavailable | + + + Support + + + + + | Name | Relationship | Address | Phone | + + + + + | Mar Ahmadi | ECON | NA | | | | | [place] [address] | | + + + + + | Magdaleno Vásquez | ECON | [address] | | | o | | [place] | | | | | [address] | | + + + + + Care Team Providers + +------+ + | Care Board Certified Arts Therapist Name | Role | Phone | + +------+ + | Barbara Hill MD | PCP | | + +------+ + Reason for Visit + + + | Reason | Comments | + + + | Breast Pain | | + + + Encounter Details +--------+ + + + + | Date | Type | Department | Care Team | Description | +--------+ + + + + | 06/03/ | Emergency | [facility] | Luke Meyer | Anxiety (Primary Dx) | | 2019 | | [facility] EM[facility] | Tanmay Stafford MD | | | | | CENTER [address] | [address] | | | | | [place] | [place] | | | | | [address] | [address] | | | | | [phone] | | | +--------+ + + + [...] this encounter Last Filed Vital Signs + +---------+ + | Vital Sign | Reading | Time Taken | + +---------+ + | Blood Pressure | 147/78 | 06/03/20181911 PDT | + +---------+ + | Pulse | 118 | 06/03/20181926 PDT | + +---------+ + | Temperature | - | - | + +---------+ + | Respiratory Rate | 24 | 06/03/20181926 PDT | + +---------+ + | Oxygen Saturation | 98% | 06/03/20181926 PDT | + +---------+ + | Inhaled Oxygen | - | - | | Concentration | | | + +---------+ + | Weight | - | - | + +---------+ + | Height | - | - | + +---------+ + | Body Mass Index | - | - | + +---------+ + in this encounter Discharge Instructions Luke Meyer MD - . Please follow the safety plan as discussed w ith the crisis response unit counselor 2. Do not drink alcohol or use drugs 3. Call [facility] at [phone] or return to the ER if you feel suicidal, homicidal o r unsafe [facility] has walk-in intake hours at their main office at [address] [place] [address]. They have two appointments at 8:30am and two at 10:00am. You must be there 30 minutes prio r to that to complete paperwork. in this encounter Medications at Time of [...] [address] | | | | | | [address] [place] | | | | | | [place] [address] | | | | | | [phone] | | | | | | | | +--------+ + + + + | 02/24/ | Appointment | Oncology | Guillermo, | | | 2018 | | | MD [address] | | | | | | [address] [place] | | | | | | [place] [address] | | | | | | [phone] | | | | | | | | +--------+ + + + + + +--------+ + + | Name | Priori | Associated Diagnoses | Date/Time | | | ty | | | + +--------+ + + | ED INFORMATION EXCHANGE | Routin | | 06/03/2018 1826 PDT | | | e | | | + +--------+ + + as of this encounter Procedures + +--------+ + + + | Procedure Name | Priori | Date/Time | Associated Diagnosis | Comments | | | ty | | | | + +--------+ + + + | ECG 12 LEAD | STAT | 06/03/2018 | | Results for this | | | | 1911 PDT | | procedure are in the | | | | | | results section. | + +--------+ + + + | ED INFORMATION | Routin | 06/03/2018 | | | | EXCHANGE | e | 1826 PDT | | | + +--------+ + + + +---+--------+ | | | | | Proced | | | ure | | | Note - | | | Ermelinda, | | | Lab In | | | | | | Hlseve | | | n - | | | | | | 2018 | | | 1827 | | | PDT | | | Format | | | ting | | | of | | | this | | | note | | | may be | | | | | | differ | | | ent | | | from | | | the | | | origin | | | al.COL | | | LECTIV | | | E18:[id number] | | | DESIRE | | | | | | [id number] | | | [id number] | | | Criter | | | ia Met | | | 4 | | | visits | | | in 60 | | | 3 | | | Facili | | | ties | | | in | | | 60Secu | | | rity | | | and | | | Safety | | | No | | | recent | | | | | | Securi | | | ty | | | Events | | | | | | curren | | | tly on | | | | | | fileED | | | Care | | | Guidel | | | inesTh | | | ere | | | are | | | curren | | | tly no | | | ED | | | Care | | | Guidel | | | buzz | | | for | | | this | | | patien | | | t. | | | Please | | | check | | | your | | | facili | | | ty's | | | medica | | | l | | | record | | | s | | | system | | | .Presc | | | riptio | | | n Drug | | | | | | Report | | | (12 | | | Mo.)PD | | | MP | | | query | | | found | | | no | | | report | | | .E.D. | | | Visit | | | Count | | | (12 | | | mo.)Fa | | | cility | | | | | | Visits | | | Low | | | Acuity | | | Good | | | Shephe | | | rd | | | Health | | | 1 0 | | | Provid | | | ence | | | St. | | | [facility] | | | Medica | | | l | | | Center | | | 4 0 | | | [facility] | [facility] | | | y | | | Hospit | | | al 2 0 | | | Total | | | 7 0 | | | Note: | | | Visits | | | | | | indica | | | te | | | total | | | known | | | visits | | | . | | | Medica | | | id Low | | | | | | Acuity | | | Dx | | | are | | | the | | | number | | | of | | | primar | | | y | | | diagno | | | ses on | | | the | | | Medica | | | id's | | | Low | | | Acuity | | | dx | | | list. | | | | | | Recent | | | | | | Emerge | | | ncy | | | Depart | | | ment | | | Visit | | | [place] | | | yDate | | | Facili | | | ty | | | City | | | State | | | Type | | | Diagno | | | ses or | | | Chief | | | | | | Compla | | | int | | | Mar | | | 14, | | | 2019 | | | Provid | | | ence | | | St. | | | [facility] | | | [place] | | | [place] | | | Emerge | | | ncy | | | ems | | | in | | | lobby | | | Mar | | | 1, | | | 2019 | | | Good | | | [facility] | | | rd | | | Health | | | | | | [place] | | | Emerge | | | ncy | | | | | | MENTAL | | | | | | HEALTH | | | | | | Brief | | | psycho | | | tic | | | disord | | | er | | | Schizo | | | phreni | | | a, | | | unspec | | | ified | | | Feb | | | 26, | | | 2019 | | | [facility] | | | y H. | | | [place] | | | [place] | | | Emerge | | | ncy | | | | | | Bipola | | | r | | | disord | | | er, | | | unspec | | | ified | | | | | | Type 2 | | | | | | diabet | | | es | | | mellit | | | us | | | withou | | | t | | | compli | | | cation | | | s | | | Long | | | term | | | (curre | | | nt) | | | use of | | | oral | | | hypogl | | | ycemic | | | drugs | | | | | | Other | | | long | | | term | | | (curre | | | nt) | | | drug | | | therap | | | y Feb | | | 25, | | | 2019 | | | [facility] | [facility] | [facility] | | | y H. | | | [place] | | | [place] | | | Emerge | | | ncy | | | Chief | | | Compla | | | int: | | | ASSAUL | | | T/MEDI | | | YULISSA | | | CLEARA | | | NCE | | | Feb | | | 13, | | | 2019 | | | Provid | | | ence | | | St. | | | [facility] | | | [place] | | | [place] | | | Emerge | | | ncy | | | rt | | | side | | | pain | | | assaul | | | t | | | Assaul | | | t | | | Strain | | | of | | | muscle | | | , | | | fascia | | | and | | | tendon | | | of | | | lower | | | back, | | | initia | | | l | | | encoun | | | ter | | | | | | Strain | | | of | | | muscle | | | and | | | tendon | | | of | | | unspec | | | ified | | | wall | | | of | | | thorax | | | , | | | initia | | | l | | | encoun | | | ter | | | | | | Strain | | | of | | | muscle | | | , | | | fascia | | | and | | | tendon | | | at | | | neck | | | level, | | | | | | initia | | | l | | | encoun | | | ter | | | | | | Contus | | | ion of | | | right | | | hip, | | | initia | | | l | | | encoun | | | ter | | | Jose 5, | | | 2019 | | | Provid | | | ence | | | [facility] | | | [facility] | | | [place] | | | [place] | | | Emerge | | | ncy | | | | | | Mental | | | | | | Health | | | Eval | | | | | | Mental | | | | | | Health | | | | | | Proble | | | m | | | Manic | | | episod | | | e, | | | severe | | | with | | | psycho | | | tic | | | sympto | | | ms | | | Encoun | | | ter | | | for | | | other | | | genera | | | l | | | examin | | | ation | | | Dec | | | 4, | | | 2018 | | | Provid | | | ence | | | St[facility] | | | [facility] | | | [place] | | | [place] | | | Emerge | | | ncy | | | CP | | | Chest | | | Pain | | | | | | Chest | | | pain, | | | unspec | | | ified | | | | | | Recent | | | | | | Inpati | | | ent | | | Visit | | | [facility] | | | yDate | | | Facili | | | ty | | | City | | | State | | | Type | | | Diagno | | | ses or | | | Chief | | | | | | Compla | | | int | | | Aug | | | 23, | | | 2018 | | | Provid | | | ence | | | St[facility] | | | [facility] | | | [place] 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 | | | al | | | joint | | | prosth | | | esis, | | | other | | | site, | | | initia | | | l | | | encoun | | | ter | | | | | | Presen | | | ce of | | | unspec | | | ified | | | artifi | | | cial | | | knee | | | joint | | | Care | | | Provid | | | ersPro | | | vider | | | PRC | | | Type | | | Phone | | | Fax | | | Servic | | | e | | | Dates | | | ELENITA | | | , | | | BARBARA | | | , MD | | | Family | | | | | | Medici | | | ne | | | [phone] | | | [phone] | | | 50 | | | [phone] | | | [phone] | | | 49 | | | Curren | | | t | | | LEGACY | | | | | | [facility] | | | L | | | MEDICA | | | L | | | CENTER | | | | | | Primar | | | y Care | | | | | | [phone] | | | [phone] | | | 11 | | | Curren | | | t | | | BARBARA | | | D | | | ELENITA | | | | | | Primar | | | y Care | | | (509) | | | | | | [phone] | | | 50 | | | Curren | | | t | | | Collec | | | tive | | | Portal | | | This | | | patien | | | t has | | | regist | | | ered | | | at the | | | | | | Provid | | | ence | | | St. | | | [facility] | | | Medica | | | l | | | Center | | | | | | Emerge | | | ncy | | | Depart | | | ment | | | For | | | more | | | inform | | | ation | | | visit: | | | | | | https: | | | //secu | | | [email or web address] | | | ecarep | | | maxim.co | | | m/hiwot | | | ent/ee | | | [id number] | | | -[phone]- | | | [phone] | | | [email or web address] | | | [phone] | | | c17c | | | The | | | above | | | inform | | | ation | | | is | | | provid | | | ed for | | | the | | | sole | | | purpos | | | e of | | | patien | | | t | | | treatm | | | ent. | | | Use of | | | this | | | inform | | | ation | | | beyond | | | the | | | terms | | | of | | | Data | | | Sharin | | | g | | | Memora | | | ndum | | | of | | | Unders | | | tandin | | | g and | | | Licens | | | e | | | Agreem | | | ent is | | | | | | prohib | | | ited. | | | In | | | certai | | | n | | | cases | | | not | | | all | | | visits | | | may | | | be | | | repres | | | ented. | | | | | | Consul | | | t the | | | aforem | | | ention | | | ed | | | facili | | | ties | | | for | | | additi | | | onal | | | inform | | | ation. | | | 2018 | | | [employer] | | | tive | | | [employer] | | | l | | | [employer] | | | [employer] | | | [employer] | | | - | | | [place] | | | Cat | | | [place], | | | [place] - | | | [email or web address] | | | ollect | | | ivemed | | | icalte | | | [email or web address] | | | | +---+--------+ in this encounter Results ECG 12 lead (06/03/[id number]) + + + + + | Component | Value | Ref Range | Performed At | + + + + + | VENTRICULAR RATE EKG | 112 | BPM | [facility] | + + + + + | ATRIAL RATE | 112 | BPM | [facility] | + + + + + | P-R INTERVAL | 142 | ms | [facility] | + + + + + | QRS DURATION | 94 | ms | [facility] | + + + + + | Q-T INTERVAL | 344 | ms | [facility] | + + + + + | Q-T INTERVAL | 469 | ms | [facility] | | (CORRECTED) | | | | + + + + + | P WAVE AXIS | 66 | degrees | [facility] | + + + + + | QRS AXIS | 12 | degrees | [facility] | + + + + + | T AXIS | 74 | degrees | [facility] | + + + + + | INTERPRETATION TEXT | Sinus | | [facility] | | | tachycardiaOtherwise | | | | | normal ECGWhen compared | | | | | with ECG of 24-FEB-2018 | | | | | 00:49,No significant | | | | | change was | | | | | foundConfirmed by | | | | | JOSETTE CARSON MD | | | | | ([id number]) on 06/04/2018 | | | | | 3:32:51 PM | | | + + + + [...] + | Diagnosis | + + | Anxiety - Primary | + + | Anxiety state, unspecified | + +"
--- OUTSIDE RECORDS SUMMARY | ~2018-06-04 | XMS | Clinical Summary ---
Demographics + + + | Address | [address] | | | [place] [address] | + + + | Home Phone | | + + + | Preferred Language | Unknown | + + + | Marital Status | | + + + | Mosque Affiliation | JEH | + + + [...] Team Providers + +------+ + | Care Manager Line Name | Role | Phone | + +------+ + | Barbara Hill MD | PP | | + +------+ + Source Comments NATASHA is fully live on both [facility] Ambulatory and [facility] InPatient.[facility] Allergies No Known Allergies Current Medications + [...] + | DM type 2 without retinopathy ([facility]) | 08/02/2015 | + + + [...] Morbid obesity with BMI of 50.0-59.9, adult ([facility]) | 05/11/19 | | | | [...] - | | | | | | /[id number] | | [id number]: Qty: 2 on | | | | [...] | | n | | | | /[id number] | | | | | | | [...] & | | re | [address] | [place] [address] | | | B | | | | | + +--------+ +--------+ + + | [employer] MEDICA[employer] | SVP OF DIGITAL | xxxxxxxx | Medica | | | [...] | [birth year] | Home: | [address] | | A | al/[place] | | [phone] | [phone] [place] | | | mikayla | | | [phone] | [phone] | + +--------+ +--------+ + +
--- OUTSIDE RECORDS SUMMARY | ~2018-06-04 | XMS | Clinical Summary ---
Demographics + + + | Address | [address] | | | [place] [address] | + + + | Home Phone | | + + + | Preferred Language | Unknown | + + + | Marital Status | Legally | + + + | Latter-Day Affiliation | 1025 | + + + | Race | Unknown | + + + | Ethnic Group | Unknown | + + + Author + + + | Author | [facility] | | | and [place] | + + + | Organization | [facility] | | | and [place] | + + + | Address | Unknown | + + + | Phone | Unavailable | + + + Support + + + + + | Name | Relationship | Address | Phone | + + + + + | Mar Garrett | ECON | NA | | | | | [place] [address] | | + + + + + | Magdaleno Vásquez | ECON | [address] | | | o | | [place] | | | | | [address] | | + + + + + Care Team Providers + +------+ + | Care Intel Recruiter Name | Role | Phone | + [...] bariatric surgery. Recent labs obtained by her regional manager's | | are reassurance regarding her [...] Bypass October 08, 2015 at | | [facility].2. Patient continues to menstruate regularly following | | bypass surgery. 3. Iron Studies at [facility] January 04, 2016; Iron 47 | | ug/dl, TIBC 441 ug/dl, Saturation 11 %, Ferritin 15 ng/ml.4. | | Ferrlecit 125 mg iv weekly x 4 January,.5. Iron Studies at | | [facility] July 07, 2016; Iron | | 45 [...] + + + + | Bipolar disorder ([facility]) | 01/14/2011 | + + + + [...] | Obesity, morbid, BMI 50 or higher ([facility]) | 08/14/2004 | + + + + + | Overview: Overview: | | BMI 54.8 | | | | Last Assessment & Plan: | | DOing well post bariatric surgery. Keep follow up in [place], | | | | Overview: | | BMI 54.8 | | | | Last Assessment & Plan: | | DOing well post bariatric surgery. Keep follow up in [place], | + + Encounters +--------+ + + + + | Date | Type | Specialty | Care Team | Description | +--------+ + + + + | 06/03/ | Emergency | | Luke Meyer | Anxiety (Primary Dx) | | 2019 | | | Tanmay Stafford MD | | +--------+ + + + + | 05/05/ | Emergency | | Darrion Locke, | Strain of neck | | 2018 | | | MD | muscle, initial [...] Brian, | Bipolar I disorder, | | 2018 | | | MD Fuentes, | single manic | | | | | Luke Baugh MD | episode, severe, | | | | | | with psychosis (HCC) | | | | | | (Primary Dx); | | | | | | Medical clearance | | | | | | for psychiatric | | | | | | admission | +--------+ + + + + from [...] + + + | Blood Pressure | 147/78 | 06/03/20181911 PDT | + + + + | Pulse | 118 | 06/03/20181926 PDT | + + + + | Temperature | 37.2 C (99 F) | 05/05/20181 PST | + + + + | Respiratory Rate | 24 | 06/03/20181926 PDT | + + + + | Oxygen Saturation | 98% | 06/03/20181926 PDT | + + + + | Inhaled Oxygen | - | - | | Concentration | | | + + + + | Weight | 92.5 kg (204 lb) | 05/05/2018100 PST | + + + + | Height | 157.5 cm (5' 2") | 12/29/2017 1325 PDT | + + + + | Body Mass Index | 37.31 | 05/05/2018100 PST | + + + + Plan of Treatment +--------+ + + + + | Date | Type | Specialty | Care Team | Description | +--------+ + + + + | 08/05/ | Office | | Kev Dumont | | | 2018 | Visit | | MD Prosper Liu [address] | | | | | | [address] [place] | | | | | | [place] [address] | | | | | | [phone] | | | | | | | | +--------+ + + + + | 02/24/ | Appointment | | Guillermo, | | | 2018 | | | Luke Antony MD [address] | | | | | [address] [place] | | | | | | [place] [address] | | | | | | [phone] | | | | | | | [...] + +--------+--------+ +--------+--------+--------+ | Imp Knee Stem [place] Por | Generi | Right: | CARO - | | 09/09/ | [id number] | | 12.5x150 - | c | Knee | ZIMM | | 2027 | / | | [id number]: Qty: 1 | | | | | | /[id number] | | on 11/12/2017 by Elmer, | | | | | | 0 | | Philippe Brody MD | | | | | | | + +--------+--------+ +--------+--------+--------+ | Tee Bone Palacos-R 40gm - | Generi | Right: | CARO - | | 04/22/ | 00-111 | | [id number]: Qty: 2 | c | Knee | ZIMM | | 2022 | 2-140- | | on 11/12/2017 by Elmer, | | | | | | 01 / | | Philippe Brody MD | | | | | | /[id number] | | | | | | | | 767 | + +--------+--------+ +--------+--------+--------+ | Imp Knee Femur Axle Oss - | Generi | Right: | CARO - | | 09/30/ | [id number] | | [id number]: Qty: 1 | c | Knee | ZIMM | | 2027 | / | | on 11/12/2017 by Elmer, | | | | | | /[id number] | | Philippe Brody MD | | | | | | 0 | + +--------+--------+ +--------+--------+--------+ | Imp Knee Yoke Reinf Oss - | Generi | Right: | CARO - | | 10/28/ | [id number] | | [id number]: Qty: 1 | c | Knee | ZIMM | | 2027 | / | | on 11/12/2017 by Elmer, | | | | | | /[id number] | | Philippe Brody MD | | | | | | 0 | + +--------+--------+ +--------+--------+--------+ | Imp Knee Fem Bshng Poly Oss - | Generi | Right: | CARO - | | 09/15/ | [id number] | | [id number]: Qty: 1 | c | Knee | ZIMM | | 2022 | / | | on 11/12/2017 by Elmer, | | | | | | / | | Philippe Brody MD | | | | | | 0 | + +--------+--------+ +--------+--------+--------+ | Imp Knee Tib Bshng Poly Oss - | Generi | Right: | CARO - | | 09/10/ | [id number] | | [id number]: Qty: 1 | c | Knee | ZIMM | | 2022 | / | | on 11/12/2017 by Elmer, | | | | | | / | | Philippe Brody MD | | | | | | 0 | + +--------+--------+ +--------+--------+--------+ | Imp Knee Tib Bsplt Lng Oss 63 | Generi | Right: | CARO - | | 07/29/ | [id number] | | - [id number]: Qty: | c | Knee | ZIMM | | 2027 | / | | 1 on 11/12/2017 by Elmer, | | | | | | /[id number] | | Philippe Brody MD | | | | | | 0 | + +--------+--------+ +--------+--------+--------+ | Imp Knee Rev Tib Poly Oss | Generi | Right: | CARO - | | 06/21/ | [id number] | | 18mm - [id number]: | c | Knee | ZIMM | | 2021 | / | | Qty: 1 on 11/12/2017 by | | | | | | /[id number] | | Philippe Payne MD | | | | | | 0 | + +--------+--------+ +--------+--------+--------+ | Imp Knee Pin Lock Poly Oss - | Generi | Right: | CARO - | | 09/14/ | 884195 | | [id number]: Qty: 1 | c | Knee | ZIMM | | 2022 | / | | on 11/12/2017 by Elmer, | | | | | | / | | Philippe Brody MD | | | | | | 0 | + +--------+--------+ +--------+--------+--------+ | Imp Knee Resurf Oss 3cm Rt - | | Right: | CARO - | | 11/06/ | 652145 | | [id number]: Qty: 1 | | Knee | ZIMM | | 2024 | / | | on 11/12/2017 by Elmer, | | | | | | /[id number] | | Philippe Brody MD | | [...] | | n - | | | 03/14/ | | | 2019 | | | 1827 | | | [...] DESIRE | | | | | | [id number] | | | [id number] | | | Criter | | | [...] | | | St. | | | [place] | | | y | | | [...] | | | St. | | | [place] | | | y H. | | [...] | | | St. | | | [place] | | | y H. 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 | | | 2019 | | | Collec | | | [...] | [email or web address] | | | | +---+--------+ + +--------+ +---+ + | POC GLUCOSE | Routin | 03/27/2018 | | Results for this | | | e | 1211 PST | | procedure are in the | | | | | | results section. | + +--------+ +---+ + | POC GLUCOSE | Routin | 03/27/2018 | | Results for this | | | e | 0846 PST | | procedure are in the | | | | | | results section. | + +--------+ +---+ + | TSH | STAT | 03/27/2018 | | Results for this | | | | 2 PST | | procedure are in the | | | | | | results section. | + +--------+ +---+ + | HCG, URINE, QUAL | STAT | 03/27/2018 | | Results for this | | | | 2 PST | | procedure are in the | | | | | | results section. | + +--------+ +---+ + | SALICYLATE LEVEL | STAT | 03/27/2018 | | Results for this | | | | 0222 PST | | procedure are in the | | | | | | results section. | + +--------+ +---+ + | ACETAMINOPHEN LEVEL | STAT | 03/27/2018 | | Results for this | | | | 0222 PST | | procedure are in the | | | | | | results section. | + +--------+ +---+ + | ALCOHOL | STAT | 03/27/2018 | | Results for this | | | | 0222 PST | | procedure are in the | | | | | | results section. | + +--------+ +---+ + | DRUGS OF ABUSE, | STAT | 03/27/2018 | | Results for this | | SCREEN, URINE | | 0222 PST | | procedure are in the | | | | | | results section. | + +--------+ +---+ + | COMPREHENSIVE | STAT | 03/27/2018 | | Results for this | | METABOLIC PANEL | | 0222 PST | | procedure are in the | | | | | | results section. | + +--------+ +---+ + | CBC WITH | STAT | 03/27/2018 | | Results for this | | DIFFERENTIAL | | 2 PST | | procedure are in the | | | | | | results section. | + +--------+ +---+ + from Last 3 Months Results ECG 12 lead (06/03/20181910) + + [...] foundConfirmed by | | | | | ALLI PIERRE, JOSETTE | | | | | ([id number]) on 06/04/2018 | | | | | [...] | | | + +---------+ + + POC Glucose (03/27/2018 1211)Only the most recent of 2 results within the time period is in cluded. + +---------+ + + | Component | Value | Ref Range | Performed At | + +---------+ + + | Glucose, POC | 235 (H) | 70 - 109 mg/dL | [facility] | | | | | [facility] | | | | | CENTER - | | | | | LABORATORY | + +---------+ + + + + | Specimen | + + | Blood | + + + + + + + | Performing | Address | City/State/Zipcode | Phone Number | | Organization | | | | + + + + + | [facility] | [address] | [place] | [phone] | | [facility] | | [address] | | | - LABORATORY | | | | + + + + + | [facility] | [address] | [place] | | | [facility] | | [address] | | | - LABORATORY | | | | + + + + + , Urine, Qual (03/27/2018221) + + + + + | Component | Value | Ref Range | Performed At | + + + + + | HCG SCREEN, URINE | Negative | Negative | [facility] | | | | | [facility] | | | | | CENTER [...] | + + + + + | [facility] | [address] | [place], [place] | [phone] | | [facility] | | [address] | | | - LABORATORY | | | | + + + + + | [facility] | [address] | [place], [place] | | | [facility] | | [address] | | | - LABORATORY | | | | + + + + + Drugs of Abuse, Screen, Urine (03/27/2018221) + + + + + | Component | Value | Ref Range | Performed At | + + + + + | Amphetamine Screen, | Negative | Negative | [facility] | | Urine | | | [facility] | | | | | CENTER - | | | | | LABORATORY | + + + + + | Barbiturates Screen, | Negative | Negative | [facility] | | Urine | | | [facility] | | | | | CENTER - | | | | | LABORATORY | + + + + + | Benzodiazepines | Positive (A) | Negative | [facility] | | Screen, Urine | | | [facility] | | | | | CENTER - | | | | | LABORATORY | + + + + + | Cannabinoids Screen, | Negative | Negative | [facility] | | Urine | | | [facility] | | | | | CENTER - | | | | | LABORATORY | + + + + + | Cocaine Screen, | Negative | Negative | [facility] | | Urine | | | [facility] | | | | | CENTER - | | | | | LABORATORY | + + + + + | Methadone Screen, | Negative | Negative | [facility] | | Urine | | | [facility] | | | | | CENTER - | | | | | LABORATORY | + + + + + | Opiates Screen, | Negative | Negative | [facility] | | Urine | | | [facility] | | | | | CENTER [...] + | [facility] | [address] | [place], [place] | [phone] | | [facility] | | [address] | | | - LABORATORY | | | | + + + + + | [facility] | [address] | [place], [place] | | | [facility] | | [address] | | | - LABORATORY | | | | + + + + + CBC with Differential (03/27/2018221) + + + + + | Component | Value | Ref Range | Performed At | + + + + + | WBC | 10.2 | 4.0 - 11.0 K/uL | [facility] | | | | | [facility] | | | | | CENTER - | | | | | LABORATORY | + + + + + | RBC | 4.66 | 3.70 - 5.20 M/uL | [facility] | | | | | [facility] | | | | | CENTER - | | | | | LABORATORY | + + + + + | Hemoglobin | 13.7 | 11.5 - 16.0 g/dL | [facility] | | | | | [facility] | | | | | CENTER - | | | | | LABORATORY | + + + + + | Hematocrit | 41.9 | 34.0 - 47.0 % | [facility] | | | | | [facility] | | | | | CENTER - | | | | | LABORATORY | + + + + + | MCV | 89.9 | 83.0 - 101.0 fL | [facility] | | | | | [facility] | | | | | CENTER - | | | | | LABORATORY | + + + + + | MCH | 29.4 | 28.0 - 35.0 pg | [facility] | | | | | [facility] | | | | | CENTER - | | | | | LABORATORY | + + + + + | MCHC | 32.7 | 32.0 - 36.0 g/dL | [facility] | | | | | [facility] | | | | | CENTER - | | | | | LABORATORY | + + + + + | RDW-CV | 12.3 | <15.0 % | [facility] | | | | | [facility] | | | | | CENTER - | | | | | LABORATORY | + + + + + | RDW-SD | 40.8 | 35.1 - 46.3 fL | [facility] | | | | | [facility] | | | | | CENTER - | | | | | LABORATORY | + + + + + | Platelet Count | 367 | 140 - 440 K/uL | [facility] | | | | | [facility] | | | | | CENTER - | | | | | LABORATORY | + + + + + | MPV | 8.9 | 6.5 - 12.4 fL | [facility] | | | | | [facility] | | | | | CENTER - | | | | | LABORATORY | + + + + + | % Neutrophils | 81.3 | 45.0 - 82.0 % | [facility] | | | | | [facility] | | | | | CENTER - | | | | | LABORATORY | + + + + + | % Lymphocytes | 13.4 (L) | 20.0 - 45.0 % | [facility] | | | | | [facility] | | | | | CENTER - | | | | | LABORATORY | + + + + + | % Monocytes | 4.5 | 4.0 - 12.0 % | [facility] | | | | | [facility] | | | | | CENTER - | | | | | LABORATORY | + + + + + | % Eosinophils | 0.2 | 0.0 - 5.0 % | [facility] | | | | | [facility] | | | | | CENTER - | | | | | LABORATORY | + + + + + | % Basophils | 0.2 | 0.0 - 1.0 % | [facility] | | | | | [facility] | | | | | CENTER - | | | | | LABORATORY | + + + + + | % Immature | 0.4Comment: For | 0.0 - 0.4 % | [facility] | | Granulocytes | patients, use the | | [facility] | | | special reference ranges | | CENTER - | | | listed below. | | LABORATORY | + + + + + | Absolute Neutrophils | 8.30 | 1.80 - 8.50 K/uL | [facility] | | | | | [facility] | | | | | CENTER - | | | | | LABORATORY | + + + + + | Absolute Lymphocytes | 1.37 | 0.60 - 3.20 K/uL | [facility] | | | | | [facility] | | | | | CENTER - | | | | | LABORATORY | + + + + + | Absolute Monocytes | 0.46 | 0.00 - 1.00 K/uL | [facility] | | | | | [facility] | | | | | CENTER - | | | | | LABORATORY | + + + + + | Absolute Eosinophils | 0.02 | 0.00 - 0.40 K/uL | [facility] | | | | | [facility] | | | | | CENTER - | | | | | LABORATORY | + + + + + | Absolute Basophils | 0.02 | 0.00 - 0.10 K/uL | [facility] | | | | | [facility] | | | | | CENTER - | | | | | LABORATORY | + + + + + | Absolute Immature | 0.04 (H)Comment: For | 0.00 - 0.03 K/uL | [facility] | | Granulocytes | patients, use | | [facility] | | | the special reference | | CENTER - | | | ranges listed below. | | LABORATORY | + + + + + | % nRBC | 0 | 0 - 2 per 100 WBC's | [facility] | | | | | [facility] | | | | | CENTER - | | | | | LABORATORY | + + + + + | Absolute nRBC | 0.00 | 0.00 - 0.01 K/uL | [facility] | | | | | [facility] | | | | | CENTER [...] Trim. Absolute (K/uL) Percentage (%) | [facility] | | 1st 0.003-0.091 K/uL 0.0-0.9% 2nd 0.007-0.247 K/uL | [facility] | | 0.1-2.0% 3rd 0.018-0.456 K/uL 0.1-2.0% | - LABORATORY | + + + + + + + + | Performing | Address | City/State/Zipcode | Phone Number | | Organization | | | | + + + + + | [facility] | [address] | [place] | [phone] | | [facility] | | [address] | | | - LABORATORY | | | | + + + + + | [facility] | [address] | [place] | | | [facility] | | [address] | | | - LABORATORY | | | | + + + + + TSH (03/27/2018221) + + + + + | Component | Value | Ref Range | Performed At | + + + + + | TSH | 1.07Comment: This is a | 0.45 - 5.33 uIU/mL | [facility] | | | third generation TSH | | [facility] | | | test. | | [...] + | [facility] | [address] | [place], [place] | [phone] | | [facility] | | [address] | | | - LABORATORY | | | | + + + + + | [facility] | [address] | [place] | | | [facility] | | [address] | | | - LABORATORY | | | | + + + + + Ethanol (03/27/2018221) + +-------+ + + | Component | Value | Ref Range | Performed At | + +-------+ + + | ALCOHOL, | <5 | <400 mg/dL | [facility] | | SERUM/PLASMA | | | [facility] | | | | | CENTER - | | | | | LABORATORY | + +-------+ + + + + | Specimen | + + | Blood | + + + + + + + | Performing | Address | City/State/Zipcode | Phone Number | | Organization | | | | + + + + + | [facility] | [address] | [place] | [phone] | | [facility] | | [address] | | | - LABORATORY | | | | + + + + + | [facility] | [address] | [place] | | | [facility] | | [address] | | | - LABORATORY | | | | + + + + + Acetaminophen Level (03/27/2018221) + +-------+ + + | Component | Value | Ref Range | Performed At | + +-------+ + + | Acetaminophen Level | <10 | <10 ug/mL | [facility] | | | | | [facility] | | | | | CENTER - | | | | | LABORATORY | + +-------+ + + + + | Specimen | + + | Blood | + + + + + + + | Performing | Address | City/State/Zipcode | Phone Number | | Organization | | | | + + + + + | [facility] | [address] | [place] | [phone] | | [facility] | | [address] | | | - LABORATORY | | | | + + + + + | [facility] | [address] | [place] | | | [facility] | | [address] | | | - LABORATORY | | | | + + + + + Salicylate Level (03/27/2018221) + +-------+ + + | Component | Value | Ref Range | Performed At | + +-------+ + + | Salicylate Level | <4.0 | <30.0 mg/dL | [facility] | | | | | [facility] | | | | | CENTER - | | | | | LABORATORY | + +-------+ + + + + | Specimen | + + | Blood | + + + + + + + | Performing | Address | City/State/Zipcode | Phone Number | | Organization | | | | + + + + + | [facility] | [address] | [place] | [phone] | | [facility] | | [address] | | | - LABORATORY | | | | + + + + + | [facility] | [address] | [place] | | | [facility] | | [address] | | | - LABORATORY | | | | + + + + + Comprehensive Metabolic Panel (03/27/2018221) + + + + + | Component | Value | Ref Range | Performed At | + + + + + | Na | 132 (L) | 136 - 149 mmol/L | [facility] | | | | | [facility] | | | | | CENTER - | | | | | LABORATORY | + + + + + | K | 4.2 | 3.5 - 5.1 mmol/L | [facility] | | | | | [facility] | | | | | CENTER - | | | | | LABORATORY | + + + + + | Cl | 97 (L) | 98 - 109 mmol/L | [facility] | | | | | [facility] | | | | | CENTER - | | | | | LABORATORY | + + + + + | CO2 | 22 (L) | 24 - 31 mmol/L | [facility] | | | | | [facility] | | | | | CENTER - | | | | | LABORATORY | + + + + + | Anion Gap | 13 | 3 - 16 mmol/L | [facility] | | | | | [facility] | | | | | CENTER - | | | | | LABORATORY | + + + + + | Glucose | 378 (H) | 70 - 109 mg/dL | [facility] | | | | | [facility] | | | | | CENTER - | | | | | LABORATORY | + + + + + | BUN | 16 | 7 - 18 mg/dL | [facility] | | | | | [facility] | | | | | CENTER - | | | | | LABORATORY | + + + + + | Creatinine | 0.56 (L) | 0.60 - 1.30 mg/dL | [facility] | | | | | [facility] | | | | | CENTER - | | | | | LABORATORY | + + + + + | eGFR if not | >60Comment: GLOMERULAR | >=60 mL/min/1.73m2 | [facility] | | INDONESIAN | FILTRATION | | [facility] | | | RATE,ESTIMATED mL/min | | CENTER - | | | /1.30u6Enqh than 60 | | LABORATORY | | [...] 9.8 | 8.3 - 10.5 mg/dL | [place]. | | | | | [facility] | | | | | CENTER - | | | | | LABORATORY | + + + + + | Albumin | 4.0 | 3.2 - 5.0 g/dL | [place]. | | | | | [facility] | | | | | CENTER - | | | | | LABORATORY | + + + + + | Bilirubin Total | 0.5Comment: This is an | 0.1 - 1.5 mg/dL | [facility] | | | appended report. These | | [facility] | | | results have been | | CENTER - | | | appended to a previously | | LABORATORY | | | preliminary verified | | | | | report. | | | + + + + + | Total Protein | 7.6 | 6.0 - 7.8 g/dL | [facility] | | | | | [facility] | | | | | CENTER - | | | | | LABORATORY | + + + + + | AST | 21Comment: This is an | 10 - 42 U/L | [facility] | | | appended report. These | | [facility] | | | results have been | | CENTER - | | | appended to a previously | | LABORATORY | | | preliminary verified | | | | | report. | | | + + + + + | ALT | 17Comment: This is an | 6 - 45 U/L | [facility] | | | appended report. These | | [facility] | | | results have [...] | | an appended report. | | [facility] | | | These results have been | | CENTER - | | | appended to a previously | | LABORATORY | | | preliminary verified | | | | | report. | | | + + + + + | Globulin | 3.6 | 2.1 - 3.8 g/dL | [facility] | | | | | [facility] | | | | | CENTER - | | | | | LABORATORY | + + + + + | Albumin/Globulin | 1.1 | 0.8 - 2.0 | [facility] | | Ratio | | | [facility] | | | | | CENTER - | | | | | LABORATORY | + + + + + | BUN/Creatinine Ratio | 28.6 | | [facility] | | | | | [facility] | | | | | CENTER [...] + | [facility] | [address] | [place] | [phone] | | [facility] | | [id number] | | | - LABORATORY | | | | + + + + + | [facility] | [address] | [place] | | | [facility] | | [id number] | | | - LABORATORY | | [...] +--------+ +---------+ | MEDICARE | MEDICA | [id number] | Medica | [phone] | | | | RE | | re | [phone] | | | | PART A | | | | | | | AND B | | | | | + +--------+ +--------+ +---------+ | [place]ICAID [place] | MEDICA | [id number] | Medica | [phone] | | [...] [address] | | [place] | al/Domingo | | 1975 | [phone] [place], [place] | | | mikayla | | | [phone] | [phone] | + +[phone]+ +--------+ + + | DESIRE GARRETT | Third | Self [birth year] | Home: | [address] [place] [address] Fabio | | [place] | Jeff | | 1975 | [phone] | [facility]ES [facility] [place] | | | [place] | | | [phone] | [phone] | | | ity | | | | | + +--------+ +--------+ + +
--- OUTSIDE RECORDS SUMMARY | ~2018-06-04 | XMS | Encounter Summary ---
Demographics + + + | Address | [address] | | | [place] [address] | + + + | Home Phone | | + + + | Preferred Language | Unknown | + + + | Marital Status | Legally | + + + | Voodoo Affiliation | 1025 | + + + | Race | Unknown | + + + | Ethnic Group | Unknown | + + + Author + + + | Author | [facility] | | | and [place] | + + + | Organization | [facility] | | | and [place] | + + + | Address | Unknown | + + + | Phone | Unavailable | + + + Support + + + + + | Name | Relationship | Address | Phone | + + + + + | Mar Ahmadi | ECON | NA | | | | | [place] [address] | | + + + + + | Magdaleno Vásquez | ECON | [address] | | | o | | [place] | | | | | [address] | | + + + + + Care Team Providers + +------+ + | Care Fruit And Vegetable Classer Name | Role | Phone | + [...] + + | 05/05/ | Emergency | [facility] | Darrion Locke, | Strain of neck | | 2019 | | [facility] EM[facility] | MD [address] | muscle, initial | | | | CENTER [address] | [facility] [place] | encounter (Primary | | | | [place], [place] | [place] [address] | Dx); Thoracic | | | | [address] | [phone] | myofascial strain, | | | | [phone] | | initial encounter; | | | [...] sent through Care Everywhere.Cervical Strain, Nupuran jose (Slovenian)Back Sprain/Strain (Slovenian)Hip Contusion (Slovenian)in this encounter Medications at Time of Discharge [...] | | | | | [place] [address] | | | | | | [phone] | | | | | | | | +--------+ + + + + | 02/24/ | Appointment | Oncology | Guillermo, | | | 2018 | | | Luke Antony MD [address] | | | | | | [place] | | | | | | [place] [address] | | | | | | [phone] | | | | | | | [...]
--- OUTSIDE RECORDS SUMMARY | ~2018-06-04 | XMS | Encounter Summary ---
Demographics + + + | Address | [address] | | | [place] [address] | + + + | Home Phone [...] + | Organization | [facility] | | | and [place] | + + + | Address | Unknown | + + + | Phone | Unavailable | + + + Support + + + + + | Name | Relationship | Address | Phone | + + + + + | Mar Ahmadi | ECON | NA | | | | | [place] [address] | | + + + + + | Magdaleno Vásquez | ECON | [address] | | | o | | [place] | | | | | [address] | | + + + + + Care Team Providers + +------+ + | Care Cable Placer Name | Role | Phone | + [...] + + | 06/03/ | Emergency | [facility] | Luke Meyer | Anxiety (Primary Dx) | | 2019 | | MED CTR EMERGENCY | Tanmay Stafford MD | | | | | CENTER [address] | [address] | | | | | [place] | [place] | | | | | [address] | [address] | | | | | [phone] | | | +--------+ + + + [...] or use drugs 3. Call [facility] at [phone] or return to the ER if you feel suicidal, homicidal o r unsafe [facility] has walk-in intake hours at their main office at [address] [place] [address]. They have two appointments at 8:30am and [...] [address] | | | | | | [address] [place] | | | | | | [place] [address] | | | | | | [phone] | | | | | | | | +--------+ + + + + | 02/24/ | Appointment | Oncology | Guillermo, | | | 2018 | | | MD Prosper [address] | | | | | | [address] [place] | | | | | | [place] [address] | | | | | | [phone] | | | | | | | [...] DESIRE | | | | | | [id number] | | | [id number] | | | [place] | | | [...] | | | St. | | | [place] | | | y | | | [...] | | | St. | | | [place] | | | y H. | | [...] | | | St. | | | [place] | | | y H. | | [...] Broken | | | | | | internal medicine specialist | | | al | | | [...] CARSON MD | | | | | ([id number]) on 06/04/2018 | | | | | [...]
--- OUTSIDE RECORDS SUMMARY | ~2018-06-04 | XMS | Encounter Summary ---
Demographics + + + | Address | [address] | | | [place] [address] | + + + | Home Phone | | + + + | Preferred Language | Unknown | + + + | Marital Status | Legally | + + + | Advent Affiliation | 1025 | + + + | Race | Unknown | + + + | Ethnic Group | Unknown | + + + Author + + + | Author | [facility] | | | and [place] | + + + | Organization | [facility] | | | and [place] | + + + | Address | Unknown | + + + | Phone | Unavailable | + + + Support + + + + + | Name | Relationship | Address | Phone | + + + + + | Mar Ahmadi | ECON | NA | | | | | [place] [address] | | + + + + + | Magdaleno Vásquez | ECON | [address] | | | o | | [place] | | | | | [address] | | + + + + + Care Team Providers + +------+ + | Care Mobile Plant Operators Name | Role | Phone | + [...] + | 03/30/ | Documentati | [facility] | Alyssia Perez, | Discharge Without | | 2019 | on | MED CTR THERAPY PT | PT [address] | Visit | | | | OP [address] | [place] | | | | | [place] | [address] | | | | | [address] | | | | | | [phone] | | | +--------+ + + + [...] Notes Alyssia Perez, PT - [facility]30/2018 [facility] [address] [place] [address] Physical Therapy Discharge Note This discharge is [...] | | | | | [place] [address] | | | | | | [phone] | | | | | | | | +--------+ + + + + | 02/24/ | Appointment | Oncology | Guillermo, | | | 2018 | | | MD [address] | | | | | | [place] | | | | | | [place] [address] | | | | | | [phone] | | | | | | | | +--------+ + + + + as of this encounter Visit Diagnoses Not on filein this encounter"
--- OUTSIDE RECORDS SUMMARY | ~2018-06-04 | XMS | Clinical Summary ---
Demographics + + + | Address | [address] | | | [place] [address] | + + + | Home Phone | | + + + | Preferred Language | Unknown | + + + | Marital Status | Legally | + + + | Sikhism Affiliation | 1025 | + + + | Race | Unknown | + + + | Ethnic Group | Unknown | + + + Author + + + | Author | [facility] | | | and [place] | + + + | Organization | [facility] | [...] | | | | | [place] [address] | | + + + + + | Magdaleno Vásquez | ECON | [address] | | | o | | [place] | | | | | [address] | | + + + + + Care Team Providers + +------+ + | Care Size Marker Name | Role | Phone | + [...] bariatric surgery. Recent labs obtained by her java xml developer's | | are reassurance regarding her vitamin [...] Iron deficiency following | | bariatric surgery.1. [place] en Y Gastric Bypass October 08, 2015 at | | [facility].2. Patient continues to menstruate regularly following | | bypass surgery. 3. Iron Studies at [facility] January 04, 2016; Iron 47 | | ug/dl, TIBC 441 ug/dl, Saturation 11 %, Ferritin 15 ng/ml.4. | | Ferrlecit 125 mg iv weekly x 4 January,.5. Iron Studies at | | [facility] July 07, 2016; Iron | | [...] + + + + | Bipolar disorder ([facility]) | 01/14/2011 | + + + [...] | Obesity, morbid, BMI 50 or higher ([facility]) | 08/14/2004 | + + + + + | Overview: Overview: | | BMI 54.8 | | | | Last Assessment & Plan: | | DOing well post bariatric surgery. Keep follow up in [place], | | | | Overview: | | BMI 54.8 | | | | Last Assessment & Plan: | | DOing well post bariatric surgery. Keep follow up in [place], | + + Encounters +--------+ + + [...] [address] | | | | | | [address] [place] | | | | | | [place] [address] | | | | | | [phone] | | | | | | | | +--------+ + + + + | 02/24/ | Appointment | | Guillermo, | | | 2018 | | | uLke Antony MD [address] | | | | | [address] [place] | | | | | | [place] [address] | | | | | | [phone] | | | | | | | [...] + +--------+--------+ +--------+--------+--------+ | Imp Knee Stem [place] Por | Generi | Right: | CARO - | | 09/09/ | [id number] | | 12.5x150 - | c | Knee | ZIMM | | 2027 | / | | [id number]: Qty: 1 | | | | | | /[id number] | | on 11/12/2017 by Elmer, | | | | | | 0 | | Philippe Brody MD | | | | | | | + +--------+--------+ +--------+--------+--------+ | Tee Bone Palacos-R 40gm - | Generi | Right: | CARO - | | 04/22/ | 00-111 | | [id number]: Qty: 2 | c | Knee | ZIMM | | 2022 | 2-140- | | on 11/12/2017 by Elmer, | | | | | | 01 / | | Philippe Brody MD | | | | | | /[id number] | | | | | | | | 767 | + +--------+--------+ +--------+--------+--------+ | Imp Knee Femur Axle Oss - | Generi | Right: | CARO - | | 09/30/ | 728479 | | [id number]: Qty: 1 | c | Knee | ZIMM | | 2027 | / | | on 11/12/2017 by Elmer, | | | | | | /[id number] | | Philippe Brody MD | | | | | | 0 | + +--------+--------+ +--------+--------+--------+ | Imp Knee Yoke Reinf Oss - | Generi | Right: | CARO - | | 10/28/ | [id number] | | [id number]: Qty: 1 | c | Knee | ZIMM | | 2027 | / | | on 11/12/2017 by Elmer, | | | | | | /[id number] | | Philippe Brody MD | | | | | | 0 | + +--------+--------+ +--------+--------+--------+ | Imp Knee Fem Bshng Poly Oss - | Generi | Right: | CARO - | | 09/15/ | 224047 | | [id number]: Qty: 1 | c | Knee | ZIMM | | 2022 | / | | on 11/12/2017 by Elmer, | | | | | | / | | Philippe Brody MD | | | | | | 0 | + +--------+--------+ +--------+--------+--------+ | Imp Knee Tib Bshng Poly Oss - | Generi | Right: | CARO - | | 09/10/ | 495646 | | [id number]: Qty: 1 | c | Knee | ZIMM | | 2022 | / | | on 11/12/2017 by Elmer, | | | | | | / | | Philippe Brody MD | | | | | | 0 | + +--------+--------+ +--------+--------+--------+ | Imp Knee Tib Bsplt Lng Oss 63 | Generi | Right: | CARO - | | 07/29/ | [id number] | | - [id number]: Qty: | c | Knee | ZIMM | | 2027 | / | | 1 on 11/12/2017 by Elmer, | | | | | | /[id number] | | Philippe Brody MD | | | | | | 0 | + +--------+--------+ +--------+--------+--------+ | Imp Knee Rev Tib Poly Oss | Generi | Right: | CARO - | | 06/21/ | 149850 | | 18mm - [id number]: | c | Knee | ZIMM | | 2021 | / | | Qty: 1 on 11/12/2017 by | | | | | | /[id number] | | Philippe Payne MD | | | | | | 0 | + +--------+--------+ +--------+--------+--------+ | Imp Knee Pin Lock Poly Oss - | Generi | Right: | CARO - | | 09/14/ | 116778 | | [id number]: Qty: 1 | c | Knee | ZIMM | | 2022 | / | | on 11/12/2017 by Elmer, | | | | | | / | | Philippe Brody MD | | | | | | 0 | + +--------+--------+ +--------+--------+--------+ | Imp Knee Resurf Oss 3cm Rt - | | Right: | CARO - | | 11/06/ | 333500 | | [id number]: Qty: 1 | | Knee | ZIMM | | 2024 | / | | on 11/12/2017 by Elmer, | | | | | | /63523 | | Philippe Brody MD | | [...] [place] | | | | | | [id number] | | | [id number] | | | [place] | | | [...] | | | St. | | | [place] | | | y | | | [...] | | | St. | | | [place] | | | y H. | | [...] | | | St. | | | [place] | | | y H. | | [...] Broken | | | | | | internist medical doctor md | | | al | | | [...] PIERRE, JOSETTE | | | | | ([id number]) on 06/04/2018 | | | | | [...] [facility] | | | | | [facility] | | | | | [...] + | [facility] | [address] | [place] | [phone] | | [facility] | | [address] | | | - LABORATORY | | | | + + + + + | [facility] | [address] | [place] | | | [facility] | | [address] | | | - LABORATORY | | | | + + + + + , Urine, Qual (03/27/2018221) + + + + + | Component | Value | Ref Range | Performed At | + + + + + | HCG SCREEN, URINE | Negative | Negative | [facility] | | | | | [facility] | | | | | [...] | + + + + + | [facility] | [address] | [place], [place] | [phone] | | [facility] | | [address] | | | - LABORATORY | | | | + + + + + | [facility] | [address] | [place], [place] | | | [facility] | | [address] | | | - LABORATORY | | [...] + | [facility] | [address] | [place], [place] | [phone] | | [facility] | | [address] | | | - LABORATORY | | | | + + + + + | [facility] | [address] | [place], [place] | | | [facility] | | [address] | | | - LABORATORY | | [...] Trim. Absolute (K/uL) Percentage (%) | [facility] | | 1st 0.003-0.091 K/uL 0.0-0.9% 2nd 0.007-0.247 K/uL | [facility] | | 0.1-2.0% 3rd 0.018-0.456 K/uL 0.1-2.0% | - LABORATORY | + + + + + + + + | Performing | Address | City/State/Zipcode | Phone Number | | Organization | | | | + + + + + | [facility] | [address] | [place] | [phone] | | [facility] | | [address] | | | - LABORATORY | | | | + + + + + | [facility] | [address] | [place] | | | [facility] | | [address] | | | - LABORATORY | | | | + + + + + TSH (03/27/2018221) + + + + + | Component | Value | Ref Range | Performed At | + + + + + | TSH | 1.07Comment: This is a | 0.45 - 5.33 uIU/mL | [facility] | | | third generation TSH | | [facility] | | | test. | [...] + | [facility] | [address] | [place], [place] | [phone] | | [facility] | | [address] | | | - LABORATORY | | | | + + + + + | [facility] | [address] | [place] | | | [facility] | | [address] | | | - LABORATORY | | | | + + + + + Ethanol (03/27/2018221) + +-------+ + + | Component | Value | Ref Range | Performed At | + +-------+ + + | ALCOHOL, | <5 | <400 mg/dL | [facility] | | SERUM/PLASMA | | | [facility] | | | | | [...] + | [facility] | [address] | [place] | [phone] | | [facility] | | [address] | | | - LABORATORY | | | | + + + + + | [facility] | [address] | [place] | | | [facility] | | [address] | | | - LABORATORY | | | | + + + + + Acetaminophen Level (03/27/2018221) + +-------+ + + | Component | Value | Ref Range | Performed At | + +-------+ + + | Acetaminophen Level | <10 | <10 ug/mL | [facility] | | | | | [facility] | | | | | [...] + | [facility] | [address] | [place] | [phone] | | [facility] | | [address] | | | - LABORATORY | | | | + + + + + | [facility] | [address] | [place] | | | [facility] | | [address] | | | - LABORATORY | | | | + + + + + Salicylate Level (03/27/2018221) + +-------+ + + | Component | Value | Ref Range | Performed At | + +-------+ + + | Salicylate Level | <4.0 | <30.0 mg/dL | [facility] | | | | | [facility] | | | | | [...] + | [facility] | [address] | [place] | [phone] | | [facility] | | [address] | | | - LABORATORY | | | | + + + + + | [facility] | [address] | [place] | | | [facility] | | [address] | | | - LABORATORY | | [...] [facility] | | | | | [facility] | | | | | CENTER - | | | | | LABORATORY | + + + + + | eGFR if not | >60Comment: GLOMERULAR | >=60 mL/min/1.73m2 | [facility] | | [place] | FILTRATION | | [facility] | | | RATE,ESTIMATED mL/min | | CENTER - | | | /1.28z4Hzqq than 60 | | LABORATORY | | [...] [place]. | | | | | [facility] | | | | | CENTER - | | | | | LABORATORY | + + + + + | Albumin | 4.0 | 3.2 - 5.0 g/dL | [place] | | | | | [facility] | | | | | CENTER - | | | | | LABORATORY | + + + + + | Bilirubin Total | 0.5Comment: This is an | 0.1 - 1.5 mg/dL | [facility] | | | appended report. These | | [facility] | | | results [...] | | appended report. These | | [facility] | | | results [...] | | an appended report. | | [facility] | | | These results have [...] 0.8 - 2.0 | [facility] | | Ratio | | | [facility] | | | | | CENTER - | | | | | LABORATORY | + + + + + | BUN/Creatinine Ratio | 28.6 | | [facility] | | | | | [facility] [...] + | [facility] | [address] | [place] | [phone] | | [facility] | | [address] | | | - LABORATORY | | | | + + + + + | [facility] | [address] | [place] | | | [facility] | | [address] | | | - LABORATORY | | [...] +--------+ +---------+ | MEDICARE | MEDICA | [id number] | Medica | [phone]--- | | | | RE | | re | [phone] | | | | PART A | | | | | | | AND B | | | | | + +--------+ +--------+ +---------+ | MEDICAID [place] | MEDICA | [id number] | Medica | [phone] | | [...] al/Domingo | | 1975 | [phone] | [place], [place] | | | mikayla | | | [phone] | [phone] | + +--------+ +--------+ + + | DESIRE GARRETT | Third | Self | [birth year] | Home: | [address] [place] [address] Fabio | | SHANNON | Jeff | | 1975 | [phone] | [facility] | | | [place] | | | [phone] | [address] | | | ity | | | | | + +--------+ +--------+ + +
--- OUTSIDE RECORDS SUMMARY | ~2018-06-04 | XMS | Encounter Summary ---
Demographics + + + | Address | [address] | | | [place] [address] | + + + | Home Phone | | + + + | Preferred Language | Unknown | + + + | Marital Status | Legally | + + + | Confucianism Affiliation | 1025 | + + + | Race | Unknown | + + + | Ethnic Group | Unknown | + + + Author + + + | Author | [facility] | | | and [place] | + + + | Organization | [facility] | | | and [place] | + + + | Address | Unknown | + + + | Phone | Unavailable | + + + Support + + + + + | Name | Relationship | Address | Phone | + + + + + | Mar Ahmadi | ECON | NA | | | | | [place] [address] | | + + + + + | Magdaleno Vásquez | ECON | [address] | | | o | | [place] | | | | | [address] | | + + + + + Care Team Providers + +------+ + | Care Educational Therapist Name | Role | Phone | [...] | 03/27/ | Emergency | [facility] | Yemi Brian, | Bipolar I disorder, | | 2019 | | [facility] | [address] | single manic | | | | CENTER [address] | [place], [place] | episode, severe, | | | | [place], [place] | [phone] | with psychosis (HCC) | | | | [address] | | (Primary Dx); | | | | [phone] | Luke Fuentes | Medical clearance | | | | | MD Iman [address] | for psychiatric | | | | | ST [place], [place] | admission | | | | | [address] | | | | | | [phone] | | | | | | | [...] W | | | | | | [address] [place] | | | | | | [place] [address] | | | | | | [phone] | | | | | | | | +--------+ + + + + | 02/24/ | Appointment | Oncology | Guillermo, | | | 2018 | | | Luke Antony MD [address] | | | | | [address] [place] | | | | | | [place] [address] | | | | | | [phone] | | | | | | | [...] [facility] | | | | | [facility] | | | | [...] + | [facility] | [address] | [place] | [phone] | | [facility] | | [address] | | | - LABORATORY | | | | + + + + + | [facility] | [address] | [place], [place] | | | [facility] | | [address] | | | - LABORATORY | | | | + + + + + POC Glucose (03/27/2018845) + +---------+ + + | Component | Value | Ref Range | Performed At | + +---------+ + + | Glucose, POC | 201 (H) | 70 - 109 mg/dL | [facility] | | | | | [facility] | | | | [...] + | [facility] | [address] | [place], [place] | [phone] | | [facility] | | [address] | | | - LABORATORY | | | | + + + + + | [facility] | [address] | [place], [place] | | | [facility] | | [address] | | | - LABORATORY | | | | + + + + + TSH (03/27/2018221) + + + + + | Component | Value | Ref Range | Performed At | + + + + + | TSH | 1.07Comment: This is a | 0.45 - 5.33 uIU/mL | [facility] | | | third generation TSH | | [facility] | | | test. [...] + | [facility] | [address] | [place] | [phone] | | [facility] | | [address] | | | - LABORATORY | | | | + + + + + | [facility] | [address] | [place], [place] | | | [facility] | | [address] | | | - LABORATORY | | | | + + + + + , Urine, Qual (03/27/2018221) + + + + + | Component | Value | Ref Range | Performed At | + + + + + | HCG SCREEN, URINE | Negative | Negative | [facility] | | | | | [facility] | | | | [...] + | [facility] | [address] | [place], [place] | [phone] | | [facility] | | [address] | | | - LABORATORY | | | | + + + + + | [facility] | [address] | [place], [place] | | | [facility] | | [address] | | | - LABORATORY | | | | + + + + + Salicylate Level (03/27/2018221) + +-------+ + + | Component | Value | Ref Range | Performed At | + +-------+ + + | Salicylate Level | <4.0 | <30.0 mg/dL | [facility] | | | | | [facility] | | | | [...] [address] | [place] | [phone] | | [facility] | | [address] | | | - LABORATORY | | | | + + + + + | [facility] | [address] | [place] | | | [facility] | | [address] | | | - LABORATORY | | | | + + + + + Acetaminophen Level (03/27/2018221) + +-------+ + + | Component | Value | Ref Range | Performed At | + +-------+ + + | Acetaminophen Level | <10 | <10 ug/mL | [facility] | | | | | [facility] | | | | [...] + | [facility] | [address] | [place] | [phone] | | [facility] | | [address] | | | - LABORATORY | | | | + + + + + | [facility] | [address] | [place] | | | [facility] | | [address] | | | - LABORATORY | | | | + + + + + Ethanol (03/27/2018221) + +-------+ + + | Component | Value | Ref Range | Performed At | + +-------+ + + | ALCOHOL, | <5 | <400 mg/dL | [facility] | | SERUM/PLASMA | | | [facility] | | | | | CENTER - | | | | | LABORATORY | + +-------+ + + + + | Specimen | + + | Blood | + + + + + + + | Performing | Address | City/[facility] | Phone Number | | Organization | | | | + + + + + | [facility] | [address] | [place] | [phone] | | [facility] | | [address] | | | - LABORATORY | | | | + + + + + | [facility] | [address] | [place] | | | [facility] | | [address] | | | - LABORATORY | | | | + + + + + Drugs of Abuse, Screen, Urine (03/27/2018221) + + + + + | Component | Value | Ref Range | Performed At | + + + + + | Amphetamine Screen, | Negative | Negative | [facility] | | Urine | | | [facility] | | | | | CENTER - | | | | | LABORATORY | + + + + + | Barbiturates Screen, | Negative | Negative | [facility] | | Urine | | | [facility] | | | | | [...] + | [facility] | [address] | [place], [place] | [phone] | | [facility] | | [address] | | | - LABORATORY | | | | + + + + + | [facility] | [address] | [place], [place] | | | [facility] | | [address] | | | - LABORATORY | | [...] 16 | 7 - 18 mg/dL | [facility] | | | | | [facility] | | | | | CENTER - | | | | | LABORATORY | + + + + + | Creatinine | 0.56 (L) | 0.60 - 1.30 mg/dL | [facility] | | | | | [facility] | | | | | CENTER - | | | | | LABORATORY | + + + + + | eGFR if not | >60Comment: GLOMERULAR | >=60 mL/min/1.73m2 | [facility] | | SYRIAN | FILTRATION | | [facility] | | | RATE,ESTIMATED mL/min | | CENTER - | | | /1.29o4Qpcu than 60 | | LABORATORY | | [...] ST. | | Ratio | | | [facility] | | | | | CENTER - | | | | | LABORATORY | + + + + + | BUN/Creatinine Ratio | 28.6 | | [facility] | | | | | [facility] | | | | | [...] + | [facility] | [address] | [place] | [phone] | | [facility] | | [address] | | | - LABORATORY | | | | + + + + + | [facility] | [address] | [place] | | | [facility] | | [address] | | | - LABORATORY | | [...] [facility] | | | | | [facility] | | | | | [...] ranges: Trim. Absolute (K/uL) Percentage (%) | [facility] | | 1st 0.003-0.091 K/uL 0.0-0.9% 2nd 0.007-0.247 K/uL [facility] | | 0.1-2.0% 3rd 0.018-0.456 K/uL 0.1-2.0% | - LABORATORY | + + + + + + + + | Performing | Address | City/State/Zipcode | Phone Number | | Organization | | | | + + + + + | [facility] | [address] | [place], [place] | [phone] | | [facility] | | [address] | | | - LABORATORY | | | | + + + + + | [facility] | [address] | [place], [place] | | | [facility] | | [address] | | | - LABORATORY | | [...]
--- OUTSIDE RECORDS SUMMARY | ~2018-06-04 | XMS | Encounter Summary ---
Demographics + + + | Address | [address] | | | [place] [address] | + + + | Home Phone | | + + + | Preferred Language | Unknown | + + + | Marital Status | Legally | + + + | Methodist Affiliation | 1025 | + + + | Race | Unknown | + + + | Ethnic Group | Unknown | + + + Author + + + | Author | [facility] | | | and [place] | + + + | Organization | [facility] | | | and [place] | + + + | Address | Unknown | + + + | Phone | Unavailable | + + + Support + + + + + | Name | Relationship | Address | Phone | + + + + + | Mar Ahmadi | ECON | NA | | | | | [place] [address] | | + + + + + | Magdaleno Vásquez | ECON | [address] | | | o | | [place] | | | | | [address] | | + + + + + Care Team Providers + +------+ + | Care Surgical Specialist Name | Role | Phone | [...] + + | 05/05/ | Emergency | [facility] | Darrion Locke, | Strain of neck | | 2019 | | [facility] CTR EM[facility] | MD [address] | muscle, initial | | | | CENTER [address] | [facility] [place] | encounter (Primary | | | | [place], [place] | [place] [address] | Dx); Thoracic | | | | [address] | [phone] | myofascial strain, | | | | [phone] | | initial encounter; | | | [...] sent through Care Everywhere.Cervical Strain, Nupuran jose (Thai)Back Sprain/Strain (Thai)Hip Contusion (Thai)in this encounter Medications at Time of Discharge [...] | | | | | [place] [address] | | | | | | [phone] | | | | | | | | +--------+ + + + + | 02/24/ | Appointment | Oncology | Guillermo, | | | 2018 | | | Luke Antony MD [address] | | | | | [address] | | | | | | [place] [address] | | | | | | [phone] | | | | | | | [...]
--- OUTSIDE RECORDS SUMMARY | ~2018-06-04 | XMS | Clinical Summary ---
Demographics + + + | Address | [address] | | | [place] [address] | + + + | Home Phone | | + + + | Preferred Language | Unknown | + + + | Marital Status | | + + + | Baptist Affiliation | JEH | + + + [...] Team Providers + +------+ + | Care Certified Green Building Engineer Name | Role | Phone | + +------+ + | Barbara Hill MD | PP | | + +------+ + Source Comments NATASHA is fully live on both [facility] Ambulatory and [facility] InPatient.[facility] Allergies No Known Allergies Current Medications + [...] + | DM type 2 without retinopathy ([facility]) | 08/02/2015 | + + [...] Morbid obesity with BMI of 50.0-59.9, adult ([facility]) | 05/11/19 | | | [...] - | | | | | | /[id number] | | [id number]: Qty: 2 on | | | | [...] | | n | | | | /[id number] | | | | | | | [...] & | | re | [address] | [place] [address] | | | B | | | | | + +--------+ +--------+ + + | FOAM CHARGER MEDICAID | FOAM CHARGER | xxxxxxxx | Medica | | | [...] | Home: | [address] | | A | al/Domingo | | 1975 | [phone] | [place] | | | mikayla | | | [phone] | [address] | + +--------+ +--------+ + +
[~2018-06-04 19:29] MED LIST changes: +ALTOPREV40 MG PO; +B-121000 MC2 PO; +DEPAKOTE500 MG PO; +LATUDA60 MG PO; +METFORMIN HCL500 M2 PO; +VITAMIN D1000 UNIT PO
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
[2018-06-05] MEDS ORDERED: HALOPERIDOL5 MG PO (00:48)
[2018-06-05] MEDS ORDERED: ARIPIPRAZOLE10 MG PO (00:48)
[2018-06-05] MEDS ORDERED: DIVALPROEX SOD500 M1 PO (00:48)
--- NOTE | 2018-06-05 20:37 | EKG ---
[facility] [address] [place], [place] [address] Signed Normal sinus rhythm Normal ECG No previous ECGs available Confirmed by CARLITO WALKER DO ([id number]) on 06/05/2018 8:37:02 PM Electronically Signed By: CARLITO WALKER DO 06/05/18 2037 PATIENT NAME: MELISSA GARRETT SHANNON Electrocardiogram DATE OF : 73 PHYSICIAN: CARLITO WALKER DO REPORT #: [id number] REPORT IS CONFIDENTIAL AND NOT TO BE RELEASED WITHOUT AUTHORIZATION
== END 2018-06-08 21:34 | disposition short-term general hospital (02) ==
LOC: ED 19:29
DX: F31.9 Bipolar disorder, unspecified (principal); F22 Delusional disorders; E11.9 Type 2 diabetes mellitus without complications; E78.00 Pure hypercholesterolemia, unspecified; Z79.899 Other long term (current) drug therapy; Z79.84 Long term (current) use of oral hypoglycemic drugs
CPT/HCPCS: 80053; 80176; 81001; 84443; 84703; 85025; 93005; 93010; 96372; 99284-25; G0480; J1630; J2060; J3486

== ENCOUNTER 2023-07-23 19:48 | Emergency (ER) | payer OTHER, MEDICARE ==
[~2023-07-23] VITALS: Ht 167.6 cm; Wt 100.4 kg
[~2023-07-23 19:48] MED LIST changes: +ARIPIPRAZOLE10 MG PO; +ARISTADA882 MG/3.2 IM; +DIVALPROEX SOD500 M1 PO; +HALOPERIDOL5 MG PO; +HYDROXYZINE HCL25 MG PO
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
[2023-07-23] MEDS ORDERED: LACTATED RINGER'S 1,000 ML IV ONE (20:15)
[2023-07-23] MEDS ORDERED: Insulin Regular, Human 100 UNIT/ML ML IV ONE (20:15)
[2023-07-23] MEDS ORDERED: IBLOOD GLUCOSE TEST STRIP 1 EA TEST VI ONE (20:15)
[2023-07-23] MEDS ORDERED: KETOROLAC TROMETHAMINE 30 MG/ML VIAL IV ONE (20:15)
[2023-07-23 20:45] LABS: BASOPHILS 0.3 % (0-2); EOSINOPHILS 0.5 % (0-6); HEMATOCRIT 36.1 % (35.0-50.0); HEMOGLOBIN 12.3 g/dL (12.0-18.0); LYMPHOCYTES 28.1 % (24-44); MCH 29.7 (27-36); MCV 87.5 fl (81-99); MONOCYTES 6.8 % (0-12); NEUTROPHILS 64.3 % (39-80); PLATELET COUNT 267 K/uL (140-440); RBC 4.13 M/ul (4.3-5.7); RDW 14.3 (10.5-15.0)
[2023-07-23 20:58] LABS: ALBUMIN 3.3 g/dL (3.4-5.0); ALBUMIN/GLOBULIN RATIO 0.92 (1.1-2.4); BILIRUBIN, TOTAL 0.2 ng/dL (0.2-1.0); BUN/CREATININE RATIO 15.94 (6.0-28.6); CALCIUM 8.9 mg/dL (8.5-10.1); CREATININE, SERUM 0.69 mg/dL (0.55-1.02); PROTEIN, TOTAL 6.9 g/dL (6.4-8.2)
[2023-07-23] MEDS ORDERED: MORPHINE SULFATE 4 MG/ML VIAL IV ONE (22:00)
[2023-07-23] MEDS ORDERED: DEXAMETHASONE SOD PHOS 10 MG/ML VIAL IV ONE (22:15)
[2023-07-23] MEDS ORDERED: diphenhydrAMINE HCL 50 MG/ML VIAL IV ONE (22:15)
[2023-07-23] MEDS ORDERED: FAMOTIDINE 20 MG/ 2 ML VIAL IV ONE (22:15)
[2023-07-23] MEDS ORDERED: CYCLOBENZAPRINE10 MG PO (22:18)
[2023-07-23 23:10] VITALS: BP 150/64
[2023-07-24] MEDS ORDERED: CELEBREX200 MG PO (05:29)
[2023-07-24] MEDS ORDERED: DIAZEPAM2 MG PO (05:29)
== END 2023-07-23 23:13 | disposition home or self-care (01) ==
LOC: ED 19:48
PROVIDERS: Family Medicine
DX: S16.1XXA Strain of muscle, fascia and tendon at neck level, initial encounter (principal); S09.90XA Unspecified injury of head, initial encounter; M25.562 Pain in left knee; E11.9 Type 2 diabetes mellitus without complications; F31.9 Bipolar disorder, unspecified; W18.30XA Fall on same level, unspecified, initial encounter; Z79.84 Long term (current) use of oral hypoglycemic drugs; Z79.899 Other long term (current) drug therapy
CPT/HCPCS: 36415; 70450; 72125; 73560; 80053; 84703; 85025; 96374; 96375; 99284-25; J1100; J1200; J1815; J1885; J2270; J7121

== ENCOUNTER 2023-07-24 04:57 | Emergency (ER) | payer OTHER, MEDICARE ==
[~2023-07-24] VITALS: Ht 167.6 cm; Wt 90.0 kg
[~2023-07-24 04:57] MED LIST changes: +CYCLOBENZAPRINE10 MG PO
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
[2023-07-24] MEDS ORDERED: CELECOXIB 200 MG CAP PO ONE (05:15)
[2023-07-24] MEDS ORDERED: diazePAM 5 MG TAB PO ONE (05:15)
[2023-07-24] MEDS ORDERED: DIAZEPAM2 MG PO (05:29)
[2023-07-24] MEDS ORDERED: CELEBREX200 MG PO (05:29)
[2023-07-24 06:15] VITALS: BP 158/82
== END 2023-07-24 06:15 | disposition home or self-care (01) ==
LOC: ED 04:57
DX: S16.1XXA Strain of muscle, fascia and tendon at neck level, initial encounter (principal); E11.9 Type 2 diabetes mellitus without complications; W19.XXXA Unspecified fall, initial encounter; Z79.84 Long term (current) use of oral hypoglycemic drugs
CPT/HCPCS: 99283